=== PATIENT | male | born 1970 | race Two or more races ===

== ENCOUNTER 2020-08-08 09:56 | Emergency (ER) | payer OTHER, SELFPAY ==
--- NOTE | 2020-08-08 10:56 | XR_ITS ---
EXAMINATION: XR CHEST CLINICAL INFORMATION: Cough. COMPARISON: None TECHNIQUE: Frontal view of the chest was obtained. FINDINGS: No significant abnormality is noted involving the heart, lungs, mediastinum, bony thorax or soft tissues. XR/XR chest 1V IMPRESSION: Unremarkable chest examination.
[2020-08-08 11:11] VITALS: BP 159/107; PULSE 94; RESP 17; TEMP 37.3; O2SAT 99; BMI 26.6
--- NOTE | 2020-08-08 11:21 | ED.GENADULT ---
HPI - General Adult General Chief complaint: General Medical Stated complaint: covid symptoms Time Seen by Provider: 08/08/20 10:56 Source: patient Mode of arrival: ambulatory Limitations: language barrier History of Present Illness HPI narrative: 49 y/o male presenting with a few days of flu-like symptoms including subjective fevers, headaches, slight dizziness and diffuse body aches. He also admits to mild nausea but he has been able to eat and drink normally. He denies abdominal pain, shortness of breath, chest pain. He has a slight dry cough but it is not bothersome. He has been taking Tylenol with no improvment. MD complaint: flu-like symptoms Onset (ago): day(s) (2) Location: head and back Radiation: non-radiation Severity: moderate Quality: aching Pain Consistency: intermittent Relieving factors: none Exacerbating factors: movement Associated symptoms: cough, fever/chills, headaches and malaise Treatments prior to arrival: none Related Data Allergies Allergy/AdvReac Type Severity Reaction Status Date / Time No Known Allergies Allergy Verified 08/08/20 11:13 [No Known Allergies*] Review of Systems Review of Systems: Constitutional: + Fever, + Chills ENT/Mouth: + sore throat (mild), No Rhinorrhea, No Swallowing Difficulty Eyes: No Eye Pain, No Swelling, No Redness Cardiovascular: No Chest Pain, No SOB, No Orthopnea, No Edema Respiratory: + Cough, No Sputum, No Wheezing, No dyspnea Gastrointestinal: + Nausea, No Vomiting, No Diarrhea, No abdominal Pain Genitourinary: No Dysuria, No Urinary Frequency, No Hematuria Musculoskeletal: No joint pain, + Myalgias Skin: No Skin Lesions, No rash Neuro: No Weakness, No Numbness, + Dizziness, + Headache Psych: No Anxiety/Panic, No Depression Heme/Lymph: No Bruising, No Lymphadenopathy PMFSH Past Medical History Attestation statement: The following information was validated with the patient. Medical History High cholesterol Social History Social History Advance Directives: No Advance Directives Information Provided: No Physical Exam Vital Signs: Vital Signs: Last Vital Signs Temp 99.1 F 08/08/20 11:11 Pulse 94 08/08/20 11:11 Resp 17 08/08/20 11:11 BP 159/107 H 08/08/20 11:11 Pulse Ox 99 08/08/20 11:11 Body Mass Index 26.6 Appearance: Alert. Oriented X3. No acute distress. Non-toxic appearing ENT: Pharynx normal. Neck: Normal inspection. Neck supple. CVS: Normal heart rate and rhythm. Pulses normal. Respiratory: No respiratory distress. Breath sounds normal. Abdomen: Soft and nontender. +BS x4 Skin: Skin warm and dry. Normal skin color. Normal skin turgor. No rashes. Extremities: No lower extremity edema. Neuro: Oriented X 3. No motor deficit. No sensory deficit. Course Course Course Narrative: 49 y/o male with history of HLD presenting with flu-like symptoms, concerning for COVID-19. VSS on arrival and lungs are clear. no respiratory distress. CXR is normal. Found to be COVID-19 positive. He was counseled on his diagnosis, management and warning signs/symptoms that should get emergent medical evaluation. Stable for discharge. Medical Decision Making Lab Data Labs: Lab Results 08/08/20 Range/Units 11:10 Coronavirus (PCR) POSITIVE A (Negative) Influenza Type A (PCR) NEGATIVE (Negative) Influenza Type B (PCR) NEGATIVE (Negative) RSV RNA Qual (PCR) NEGATIVE (Negative) Critical Care Time Critical Care Time Critical Care Time: No Discharge Plan Discharge Clinical Impression: COVID-19 Patient Disposition: Home, Self-Care Instructions: COVID-19 (Coronavirus Disease 2019) (ED) Additional Instructions: You were found to be COVID positive today. Your blood pressure was elevated, you should follow up with your doctor. Your oxygen levels were normal and your chest x-ray was normal. No indication for admission to the hospital at this time. Recommend taking over the counter cold/flu medications as needed for your symptoms. Take tylenol and/or motrin as needed for fever and headache. Rest and stay hydrated. Drink plenty of water. Do not go out in public for 2 weeks. If you develop difficultly breathing, shortness of breath, chest pain or any other concerning symptom come back to the ER for further evaluation. Print Language: Swedish
[2020-08-08 12:05] LABS: Influenza A PCR NEGATIVE (Negative); Influenza B PCR NEGATIVE (Negative); Resp Syncy Virus RNA Qual PCR NEGATIVE (Negative)
[2020-08-08 12:18] LABS: SARS COV2 PCR INHOUSE POSITIVE (Negative)
== END 2020-08-08 12:45 | disposition home or self-care (01) ==
PROVIDERS: Physician Assistant; Emergency Provider Emergency Medicine
DX: U07.1 COVID-19 (principal); R50.9 Fever, unspecified; R51.9 Headache, unspecified; R42 Dizziness and giddiness
CPT/HCPCS: 0241U; 71045; 99283

== ENCOUNTER 2024-07-01 12:08 | Outpatient (REF) | payer OTHER, SELFPAY ==
[2024-07-01 16:09] LABS: Appearance Urine Clear; Color Urine Yellow; Glucose Urine UA Negative (Negative); Leukocyte Esterase Urine Negative (Negative); Nitrite Urine Negative (Negative); Specific Gravity - Urine 1.015 (1.005-1.025); Urine Blood Negative (Negative); Urine Ketones Negative (Negative); Urine Protein Negative (Neg-Trace)
[2024-07-01 16:22] LABS: MANUAL DIFF FLAG NO
[2024-07-01 16:35] LABS: Basophils Percent Auto 0.4 % (0-2); Eosinophils Absolute Auto 0.2 X10*3/uL (0.0-0.4); Eosinophils Percent Auto 3.2 % (0-4); Hematocrit 44.8 % (42.0-52.0); Imm Gran Abs Auto 0.01 X10*3/uL (0.00-0.03); Imm Gran Pct Auto 0.2 % (0.0-0.4); Lymphocytes Absolute Auto 1.2 X10*3/uL (1.2-4.9); Lymphocytes Percent Auto 25.6 % (20-40); Mean Corpuscular HGB Conc 33.5 g/dl (31.0-36.0); Mean Corpuscular Hemoglobin 32.1 pg (27.0-33.0); Mean Corpuscular Volume 95.9 fL (80.0-98.0); Mean Platelet Volume 10.3 fL (9.4-12.4); Monocytes Absolute Auto 0.4 X10*3/uL (0.1-1.2); Monocytes Percent Auto 9.1 % (2-11); Neutrophils Absolute Auto 2.9 x10*3/uL (2.0-8.3); Neutrophils Percent Auto 61.5 % (45-73); Platelet Count 235 X10*3/uL (160-400); Red Blood Count 4.67 X10*6/uL (4.60-5.80); Red Cell Distribution Width 13.3 % (11.0-16.0); White Blood Count 4.7 X10*3/uL (4.8-10.8)
[2024-07-01 17:02] LABS: Alanine Aminotransferase 44 U/L (0-40); Albumin Level 4.7 g/dL (3.5-5.0); Alkaline Phosphatase 86 U/L (39-117); Anion Gap 13 (12-20); Aspartate Amino Transferase 47 U/L (5-37); Bilirubin Total 0.5 mg/dL (0.0-1.0); Blood Urea Nitrogen 10 mg/dL (9-16); Carbon Dioxide 26 mmol/L (22-29); Chloride 100 mmol/L (96-108); Cholesterol 310 mg/dL (<200); Estimated Glomerular Filt Rate > 60; Glucose Fasting 101 mg/dL (60-99); HDL Cholesterol 53 mg/dL (>40); LDL Cholesterol Calculated 226 mg/dL (<100); Potassium 3.8 mmol/L (3.3-5.1); Sodium 135 mmol/L (135-145); Total Protein 8.2 g/dL (6.5-8.0); Triglycerides 156 mg/dL (<150)
[2024-07-01 17:05] LABS: Prostate Specific Antigen Scr 0.34 ng/mL (<0.05-4.0)
[2024-07-01 17:07] LABS: TSH reflex Free T4 1.65 uIU/mL (0.32-4.0)
== END 2024-07-01 12:09 | disposition home or self-care (01) ==
LOC: HO.HMGCX 12:08
PROVIDERS: Visit Provider Nurse Practitioner Family
DX: I21.9 Acute myocardial infarction, unspecified (principal); R07.9 Chest pain, unspecified; M54.50 Low back pain, unspecified; F41.9 Anxiety disorder, unspecified
CPT/HCPCS: 36415; 72100; 80053; 80061; 81003; 84153; 84443; 85025; 96127; 99202

== ENCOUNTER 2024-07-01 12:08 | Outpatient (AMB) | payer OTHER, SELFPAY ==
[2024-07-01 12:21] VITALS: BP 150/102; PULSE 93; O2SAT 100; BMI 28.6
--- NOTE | 2024-07-01 12:21 | A.OFFPC_ITS ---
Vital Signs 07/01/24 12:21 07/01/24 13:31 Height 5 ft 6 in Weight 177 lb 8 oz BMI 28.6 BP 150/102 H 130/90 H Blood Pressure Location Rt brachial Rt brachial Position Sitting Sitting Pulse 93 Pulse Source Pulse Oximeter Pulse Oximetry (%) 100 Oxygen Delivery Method Room Air Intake Visit Reasons: Est care Heart conditions Allergies No Known Allergies [No Known Allergies*] Allergy (Verified 07/01/24 12:54) Medication List - Last Reconciled 07/01/24 by CHIQUITA Kebede aspirin (Adult Aspirin Regimen) 81 mg PO DAILY carvedilol 6.25 mg PO BID Tobacco use date assessed: 07/01/24 Dental Screening Dental Screen Date: 07/01/24 Did you have a dental visit in the last 12 months?: No Did you have a dental problem in the last 6 months where you did not have access to dental care?: No Was dental information given to patient?: Patient declined HPI Est care Heart conditions HPI Details History of Present Illness The patient is a 53-year-old male presenting (with his nephew for t ranslation)with angina pectoris associated with exertion. The patient experienced a myocardial infarction approximately 10 years ago and has a known history of high anxiety and hypertension. The patient reports that episodes of chest pain have occurred once a week over the past few weeks, typically during physical activity. The pain resolves upon rest, and there is no radiation to the arm. 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 The patient is currently on coreg 6.25 mg twice a day and aspirin 81 mg daily for management. The patient also has a history of herniated disc in the lower back identified on x-rays, presenting with severe pain without radiculopathy or bowel and bladder dysfunction. Social History Review of Systems - Cardiovascular: Reports exertional aleksandar st pain resolving at rest. Denies current chest pain at the time of examination. - Musculoskeletal: Denies radiculopathy, numbness, or tingling in the legs. - Neurological: Denies loss of bowel or bladder control. -psych denies any si or hi Physical Exam -A+O - Cardiovascular- s1 s2, no edema -GI diastasis rectus noted and small umb ilical hernia, soft abd - Musculoskeletal- Negative straight leg raises, positive patellar reflexes. - Respiratory- Lungs clear to auscultati on bilaterally. -appears very anxious Results EKG without anything acute (high anxiety) Plan Patient was informed and verbally consented to the use of an ambient scribe for clinic note documentation during this visit. Discussion Notes Patient Instructions - Continue current medications and start amlodipine (HTN) and Buspirone (anxiety) as prescribed. - Attend cardiology follow-up and echoca rdiogram + stress test as scheduled. - Monitor and immediately report any wor sening or persistent chest pain ( ER). - Refrain from activities that exacerbat e back pain. - Return for follow-up appointment and f urther evaluation based on additional diagnostic testing outcomes. [facility] Medical History (Updated 07/01/24 @ 14:01 [facility] High cholesterol Surgical History (Updated 07/01/24 @ 12:30 by Tawny Mensah CMA) H/O hernia repair H/O cardiac catheterization Family History (Updated 07/01/24 @ 12:31 by Tawny Mensah CMA) Sister Ovarian cancer Brother Throat cancer Social History (Updated 07/01/24 @ 12:29 by Tawny Mensah CMA) Household Members Other:: nephew Housing: Apartment Alcohol intake: current Alcohol intake frequency: a few times a month Patient Tobacco Use Status: Never used Tobacco e-Cigarette/Vaping Use: Never Used service: No Cognitive needs: No Hearing needs: No Vision needs: Yes Questionnaire PHQ-9 Over the last 2 weeks, how often have you been bothered by any of the following problems? 1. Little interest or pleasure in doing things: several days 2. Feeling down, depressed, or hopeless: not at all 3. Trouble falling or staying asleep, or sleeping too much: more than half the days 4. Feeling tired or having little energy: more than half the days 5. Poor appetite or overeating: not at all 6. Feeling bad about yourself - or that you are a failure or have let yourself or your family down: several days 7. Trouble concentrating on things, such as reading the newspaper or watching television: not at all 8. Moving or speaking so slowly that other people could have noticed. Or the opposite - being so fidgety or restless that you have been moving around a lot more than usual: several days 9. Thoughts that you would be better off or of hurting yourself in some way: not at all Total score: 7 Depression Screening Interpretation: Negative Depression Screening Done: Yes 87926 - PHQ-9 Billing: Yes Source: Developed by Drs. Jeremy Qureshi, Sun Wyman, Gus Mitchell and colleagues, with an educational mark from [employer]. Thrive Questionnaire Date Thrive assessed: 06/30/24 I am a: Patient What is your living situation today?: I choose not to answer this question Within the past 12 months, did the food you bought not last and you didn't have the money to get more?: Never true Within the past 12 months, did you worry whether your food would run out before you got money to buy more?: Never true Do you have trouble paying for medicines?: No Do you have trouble getting transportation to medical appointments?: No Do you have trouble paying your heating and electricity bill?: No Do you have trouble taking care of your child, family member or friend?: No Do you have trouble with day-to-day activities such as bathing, preparing meals, shopping, managing finances, etc.?: No Are you currently unemployed and looking for a job?: No Are you interested in more education?: I choose not to answer this question Please select the resources that you would like help with: None Currently or been in a relationship where the following occur: No concerns reported THRIVE Score: 0 AUDIT C Alcohol Use Questionnaire (AUDIT-C) 1. How often do you have a drink containing alcohol?: 2-4 times a month 2. How many drinks containing alcohol do you have on a typical day when you are drinking?: 3 or 4 3. How often do you have six or more drinks on one occasion?: Less than monthly Total Score: 4 ZANE-7 AMB Questionnaire ZANE-7 Date ZANE - 7 assessed: 07/01/24 Feeling nervous, anxious, or on edge: 1 = Several days Not being able to stop or control worryin = Not at all Worrying too much about different things: 0 = Not at all Trouble relaxin = Not at all Being so restless that it is hard to sit still: 0 = Not at all Becoming easily annoyed or irritable: 0 = Not at all Feeling afraid as if something awful might happen: 0 = Not at all Total ZANE-7 score (0-4 normal; 5-9 mild; 10-14 moderate; 15-21 severe): 1 Source: Developed by Drs. Jeremy Qureshi, Sun Wyman, Gus Mitchell and colleagues, with an educational mark from [employer]. ZANE-7 Assessment Billing ZANE-7 Assessment Tool: ZANE-7 Assessment 30184 Physical exam (Primary Care) Vital Signs: Last Vital Signs Pulse 93 07/01/24 12:21 BP 130/90 H 07/01/24 13:31 Pulse Ox 100 07/01/24 12:21 Oxygen Delivery Method Room Air 07/01/24 12:21 BMI result Body Mass Index 28.6 Tobacco/Smoking Status: Tobacco use Status Tobacco use date assessed 07/01/24 07/01/24 12:32 Patient Tobacco Use Status Never used Tobacco 07/01/24 12:32 e-Cigarette/Vaping Use Never Used 07/01/24 12:32 PHQ-9: PHQ-9 Score PHQ-9: Total score 7 07/01/24 13:31 Depression Screening Interpretation: Negative Thrive Assessment: Date of Thrive Assessment Date Thrive assessed 06/30/24 07/01/24 12:32 Currently or been in a relationship where the following occur: No concerns reported Coding Level of Care Code New Pt Level 3 (70301) Diagnoses Myocardial infarct I21.9 Screening for prostate cancer Z12.5 Chest pain R07.9 Lower back pain M54.50 Anxiety F41.9 Additional Codes ZANE-7 Assessment Billing - ZANE-7 Assessment Tool: ZANE-7 Assessment 19781 ([id number]) PHQ-9 - 56186 - PHQ-9 Billing: Yes ([id number]) Assessment & Plan Assessment & Plan (1) Myocardial infarct: Comment: HX of approx 10 years ago Code(s): I21.9 - Acute myocardial infarction, unspecified Category: Medical (2) Screening for prostate cancer: Code(s): Z12.5 - Encounter for screening for malignant neoplasm of prostate Category: Medical (3) Chest pain: Code(s): R07.9 - Chest pain, unspecified Category: Medical (4) Chest pain: Code(s): R07.9 - Chest pain, unspecified Category: Medical (5) Lower back pain: Code(s): M54.50 - Low back pain, unspecified Category: Medical (6) Anxiety: Code(s): F41.9 - Anxiety disorder, unspecified Category: Medical Plan . Orders: Orders Complete Blood Count Auto Diff Today I21.9 - Acute myocardial infarction, unspecified UA CC w/rflx Micro + Cult Today I21.9 - Acute myocardial infarction, unspecified Prostate Specific Antigen Scr Today Z12.5 - Encounter for screening for malig nant neoplasm of prostate AMB EKG-In Office Today I21.9 - Acute myocardial infarction, unspecified, R07.9 - Chest pain, unspecified CA echo transthoracic complete Today I21.9 - Acute myocardial infarction, unspecified, R07.9 - Chest pain, unspecified NM cardiolite stress test Today I21.9 - Acute myocardial infarction, unspecified, R07.9 - Chest pain, unspecified Comprehensive [place]. Panel Fast Today I21.9 - Acute myocardial infarction, unspecified TSH reflex Free T4 Today I21.9 - Acute myocardial infarction, unspecified Lipid Panel Today I21.9 - Acute myocardial infarction, unspecified XR lumbar spine 2-3V Today M54.50 - Low back pain, unspecified CA stress test Today I21.9 - Acute myocardial infarction, unspecified, R07.9 - Chest pain, unspecified Referrals Cardiology Referral I21.9 - Acute myocardial infarction, unspecified, R07.9 - Chest pain, unspecified Medications: New buspirone 5 mg PO BID 30 days 60 tabs 3RF amlodipine 2.5 mg PO DAILY 30 days 30 tabs 3RF
[2024-07-01 13:31] VITALS: BP 130/90
== END 2024-07-01 13:34 | disposition home or self-care (01) ==
PROVIDERS: Visit Provider Nurse Practitioner Family
DX: I21.9 Acute myocardial infarction, unspecified (principal); Z12.5 Encounter for screening for malignant neoplasm of prostate; R07.9 Chest pain, unspecified; M54.50 Low back pain, unspecified; F41.9 Anxiety disorder, unspecified

== ENCOUNTER 2024-07-10 09:41 | Outpatient (REF) | payer OTHER, SELFPAY ==
--- NOTE | ~2024-07-10 | US_ITS ---
EXAMINATION: US ABDOMEN COMPLETE CLINICAL INFORMATION: Abnormal levels of other serum enzymes. COMPARISON: None available. TECHNIQUE: Real-time imaging of the abdominal viscera. Technically difficult study secondary to bowel gas. FINDINGS: PANCREAS: The visualized portion of the pancreas head and body are normal, portion of the pancreatic body and tail, not visualized are obscured by bowel gas. ABDOMINAL AORTA: Not fully visualized obscured by bowel gas. INFERIOR VENA CAVA: Visualized portions are normal. LIVER: Heterogeneous liver texture combined with nodular surface raising suspicion for liver parenchymal disease liver cirrhosis. No ultrasound evidence of focal liver lesion. No intra or extrahepatic biliary dilatation. GALLBLADDER: The gallbladder is physiologically distended without evidence of stones, sludge, polyps, wall thickening or pericholecystic fluid. COMMON BILE DUCT: Normal in caliber measuring 0.5 cm in diameter. RIGHT KIDNEY: No hydronephrosis. No renal calculi or focal parenchymal lesions. The kidney measures 10.7 cm in maximum dimension. LEFT KIDNEY: No hydronephrosis. No renal calculi or focal parenchymal lesions. The kidney measures 10.3 cm in maximum dimension. Echogenic foci middle Pole possibly a tiny nonobstructing stones. SPLEEN: The spleen measures 7.6 cm in maximum dimension. FREE FLUID: None. US/US abdomen complete IMPRESSION: 1. Heterogeneous liver texture with nodular surface raising suspicion for liver parenchymal disease liver cirrhosis. 2. Echogenic foci in the left kidney could be a tiny nonobstructing stones. No hydronephrosis. 3. No ultrasound evidence of focal liver lesion. Electronically signed by: Deo Ellis MD 07/27/2024 01:04 PM ALEX
== END 2024-07-10 09:42 | disposition home or self-care (01) ==
LOC: HO.US 09:41
PROVIDERS: PCP Nurse Practitioner Family; Visit Provider Nurse Practitioner Family
DX: R74.8 Abnormal levels of other serum enzymes (principal)
CPT/HCPCS: 76700

== ENCOUNTER → 2024-07-17 12:35 | Outpatient (REF) | payer OTHER, SELFPAY ==
--- NOTE | 2024-07-17 12:48 | CA_ITS ---
Transthoracic Echocardiogram Patient (Last, First, Middle): Mansoor Terrell, Gender: Male Date of : 1970 Age: 53 Procedure Date: 07/17/2024 Procedure Type: Transthoracic Echocardiogram Location: OP Height: 165.1 cm Weight: 78.93 kg BSA: 1.86 m2 Heart Rate: 74 bpm BP: 132 / 88 mmHg Amphibious Operations Officer: SB Referring MD: Rod Parker [facility] Cost And Risk Analysis Manager: Nolan Martin MD Symptoms: R07.9 - Chest pain, unspecified Study Quality: Adequate w contrast ECG Rhythm: Sinus with PVC Conclusions: - 1. Mildly reduced LV ejection fraction 45-50% with regional wall motion abnormality in LAD territory 2. Normal cardiac valvular Doppler 3. No gross pericardial effusion Findings Procedure Information Contrast agent, definity, is being given per protocol without apparent complications. Left Ventricle Normal left ventricular cavity size. There is normal left ventricular wall thickness. The left ventricular systolic function is mildly decreased. The visually estimated ejection fraction is between 45-50%. Spectral Doppler is indicative of an impaired relaxation filling pattern. E/E prime ratio is between 8 and 15 consistent with indeterminate filling pressures. Wall Motion Rest Echo Findings The apical inferior, basal inferoseptal, and mid anteroseptal segments are hypokinetic. The apex, apical anterior, and apical septum segments are akinetic. All other scored wall segments showed normal motion. Right Ventricle Normal right ventricular cavity size and systolic function. Atria Both atria are normal in size. There is no evidence of interatrial shunt. Aortic Valve Normal aortic valve structure and function. There is no aortic valve stenosis. There is no aortic valve regurgitation. Mitral Valve Normal mitral valve structure and function. There is trace mitral valve regurgitation. There is no mitral valve stenosis. Pulmonic Valve The pulmonic valve was not well visualized. Tricuspid Valve Likely normal tricuspid valve structure and function. Tricuspid regurgitation envelope is inadequate for calculation of right ventricular systolic pressure. Normal right atrial pressure. Great Vessels All visible segments of the aorta are normal in size. The pulmonary artery was not well visualized. There is no dilatation of the ascending aorta measuring 3.30 cm. Venous The inferior vena cava is normal in size and collapses greater than 50% with inspiration. Pericardium/Pleural There is no evidence of pericardial effusion. Prior Study Comparison No prior study available for comparison. Measurements 2D Linear Measurements IVSd: 1.00 0.6-0.9/0.6-1.0 cm LVIDd: 5.06 3.9-5.3/4.2-5.9 cm LVIDd Index: 2.72 2.4-3.2/2.2-3.1 cm/m2 LVIDs: 3.55 2.0-3.6 cm LVPWd: 0.87 0.7-1.1 cm LA Diam: 4.30 2.7-3.8/3.0-4.0 cm LAIDs Index: 2.31 1.5-2.3 cm/m2 LV Mass: 211.09 67-162/88-224 g LV Mass Index: 113.49 43-95/49-115 g/m2 LVOT Diam: 2.00 3.0+(-)1.3 cm 2D Systolic Function EF 4C: 43.40 >55% EF 2C: 49.50 >55% EF BiP: 46.00 >55% Mitral Valve MV Pk E: 0.51 MV PK A: 0.72 MV Decel Time: 190.00 E/A: 0.70 E'Lateral: 3.37 E'Medial: 5.55 E/E' Med: 9.30 E/E' Lat: 15.30 PHT: 56.00 MVA PHT: 3.93 Decel Edmunds: 2.71 Aortic Valve AoV Pk Erickson: 1.14 AoV Pk Grad: 5.00 JOSELUIS: 2.39 LVOT LVOT Pk Erickson: 0.87 LVOT Mn Erickson: 0.68 LVOT VTI: 0.17 LVOT Pk Grad: 3.00 LVOT Mn Grad: 2.00 LVOT Diam: 2.00 LVOT Area: 3.14 Diastolic Function MV Pk E: 0.51 MV Pk A: 0.72 E/A: 0.70 E'Medial: 5.55 E/E' Med: 9.30 E' Laterial: 3.37 E/E' Lat: 15.30 Right Ventricle TAPSE (mm): 20.00 TVS' Erickson: 11.80 Tricuspid Valve RA Press: 3.00 Great Vessels Aorta Sinus of Valsalva: 3.40 2.0-3.5 cm Ao Asc: 3.30 2.1-3.4 cm Pulmonary Valve PV Pk Erickson: 1.05 Peak PV Grad: 4.00 Updated in Other Vendor System with Status of Final Nolan Martin MD electronically signed on 07/18/2024 3:55:58 PM with status of Final
== END ==
LOC: HO.CARD 12:35
PROVIDERS: PCP Nurse Practitioner Family; Visit Provider Nurse Practitioner Family
DX: R07.9 Chest pain, unspecified (principal); I21.9 Acute myocardial infarction, unspecified
CPT/HCPCS: 93306; Q9957

== ENCOUNTER → 2024-07-17 12:48 | Outpatient (BNV) | payer OTHER, SELFPAY | PROVIDERS: PCP Nurse Practitioner Family; Visit Provider Internal Medicine Cardiovascular Disease | DX: R07.9 Chest pain, unspecified (principal) | CPT/HCPCS: 93306 ==

== ENCOUNTER 2024-09-04 11:36 | Outpatient (AMB) | payer OTHER, SELFPAY ==
[2024-09-04 12:19] VITALS: BP 128/84; PULSE 90; BMI 28.5
--- NOTE | 2024-09-04 12:19 | A.OFFVIS_ITS ---
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 He used to live with the [place] but has moved here few years back. It seems that he underwent cardiac catheterization while [facility] for a heart attack around 11 years ago. The actual details are not very clear. He has undergone recent echocardiogram that suggestive of and LAD territory infarction. EKGs also suggesting the same. Patient has not had any cardiology follow-up for many years. He does not have any clear-cut anginal-type symptoms and in fact denies any chest pains. However, he states he gets short of breath with activity. He is also describing some episodes of heart fluttering at different times. He has been referred for further evaluation. He denies any history of smoking or alcohol or drugs. Denies any history of diabetes. He denies any history of hypertension, but it seems his blood pressure has been high at times and PCP note mentions use of carvedilol/amlodipine-but patient not taking these meds at this time. [facility] Medical History (Updated 09/04/24 @ 12:43 by Andrew Iqbal MD) Myocardial infarction involving left anterior descending (LAD) coronary artery Atherosclerotic cardiovascular disease High cholesterol Surgical History H/O hernia repair H/O cardiac catheterization Family History (Updated 09/04/24 @ 12:34 by Andrew Iqbal MD) Sister Ovarian cancer Brother Throat cancer Father Stroke Social History Household Members Other:: nephew Housing: Apartment Alcohol intake: current Alcohol intake frequency: a few times a month Patient Tobacco Use Status: Never used Tobacco e-Cigarette/Vaping Use: Never Used service: No Cognitive needs: No Hearing needs: No Vision needs: Yes Review of Systems Const Denies chills, Denies fatigue, Denies fever(s), Denies weight gain and Denies weight loss ENT Denies dizziness Card Denies chest pain, Reports leg edema, Denies lightheadedness, Denies palpitations, Reports dyspnea on exertion, Denies orthopnea and Denies other Resp Denies cough and Reports dyspnea on exertion GI Denies hematochezia and Denies change in stool character Musc Denies abnormal gait, Denies muscle weakness, Denies numbness, Denies radiating pain into limb and Denies tingling Neuro Denies abnormal gait, Denies dizziness, Denies numbness and Denies tingling Endo Denies fatigue and Denies palpitations Physical Exam Vital Signs: Last Vital Signs Pulse 90 09/04/24 12:19 BP 128/84 09/04/24 12:19 BMI result Body Mass Index 28.5 Const General: comfortable and no acute distress Orientation/consciousness: patient oriented x3 HEENT Other: Unremarkable Head: Yes normal to inspection Neck Neck: Yes normal visual inspection Chest Chest palpation & inspection: normal inspection of the chest Resp Auscultation: clear to auscultation bilaterally Cardio Palpation: normal PMI Heart sounds: S1 normal heart sound present, S2 normal heart sound present, no gallops, no murmurs and no rubs GI Palpation (GI): Soft to palpation Back/Spine/Pelvis Other: unremarkable Skin General skin exam: no rashes or lesions noted Neuro General: patient oriented x3 Extrem General: Yes normal to inspection Psych Mental Status: mental status grossly normal Assessment & Plan Assessment & Plan (1) Atherosclerotic cardiovascular disease: Code(s): I25.10 - Atherosclerotic heart disease of [place] coronary artery without angina pectoris Category: Medical (2) Myocardial infarction involving left anterior descending (LAD) coronary a rtery: Code(s): I21.02 - ST elevation (STEMI) myocardial infarction involving left anterior descending coronary artery Category: Medical (3) Dyslipidemia: Code(s): E78.5 - Hyperlipidemia, unspecified Category: Medical Plan Recent EKG shows sinus rhythm at 72/Min; old anterolateral infarction. In the recent echocardiogram, LVEF is 45-50%. Wall motion abnormality in the LAD territory. [place], apical anterior/apical septal areas are akinetic. No significant valve findings. Overall, suspect prior LAD territory infarction that might have happened around 11 years ago as per description. Currently having some shortness of breath and palpitations but no clear-cut angina. It seems that he already has stress perfusion imaging study arranged through his PCP which is coming up soon. He can complete that. After that, we will decide if he requires a diagnostic catheterization. With regard to palpitations, obtain Holter. Possible PACs versus PVCs. Less likely other arrhythmias. With regard to medications, continue aspirin and statins. I am not clear how compliant he is as it only LDL level we have his very high at 226 mg/dL. Per PCP note, he has been on Coreg but not taking it anymore. Can await nuclear stress as above and then reintroduce as necessary. Per family, he apparently does not like taking many medications. There is also mention of amlodipine but he does not take that either. Blood pressure seems reasonable today. We will follow up after the testing. In the interim, at least continue aspirin/statins. We will need to follow-up lipids in due course. Discussed with family who came for appointment. Discussed using guideman. (available old cardiology records are in [place]) Orders: Orders ECG 3 day holter monitor Today R00.2 - Palpitations Coding Level of Care Code New Pt Level 4 (54031) Diagnoses Atherosclerotic cardiovascular disease I25.10 Myocardial infarction involving left anterior descending (LAD) coronary artery I21.02 Dyslipidemia E78.5
== END 2024-09-04 12:42 | disposition home or self-care (01) ==
PROVIDERS: PCP Nurse Practitioner Family; Visit Provider Internal Medicine
DX: I25.10 Atherosclerotic heart disease of native coronary artery without angina pectoris (principal); I21.02 ST elevation (STEMI) myocardial infarction involving left anterior descending coronary artery; E78.5 Hyperlipidemia, unspecified
CPT/HCPCS: 99204

== ENCOUNTER → 2024-09-04 11:36 | Outpatient (BNVA) | payer OTHER, SELFPAY | PROVIDERS: PCP Nurse Practitioner Family; Visit Provider Internal Medicine | DX: I25.10 Atherosclerotic heart disease of native coronary artery without angina pectoris (principal); I21.02 ST elevation (STEMI) myocardial infarction involving left anterior descending coronary artery; E78.5 Hyperlipidemia, unspecified; R00.2 Palpitations | CPT/HCPCS: 99202 ==

== ENCOUNTER → 2024-09-23 10:56 | Outpatient (REF) | payer OTHER, SELFPAY | LOC: HO.CARD 10:56 | PROVIDERS: PCP Nurse Practitioner Family; Visit Provider Internal Medicine | DX: R00.2 Palpitations (principal) | CPT/HCPCS: 93242 ==

== ENCOUNTER → 2024-09-23 11:10 | Outpatient (BNV) | payer OTHER, SELFPAY | PROVIDERS: PCP Nurse Practitioner Family; Visit Provider Internal Medicine Cardiovascular Disease | DX: R00.2 Palpitations (principal) | CPT/HCPCS: 93244 ==

== ENCOUNTER 2024-09-23 13:58 | Outpatient (AMB) | payer OTHER, SELFPAY ==
[2024-09-23 14:01] VITALS: BP 138/86; PULSE 87; TEMP 36.7; O2SAT 97; BMI 28.6
--- NOTE | 2024-09-23 14:01 | A.OFFPC_ITS ---
Vital Signs 09/23/24 14:01 Height 5 ft 6 in Weight 177 lb BMI 28.6 BP 138/86 Blood Pressure Location Rt brachial Position Sitting Pulse 87 Pulse Source Pulse Oximeter Temp 98.0 F Temp Source Oral Pulse Oximetry (%) 97 Intake Visit Reasons: 3 month follow up Allergies No Known Allergies [No Known Allergies*] Allergy (Verified 09/23/24 14:02) Medication List - Last Reconciled 09/23/24 by ORTEGA Kebede- aspirin (Adult Aspirin Regimen) 81 mg PO DAILY atorvastatin 40 mg PO BEDTIME buspirone 5 mg PO BID 30 days polyethylene glycol 3350 (Miralax) 17 grams PO DAILY Tobacco use date assessed: 09/23/24 Dental Screening Dental Screen Date: 09/23/24 Did you have a dental visit in the last 12 months?: Yes Did you have a dental problem in the last 6 months where you did not have access to dental care?: No Was dental information given to patient?: Patient has dentist HPI 3 month follow up HPI Details Chief Complaint Blood in the stool with each bowel movement for the last 3 weeks. History of Present Illness The patient is a 53-year-old male presenting with blood in his stool. He reports experiencing hematochezia with almost every bowel movement, but not every occurrence, over the past 3 weeks. He denies any pain associated with defecation but describes constipation. There is no report of associated external hemorr hoids or fissures, although there is noted stenosis of the anus. A prior abdominal ultrasound showed abnormal findings concerning possible cirrhosis, and a full workup including assessing the hematochezia is planned. For cardiac concerns, the patient, who has a significant cardiac history, is currently wearing a Holter monitor, which is essential for tracking any episodes of discomfort or arrhythmia. A stress test is planned for the end of the month. No prior specific treatments or interventions for the bleeding were mentioned. Additionally, the patient reports experiencing small, red, papular lesions on his scalp, which are scattered and singular. Social History - He is accompanied by a relative for tr anslation assistance. Health Maintenance - Discussion around dietary improvements to manage constipation and cholesterol levels. Review of Systems - Gastrointestinal: Reports blood with b owel movements, constipation. - Dermatological: Reports itchy, red pap ular lesions on the scalp. -denies any CP, fevers, chills, N/V Physical Exam General: Cooperative, healthy appearing, comfortable, no acute distress and well developed Orientation: Patient oriented x3 Head: Normal to inspection Ears: Hearing grossly normal bilaterally Nose: Normal external nose present Face and sinus: Normal facial exam Eyes: Appearance normal, both eyes and all related structures Neck: Normal visual inspection and Yes full ROM Respiratory: Normal respiratory effort and able to speak in complete sentences. Clear to auscultation bilaterally Cardiovascular: Regular rate and rhythm. Normal S1 and S2 GI: Normal to inspection. Soft to palpation and nontender. Rectal exam showed no signs of any external hemorrhoids or fissures, anus was slightly stenotic, no lesions palpated, no masses palpated, umbilical hernia appreciated Skin: Small, papular lesions noted scattered singular throughout the scalp Neuro: Patient oriented x3 Extremities: Normal to inspection Results - Labs and diagnostics implied but not s pecified in detail. Plan - Emphasize the importance of noting any discomfort while wearing the Holter monitor to aid in cardiac assessment. - Begin treatment with MiraLAX to addres s constipation. - Consuming a healthier diet to improve cholesterol levels, already on statin, may increase in the future. - Follow-up with gastroenterology for fu rther evaluation concerning the he matochezia and possible cirrhosis. - Future colonoscopy is recommended. - Referral to dermatology for assessment of scalp lesions. Discussion Notes During our discussion, I explained the necessity of optimizing dietary habits to support bowel regularity and manage cholesterol. We emphasized that documenting discomfort episodes with the Holter monitor might aid in understanding his cardiac symptoms better. I advised him on using MiraLAX for his constipation. I made him aware of the need for further evaluation of his gastrointestinal symptoms and informed him of the potential for a colonoscopy. We also discussed the abnormal liver findings and scheduled follow-up with gastroenterology. To address the scalp lesions, I will make a dermatology referral. Patient Instructions - Use MiraLAX as directed to relieve con stipation. - Report any discomfort while wearing th e Holter monitor. - Maintain a healthy diet to support e [facility] and manage cholesterol. - Attend follow-up appointments with gas troenterology for further evaluation. - Seek consultation with dermatology for scalp lesions. [facility] Medical History Myocardial infarction involving left anterior descending (LAD) coronary artery Atherosclerotic cardiovascular disease High cholesterol Surgical History H/O hernia repair H/O cardiac catheterization Family History Sister Ovarian cancer Brother Throat cancer Father Stroke Social History Household Members Other:: nephew Housing: Apartment Alcohol intake: current Alcohol intake frequency: a few times a month Patient Tobacco Use Status: Never used Tobacco e-Cigarette/Vaping Use: Never Used service: No Cognitive needs: No Hearing needs: No Vision needs: Yes Questionnaire PHQ-9 Over the last 2 weeks, how often have you been bothered by any of the following problems? 1. Little interest or pleasure in doing things: not at all 2. Feeling down, depressed, or hopeless: not at all 3. Trouble falling or staying asleep, or sleeping too much: several days 4. Feeling tired or having little energy: several days 5. Poor appetite or overeating: several days 6. Feeling bad about yourself - or that you are a failure or have let yourself or your family down: not at all 7. Trouble concentrating on things, such as reading the newspaper or watching television: not at all 8. Moving or speaking so slowly that other people could have noticed. Or the opposite - being so fidgety or restless that you have been moving around a lot more than usual: not at all 9. Thoughts that you would be better off or of hurting yourself in some way: not at all Total score: 3 Depression Screening Interpretation: Negative Depression Screening Done: Yes 08926 - PHQ-9 Billing: Yes Source: Developed by Drs. Jeremy Qureshi, Sun Wyman, Gus Mitchell and colleagues, with an educational mark from [employer]. Thrive Questionnaire Date Thrive assessed: 09/23/24 I am a: Patient What is your living situation today?: I have a steady place to live Within the past 12 months, did the food you bought not last and you didn't have the money to get more?: Never true Within the past 12 months, did you worry whether your food would run out before you got money to buy more?: Never true Do you have trouble paying for medicines?: No Do you have trouble getting transportation to medical appointments?: No Do you have trouble paying your heating and electricity bill?: No Do you have trouble taking care of your child, family member or friend?: No Do you have trouble with day-to-day activities such as bathing, preparing meals, shopping, managing finances, etc.?: No Are you currently unemployed and looking for a job?: No Are you interested in more education?: I choose not to answer this question Please select the resources that you would like help with: None Currently or been in a relationship where the following occur: No concerns reported THRIVE Score: 0 AUDIT C Alcohol Use Questionnaire (AUDIT-C) 1. How often do you have a drink containing alcohol?: 2-3 times a week 2. How many drinks containing alcohol do you have on a typical day when you are drinking?: 1 or 2 3. How often do you have six or more drinks on one occasion?: Never Total Score: 3 Score Reviewed/Action Taken: Yes ZANE-7 AMB Questionnaire ZANE-7 Date ZANE - 7 assessed: 09/23/24 Feeling nervous, anxious, or on edge: 1 = Several days Not being able to stop or control worryin = Not at all Worrying too much about different things: 0 = Not at all Trouble relaxin = Not at all Being so restless that it is hard to sit still: 0 = Not at all Becoming easily annoyed or irritable: 0 = Not at all Feeling afraid as if something awful might happen: 0 = Not at all Total ZANE-7 score (0-4 normal; 5-9 mild; 10-14 moderate; 15-21 severe): 1 Source: Developed by Drs. Jeremy Qureshi, Sun Wyman, Gus Mitchell and colleagues, with an educational mark from [employer]. ZANE-7 Assessment Billing ZANE-7 Assessment Tool: ZAEN-7 Assessment 95263 Physical exam (Primary Care) Vital Signs: Last Vital Signs Temp 98.0 F 09/23/24 14:01 Pulse 87 09/23/24 14:01 BP 138/86 09/23/24 14:01 Pulse Ox 97 09/23/24 14:01 BMI result Body Mass Index 28.6 Tobacco/Smoking Status: Tobacco use Status Tobacco use date assessed 09/23/24 09/23/24 14:04 Patient Tobacco Use Status Never used Tobacco 09/23/24 14:04 e-Cigarette/Vaping Use Never Used 09/23/24 14:04 PHQ-9: PHQ-9 Score PHQ-9: Total score 3 09/23/24 14:04 Depression Screening Interpretation: Negative Thrive Assessment: Date of Thrive Assessment Date Thrive assessed 09/23/24 09/23/24 14:04 Currently or been in a relationship where the following occur: No concerns reported Coding Level of Care Code Est Pt Level 3 (84802) Diagnoses Scalp lesion L98.9 Blood in stool K92.1 Myocardial infarct I21.9 Dyslipidemia E78.5 Constipation K59.00 Additional Codes ZANE-7 Assessment Billing - ZANE-7 Assessment Tool: ZANE-7 Assessment 92712 ([id number]) PHQ-9 - 14442 - PHQ-9 Billing: Yes ([id number]) Assessment & Plan Assessment & Plan (1) Scalp lesion: Code(s): L98.9 - Disorder of the skin and subcutaneous tissue, unspecified Category: Medical (2) Blood in stool: Code(s): K92.1 - [place] Category: Medical (3) Myocardial infarct: Comment: HX of approx 10 years ago Code(s): I21.9 - Acute myocardial infarction, unspecified Category: Medical (4) Dyslipidemia: Code(s): E78.5 - Hyperlipidemia, unspecified Category: Medical (5) Constipation: Code(s): K59.00 - Constipation, unspecified Category: Medical Plan . Orders: Referrals Dermatology Referral L98.9 - Disorder of the skin and subcutaneous tissue, unspecified Medications: New polyethylene glycol 3350 (Miralax) 17 grams PO DAILY 238 grams 0RF
== END 2024-09-23 16:01 | disposition home or self-care (01) ==
PROVIDERS: Visit Provider Nurse Practitioner Family
DX: K92.1 Melena (principal); L98.9 Disorder of the skin and subcutaneous tissue, unspecified; I25.2 Old myocardial infarction; E78.5 Hyperlipidemia, unspecified; K59.00 Constipation, unspecified

== ENCOUNTER → 2024-10-03 09:59 | Outpatient (REF) | payer OTHER, SELFPAY ==
--- NOTE | 2024-10-03 10:03 | CA_ITS ---
Acquisition Time: 2024-10-03 10:09:43 Total Exercise Time: 00:08:30 Test Indications: Abnormal ECG CAD Medications: ASA ATORVASTATIN BUSPIRONE Protocol: ANDRE Max HR: 148 BPM 89% of Pred: 166 BPM Max BP: 180/100 mmHG Max Work Load: 10.1 METS Exercise stress test with exercise 8 min 30 sec of Andre protocol, achieving 88% MPHR, without anginal symptoms, with frequent unifocal PVCs throughout test however less in stage 3 of exercise, with hypertensive response to exercise, max BP 180/100, with Baseline EKG showing sagging ST depressions inferolateral leads, then in recovery there are noted ST depressions in those leads - equivocal for ischemia. Nuclear images pending. Test reviewed with Dr Churchill. Referred By: Rod Parker Electronically Signed By: PATTI ERIC
== END ==
LOC: HO.CARD 09:59
PROVIDERS: PCP Nurse Practitioner Family; Visit Provider Nurse Practitioner Family
DX: R07.9 Chest pain, unspecified (principal); I21.9 Acute myocardial infarction, unspecified
CPT/HCPCS: 78452; 93017; A9500; J0280; J2785

== ENCOUNTER → 2024-10-03 10:03 | Outpatient (BNV) | payer OTHER, SELFPAY | PROVIDERS: PCP Nurse Practitioner Family; Visit Provider Nurse Practitioner Family | DX: I21.9 Acute myocardial infarction, unspecified (principal) | CPT/HCPCS: 78452; 93016; 93018 ==

== ENCOUNTER 2024-10-29 09:00 | Outpatient (REF) | payer OTHER, SELFPAY ==
[2024-10-29 10:15] LABS: Alanine Aminotransferase 25 U/L (0-40); Albumin Level 4.6 g/dL (3.5-5.0); Alkaline Phosphatase 89 U/L (39-117); Anion Gap 10 (12-20); Aspartate Amino Transferase 30 U/L (5-37); Bilirubin Total 0.6 mg/dL (0.0-1.0); Blood Urea Nitrogen 12 mg/dL (9-16); Calcium 9.6 mg/dL (8.4-10.2); Carbon Dioxide 28 mmol/L (22-29); Chloride 105 mmol/L (96-108); Cholesterol 159 mg/dL (<200); Estimated Glomerular Filt Rate > 60; Glucose Fasting 84 mg/dL (60-99); HDL Cholesterol 47 mg/dL (>40); LDL Cholesterol Calculated 91 mg/dL (<100); Potassium 4.1 mmol/L (3.3-5.1); Sodium 139 mmol/L (135-145); Triglycerides 107 mg/dL (<150)
[2024-10-29 10:36] LABS: HBc Num1 6.24 S/CO (0.00-0.79); Hepatitis A Antibody IgM 0.24 Index (0-0.79); Hepatitis B Surface Antigen Negative (Negative); ~HepC Num1 0.25 S/CO (0.00-0.79); ~Hepatitis A Antibody IgM Nonreactive (Nonreactive); ~Hepatitis B Surface Antibody REACTIVE (Nonreactive); ~Hepatitis C Antibody Nonreactive (Nonreactive)
[2024-10-29 11:59] LABS: HBc Num2 6.04 S/CO; HBc Num3 6.62 S/CO; Hepatitis B Core Antibody Reactive (Nonreactive)
== END 2024-10-29 09:01 | disposition home or self-care (01) ==
LOC: HO.LAB 09:00
PROVIDERS: PCP Nurse Practitioner Family; Visit Provider Nurse Practitioner Family
DX: R74.8 Abnormal levels of other serum enzymes (principal); E78.5 Hyperlipidemia, unspecified
CPT/HCPCS: 36415; 80053; 80061; 86704; 86706; 86709; 86803; 87340

== ENCOUNTER 2024-10-31 14:44 | Outpatient (AMB) | payer OTHER, SELFPAY ==
[2024-10-31 14:50] VITALS: BP 157/96; PULSE 98; BMI 28.5
--- NOTE | 2024-10-31 14:50 | A.OFFVIS_ITS ---
Vital Signs 10/31/24 14:50 Height 5 ft 6 in Weight 176 lb 5.917 oz BMI 28.5 BP 157/96 H Blood Pressure Location Lt brachial Position Sitting Pulse 98 Intake Visit Reasons: Liver Disease, BRB per rectum w BM Intake Note: Mansoor presents in the office as a new patient for liver disease and BRB per rectum. CC: He states that he has been having bleeding for two months. He states he sometimes has constipation and he has acid pains in the abdomen. Food feels like it gets stuck in the abdomen. Bad Credit Collector Required: Yes Allergies No Known Allergies [No Known Allergies*] Allergy (Verified 10/31/24 14:51) HPI Comments Details: 53 y.o M with PMH of etOH use disorder, HTN, HLD, CAD s/p PCI in his 40s, who is here for following issues - Reports feeling of bloating and fullness x 2 months without N/V. No change in bowel habits. No unintentional weight loss. No new meds. Did travel to 2 months ago and that where the sx started. - With this he also started experiencing rectal bleeding after defecation. BM is brown, blood comes after and on wiping. Sometimes has pain on defecation. Last colo was in 2022 in [facility] - hemorrhoids +. No polyps as far pt is aware. Done at [facility]. These sx have resolved since. Currently no GI sx. - elevated LFTs noted 06/2024 which have since normalized. Drinks 8 oz of rum daily. Drinks more when he is traveling. Used to drink 16 oz but cut down due to abd discomfort above. Does not smoke. No IVDU. Mother had cirrhosis US 07/2024: LIVER: Heterogeneous liver texture combined with nodular surface raising suspicion for liver parenchymal disease liver cirrhosis. No ultrasound evidence of focal liver lesion. No intra or extrahepatic biliary dilatation. GALLBLADDER: The gallbladder is physiologically distended without evidence of stones, sludge, polyps, wall thickening or pericholecystic fluid. COMMON BILE DUCT: Normal in caliber measuring 0.5 cm in diameter. RIGHT KIDNEY: No hydronephrosis. No renal calculi or focal parenchymal lesions. The kidney measures 10.7 cm in maximum dimension. LEFT KIDNEY: No hydronephrosis. No renal calculi or focal parenchymal lesions. The kidney measures 10.3 cm in maximum dimension. Echogenic foci middle Pole possibly a tiny nonobstructing stones. SPLEEN: The spleen measures 7.6 cm in maximum dimension. [facility] Medical History Myocardial infarction involving left anterior descending (LAD) coronary artery Atherosclerotic cardiovascular disease High cholesterol Surgical History H/O hernia repair H/O cardiac catheterization Family History Sister Ovarian cancer Brother Throat cancer Father Stroke Social History Household Members Other:: nephew Housing: Apartment Alcohol intake: current Alcohol intake frequency: a few times a month Patient Tobacco Use Status: Never used Tobacco e-Cigarette/Vaping Use: Never Used service: No Cognitive needs: No Hearing needs: No Vision needs: Yes Review of Systems Const All systems reviewed & are unremarkable except as noted in HPI and below Physical Exam Vital Signs: Last Vital Signs Pulse 98 10/31/24 14:50 BP 157/96 H 10/31/24 14:50 BMI result Body Mass Index 28.5 No apparent distress Nonicteric Abdomen soft, nondistended Alert and oriented x3, normal gait Assessment & Plan Assessment & Plan (1) Cirrhosis of liver: Code(s): K74.60 - Unspecified cirrhosis of liver Category: Medical (2) Constipation: Code(s): K59.00 - Constipation, unspecified Category: Medical (3) Blood in stool: Code(s): K92.1 - [place] Category: Medical (4) Alcohol use disorder: Code(s): F10.90 - Alcohol use, unspecified, uncomplicated Category: Medical Plan 1. Rectal bleeding Resolved. Suspect likely hemorrhoidal bleeding while pt was straining and constipated. BMs regular since taking bowel regimen. Last colo 2022 was normal except hemorrhoids per his report. Will get records from [facility] to confirm and assimilate in his records at [facility]. 2. EtOH related liver disease Reviewed with the pt that liver appearance on ultrasoundlikely overstated in the setting of active etOH use. Strongly counseled on etOH abstinence and anticipate liver function to improve with at least 3-6 months of sobriety. He was also counseled on incorporating 150 mins per week of mod intensity exercise and controllign metabolic factors such as HLD to prevent progression if liver disease from non-etOH fatty liver. Plan: - Strict etOH abstinence - Recheck US and MELD labs in 6 months - Will also get work up for other chronic liver disease at that point Follow up 6 months Orders: Orders US abdomen comp w elastography 6 Months K74.60 - Unspecified cirrhosis of liver, R74.8 - Abnormal levels of other serum enzymes Phosphatidylethanol, Blood 6 Months K74.60 - Unspecified cirrhosis of liver Hemoglobin A1c 6 Months K74.60 - Unspecified cirrhosis of liver Immunoglobulin G 6 Months K74.60 - Unspecified cirrhosis of liver Immunoglobulin A 6 Months K74.60 - Unspecified cirrhosis of liver Alpha 1 Anti-trypsin 6 Months K74.60 - Unspecified cirrhosis of liver Alpha Fetoprotein 6 Months K74.60 - Unspecified cirrhosis of liver Liver Kidney Microsomal Ab 6 Months K74.60 - Unspecified cirrhosis of liver Smooth Muscle Antibody 6 Months K74.60 - Unspecified cirrhosis of liver Complete Blood Count no Diff 6 Months K74.60 - Unspecified cirrhosis of liver Comprehensive Met. Panel 6 Months K74.60 - Unspecified cirrhosis of liver Prothrombin Time INR 6 Months K74.60 - Unspecified cirrhosis of liver IRON PROFILE 6 Months K74.60 - Unspecified cirrhosis of liver Lipid Panel 6 Months K74.60 - Unspecified cirrhosis of liver HIV Ab/Ag 6 Months K74.60 - Unspecified cirrhosis of liver Transglutaminase IgA 6 Months K74.60 - Unspecified cirrhosis of liver MYRON Reflex Titer and Pattern 6 Months K74.60 - Unspecified cirrhosis of liver Ceruloplasmin 6 Months K74.60 - Unspecified cirrhosis of liver Ferritin 6 Months K74.60 - Unspecified cirrhosis of liver Mitochondrial Antibody 6 Months K74.60 - Unspecified cirrhosis of liver TSH reflex Free T4 6 Months K74.60 - Unspecified cirrhosis of liver Coding Level of Care Code New Pt Level 4 (42249) Complex EM visit Add On G2211 Diagnoses Cirrhosis of liver K74.60 Constipation K59.00 Blood in stool K92.1 Alcohol use disorder F10.90
== END 2024-10-31 15:26 | disposition home or self-care (01) ==
LOC: HO.HGI 14:45
PROVIDERS: PCP Nurse Practitioner Family; Visit Provider Internal Medicine
DX: K74.60 Unspecified cirrhosis of liver (principal); K59.00 Constipation, unspecified; K92.1 Melena; F10.90 Alcohol use, unspecified, uncomplicated
CPT/HCPCS: 99204; G2211

== ENCOUNTER → 2024-10-31 14:44 | Outpatient (BNVA) | payer OTHER, SELFPAY | PROVIDERS: PCP Nurse Practitioner Family; Visit Provider Internal Medicine | DX: K74.60 Unspecified cirrhosis of liver (principal); K59.00 Constipation, unspecified; K92.1 Melena; F10.90 Alcohol use, unspecified, uncomplicated | CPT/HCPCS: 99202 ==

== ENCOUNTER 2024-11-12 10:23 | Outpatient (AMB) | payer OTHER, SELFPAY ==
--- NOTE | 2024-11-12 10:29 | MHC.OFFVIS ---
Vital Signs 11/12/24 10:30 Height 5 ft 6 in Weight 176 lb 12.972 oz BMI 28.5 BP 124/76 Blood Pressure Location Lt brachial Position Sitting Pulse 84 Pulse Source Pulse Oximeter Intake Visit Reasons: F/U Holter Home Health Attendant Required: Yes Home Health Attendant Services: Home Health Attendant Present Home Health Attendant Name: Maryjane [id number] Accompanied by: Nephew or Niece Allergies No Known Allergies [No Known Allergies*] Allergy (Verified 10/31/24 14:51) Medication List - Last Reconciled 11/12/24 by Andrew Iqbal MD amlodipine 2.5 mg PO DAILY aspirin (Adult Aspirin Regimen) 81 mg PO DAILY atorvastatin 40 mg PO BEDTIME buspirone 5 mg PO BID 30 days polyethylene glycol 3350 (Miralax) 17 grams PO DAILY HPI Comments Details: Mansoor returns for follow-up. Recently seen in consultation regarding coronary disease. He used to live with the [facility] but has moved here few years back. It seems that he underwent cardiac catheterization while [facility] for a heart attack around 2012. The actual details are not very clear. He has undergone a recent echocardiogram that was suggestive of and LAD territory infarction. EKGs also suggesting the same. Patient has not had any cardiology follow-up for many years. He gets some nonspecific chest pains at nighttime. Some shortness of breath with activity. Heart fluttering at different times. No history of any smoking, alcohol, drug use or diabetes. Recent blood pressure was on the higher side. He was not taking meds in the past but currently seems to be taking a few. [facility] Medical History Myocardial infarction involving left anterior descending (LAD) coronary artery Atherosclerotic cardiovascular disease High cholesterol Surgical History H/O hernia repair H/O cardiac catheterization Family History Sister Ovarian cancer Brother Throat cancer Father Stroke Social History Household Members Other:: nephew Housing: Apartment Alcohol intake: current Alcohol intake frequency: a few times a month Patient Tobacco Use Status: Never used Tobacco e-Cigarette/Vaping Use: Never Used service: No Cognitive needs: No Hearing needs: No Vision needs: Yes Review of Systems Const Denies chills, Denies fatigue, Denies fever(s), Denies weight gain and Denies weight loss ENT Denies dizziness Card Denies chest pain, Denies leg edema, Denies lightheadedness, Denies palpitations, Reports dyspnea on exertion, Denies orthopnea and Denies other Resp Denies cough and Reports dyspnea on exertion GI Denies hematochezia and Denies change in stool character Musc Denies abnormal gait, Denies muscle weakness, Denies numbness, Denies radiating pain into limb and Denies tingling Neuro Denies abnormal gait, Denies dizziness, Denies numbness and Denies tingling Endo Denies fatigue and Denies palpitations Physical Exam Vital Signs: Last Vital Signs Pulse 84 11/12/24 10:30 BP 124/76 11/12/24 10:30 BMI result Body Mass Index 28.5 Const General: comfortable and no acute distress Orientation/consciousness: patient oriented x3 HEENT Other: Unremarkable Head: Yes normal to inspection Neck Neck: Yes normal visual inspection Chest Chest palpation & inspection: normal inspection of the chest Resp Auscultation: clear to auscultation bilaterally Cardio Palpation: normal PMI Heart sounds: S1 normal heart sound present, S2 normal heart sound present, no gallops, no murmurs and no rubs GI Palpation (GI): Soft to palpation Back/Spine/Pelvis Other: unremarkable Skin General skin exam: no rashes or lesions noted Neuro General: patient oriented x3 Extrem General: Yes normal to inspection Psych Mental Status: mental status grossly normal Assessment & Plan Assessment & Plan (1) Atherosclerotic cardiovascular disease: Code(s): I25.10 - Atherosclerotic heart disease of [place] coronary artery without angina pectoris Category: Medical (2) Myocardial infarction involving left anterior descending (LAD) coronary artery: Code(s): I21.02 - ST elevation (STEMI) myocardial infarction involving left anterior descending coronary artery Category: Medical (3) Dyslipidemia: Code(s): E78.5 - Hyperlipidemia, unspecified Category: Medical (4) PVC (premature ventricular contraction): Code(s): I49.3 - Ventricular premature depolarization Category: Medical Plan Cardiac studies reviewed. Recent EKG shows sinus rhythm at 72/Min; old anterolateral infarction. In the recent echocardiogram, LVEF is 45-50%. Wall motion abnormality in the LAD territory. [place], apical anterior/apical septal areas are akinetic. No significant valve findings. Myocardial perfusion imaging study shows mostly infarct or myocardium in the LAD territory/no clear reversible ischemia. Overall, prior LAD territory infarction. Unknown PCI status/coronary anatomy. Nonexertional chest pains, shortness of breath with exertion, palpitations are his symptoms. Recommend diagnostic catheterization for further evaluation. Discussed with patient with hash slinger and he is agreeable. Continue aspirin, statins. With regard to palpitations, shows PVCs on Holter. [place] is about 8%. Probably start beta-blockers. He was not taking any medications at all in the past and just started the current meds and hence can add beta-blockers postprocedure. Discussed with family who came for appointment. Discussed using hash slinger. Orders: Orders Basic Metabolic Panel Today I21.02 - ST elevation (STEMI) myocardial infarction involving left anterior descending coronary artery Cardiac Cath LT w PCI Today I21.02 - ST elevation (STEMI) myocardial infarction involving left anterior descending coronary artery, I25.10 - Atherosclerotic heart disease of [place] coronary artery without angina pectoris Complete Blood Count no Diff Today I21.02 - ST elevation (STEMI) myocardial infarction involving left anterior descending coronary artery Prothrombin Time INR Today I21.02 - ST elevation (STEMI) myocardial infarction involving left anterior descending coronary artery, I25.10 - Atherosclerotic heart disease of [place] coronary artery without angina pectoris Coding Level of Care Code Est Pt Level 5 (06594) Complex EM visit Add On G2211 Diagnoses Atherosclerotic cardiovascular disease I25.10 Myocardial infarction involving left anterior descending (LAD) coronary artery I21.02 Dyslipidemia E78.5 PVC (premature ventricular contraction) I49.3
[2024-11-12 10:30] VITALS: BP 124/76; PULSE 84; BMI 28.5
== END 2024-11-12 11:03 | disposition home or self-care (01) ==
LOC: HO.HCS 10:24
PROVIDERS: PCP Nurse Practitioner Family; Visit Provider Internal Medicine
DX: I25.10 Atherosclerotic heart disease of native coronary artery without angina pectoris (principal); I21.02 ST elevation (STEMI) myocardial infarction involving left anterior descending coronary artery; E78.5 Hyperlipidemia, unspecified; I49.3 Ventricular premature depolarization
CPT/HCPCS: 99215; G2211

== ENCOUNTER → 2024-11-12 10:23 | Outpatient (BNVA) | payer OTHER, SELFPAY | PROVIDERS: PCP Nurse Practitioner Family; Visit Provider Internal Medicine | DX: I25.10 Atherosclerotic heart disease of native coronary artery without angina pectoris (principal); I21.02 ST elevation (STEMI) myocardial infarction involving left anterior descending coronary artery; I49.3 Ventricular premature depolarization; E78.5 Hyperlipidemia, unspecified | CPT/HCPCS: 99212 ==

== ENCOUNTER 2024-11-14 11:26 | Outpatient (REF) | payer OTHER, SELFPAY ==
[2024-11-14 11:56] LABS: Hemoglobin 15.5 g/dl (14.0-18.0); Mean Corpuscular HGB Conc 32.3 g/dl (31.0-36.0); Mean Corpuscular Hemoglobin 30.6 pg (27.0-33.0); Mean Corpuscular Volume 94.9 fL (80.0-98.0); Mean Platelet Volume 10.6 fL (9.4-12.4); Platelet Count 238 X10*3/uL (160-400); Red Blood Count 5.06 X10*6/uL (4.60-5.80); Red Cell Distribution Width 13.2 % (11.0-16.0); White Blood Count 5.3 X10*3/uL (4.8-10.8)
[2024-11-14 12:03] LABS: INTERNATIONAL NORM RATIO 1.1 (0.9-1.1); Prothrombin Time 12.9 SEC (10.9-12.4)
[2024-11-14 12:26] LABS: Anion Gap 11 (12-20); Blood Urea Nitrogen 9 mg/dL (9-16); Calcium 9.8 mg/dL (8.4-10.2); Carbon Dioxide 30 mmol/L (22-29); Chloride 104 mmol/L (96-108); Estimated Glomerular Filt Rate > 60; Glucose Random 77 mg/dL (60-115); Potassium 4.2 mmol/L (3.3-5.1); Sodium 141 mmol/L (135-145)
== END 2024-11-14 11:27 | disposition home or self-care (01) ==
LOC: HO.LAB 11:26
PROVIDERS: PCP Nurse Practitioner Family; Visit Provider Internal Medicine
DX: I21.02 ST elevation (STEMI) myocardial infarction involving left anterior descending coronary artery (principal); I25.10 Atherosclerotic heart disease of native coronary artery without angina pectoris
CPT/HCPCS: 36415; 80048; 85027; 85610

== ENCOUNTER → 2024-12-16 23:59 | Outpatient (BNV) | payer OTHER, SELFPAY | PROVIDERS: PCP Nurse Practitioner Family; Visit Provider Internal Medicine Cardiovascular Disease | DX: I50.30 Unspecified diastolic (congestive) heart failure (principal); R93.1 Abnormal findings on diagnostic imaging of heart and coronary circulation | CPT/HCPCS: 93458; 99152 ==

== ENCOUNTER 2024-12-31 10:31 | Outpatient (AMB) | payer OTHER, SELFPAY ==
--- NOTE | 2024-12-31 10:37 | A.OFFPC_ITS ---
Vital Signs 12/31/24 10:46 Height 5 ft 6 in Weight 173 lb BMI 27.9 BP 130/78 Blood Pressure Location Rt brachial Position Sitting Respiration 18 Pulse 77 Pulse Source Pulse Oximeter Temp 98.6 F Temp Source Oral Pulse Oximetry (%) 98 Oxygen Delivery Method Room Air Intake Visit Reasons: 3m follow up Intake Note: Pt is here today for 3 months follow up visit. Camper Assembler Required: No Camper Assembler Name: patient declined Allergies No Known Allergies [No Known Allergies*] Allergy (Verified 12/31/24 10:47) Tobacco use date assessed: 12/31/24 Dental Screening Dental Screen Date: 09/23/24 HPI 3m follow up HPI Details Chief Complaint The patient presents for follow-up due to intermittent shortness of breath and chest discomfort. History of Present Illness The patient is a 54-year-old male presenting with a follow-up appointment to address cardiac concerns related to intermittent dyspnea and chest discomfort. He has a known history of coronary artery disease and is currently managed by a sulfur burner at [facility]. He is due for a cardiac catheterization soon, which will be conducted by a base-date sulfur burner. The patient's dyspnea occurs intermittently and is sometimes unrelated to exertion, though exertion tends to exacerbate his chest discomfort. There is an indication of anxiety contributing to these symptoms. During today's examination, mild dyspnea was observed, and an EKG is being conducted to assess his cardiac condition further. Family members have mentioned the possibility of valve replacement, pending further evaluation from the cardiac catheterization. Social History - Not discussed in the conversation. Health Maintenance - Not discussed in the conversation. Review of Systems - Cardiovascular: Reports intermittent d yspnea and chest discomfort, particularly on exertion. denies any fevers, chills, N/V reports anxiety without si or hi Physical Exam General: Cooperative, healthy appearing, comfortable, no acute distress and well developed Orientation: Patient oriented x3 Limitations: No limitations Head: Normal to inspection Ears: Hearing grossly normal bilaterally Nose: Normal external nose present Face and sinus: Normal facial exam Eyes: Appearance normal, both eyes and all related structures Neck: Normal visual inspection and Yes full ROM Respiratory: Normal respiratory effort and able to speak in complete sentences. Clear to auscultation bilaterally. Cardiovascular: Regular rate and rhythm. Normal S1 and S2. GI: Normal to inspection. Soft to palpation and nontender Skin: No rashes or lesions noted Neuro: Patient oriented x3 Extremities: Normal to inspection Results - Tests: Electrocardiogram (EKG) is curr ently being performed. old infarct with frequent PVCs noted. following up with [facility] cardio today, plan for cardiac cath Plan The patient's coronary artery disease is being managed with a statin and ASA. A cardiac catheterization is scheduled to further evaluate his coronary arteries and assess the potential need for valve replacement???. Anxiety is suspected to be influencing his symptoms, and ongoing monitoring of his mental health is recommended. Follow-up documentation from the cardiac catheterization will guide further treatment adjustments. Discussion Notes The upcoming cardiac catheterization was explained as a crucial step to assess the necessity of interventions, such as valve replacement. We reviewed the possibility of anxiety playing a role in his symptoms and the importance of monitoring this aspect alongside his cardiac care. The patient was informed that documentation from the catheterization will guide any further treatment decisions, an encouraged continuous monitoring by the cardiac team. Patient Instructions - Continue taking medications as prescri bed. - Follow up with the sulfur burner for th e scheduled cardiac catheterization. - Monitor for any increase in symptoms a nd seek care if symptoms worsen. - Report any new or worsening symptoms p romptly. -increasing buspirone from 5mg bid to 10 mg bid PFSH Medical History Myocardial infarction involving left anterior descending (LAD) coronary artery Atherosclerotic cardiovascular disease High cholesterol Surgical History H/O hernia repair H/O cardiac catheterization Family History Sister Ovarian cancer Brother Throat cancer Father Stroke Social History Household Members Other:: nephew Housing: Apartment Alcohol intake: current Alcohol intake frequency: a few times a month Patient Tobacco Use Status: Never used Tobacco e-Cigarette/Vaping Use: Never Used service: No Cognitive needs: No Hearing needs: No Vision needs: Yes Questionnaire Thrive Questionnaire Date Thrive assessed: 12/31/24 I am a: Patient What is your living situation today?: I have a steady place to live Within the past 12 months, did the food you bought not last and you didn't have the money to get more?: Never true Within the past 12 months, did you worry whether your food would run out before you got money to buy more?: Never true Do you have trouble paying for medicines?: No Do you have trouble getting transportation to medical appointments?: No Do you have trouble paying your heating and electricity bill?: No Do you have trouble taking care of your child, family member or friend?: No Do you have trouble with day-to-day activities such as bathing, preparing meals, shopping, managing finances, etc.?: No Are you currently unemployed and looking for a job?: No Are you interested in more education?: I choose not to answer this question Please select the resources that you would like help with: None Currently or been in a relationship where the following occur: No concerns reported THRIVE Score: 0 ZANE-7 AMB Questionnaire ZANE-7 Date ZANE - 7 assessed: 09/23/24 Source: Developed by Drs. Jeremy Qureshi, Sun Wyman, Gus Mitchell and colleagues, with an educational mark from [employer]. Physical exam (Primary Care) Vital Signs: Last Vital Signs Temp 98.6 F 12/31/24 10:46 Pulse 77 12/31/24 10:46 Resp 18 12/31/24 10:46 BP 130/78 12/31/24 10:46 Pulse Ox 98 12/31/24 10:46 Oxygen Delivery Method Room Air 12/31/24 10:46 BMI result Body Mass Index 27.9 Tobacco/Smoking Status: Tobacco use Status Tobacco use date assessed 12/31/24 12/31/24 10:50 Patient Tobacco Use Status Never used Tobacco 12/31/24 10:38 e-Cigarette/Vaping Use Never Used 12/31/24 10:38 Thrive Assessment: Date of Thrive Assessment Date Thrive assessed 12/31/24 12/31/24 10:52 Currently or been in a relationship where the following occur: No concerns reported Coding Level of Care Code Est Pt Level 4 (25167) Diagnoses Atherosclerotic cardiovascular disease I25.10 Myocardial infarct I21.9 PVC (premature ventricular contraction) I49.3 Anxiety F41.9 Dyslipidemia E78.5 Assessment & Plan Assessment & Plan (1) Atherosclerotic cardiovascular disease: Code(s): I25.10 - Atherosclerotic heart disease of [place] coronary artery without angina pectoris Category: Medical (2) Myocardial infarct: Comment: HX of approx 10 years ago Code(s): I21.9 - Acute myocardial infarction, unspecified Category: Medical (3) PVC (premature ventricular contraction): Code(s): I49.3 - Ventricular premature depolarization Category: Medical (4) Anxiety: Code(s): F41.9 - Anxiety disorder, unspecified Category: Medical (5) Dyslipidemia: Code(s): E78.5 - Hyperlipidemia, unspecified Category: Medical Plan . Orders: Orders Comprehensive [place]. Panel Fast Today E78.5 - Hyperlipidemia, unspecified, F41.9 - Anxiety disorder, unspecified, I21.9 - Acute myocardial infarction, unspecified, I25.10 - Atherosclerotic heart disease of [place] coronary artery without angina pectoris, I49.3 - Ventricular premature depolarization Complete Blood Count Auto Diff Today E78.5 - Hyperlipidemia, unspecified, F41.9 - Anxiety disorder, unspecified, I21.9 - Acute myocardial infarction, unspecified, I25.10 - Atherosclerotic heart disease of [place] coronary artery without angina pectoris, I49.3 - Ventricular premature depolarization TSH reflex Free T4 Today E78.5 - Hyperlipidemia, unspecified, F41.9 - Anxiety disorder, unspecified, I21.9 - Acute myocardial infarction, unspecified, I25.10 - Atherosclerotic heart disease of [place] coronary artery without angina pectoris, I49.3 - Ventricular premature depolarization UA CC w/rflx Micro + Cult Today E78.5 - Hyperlipidemia, unspecified, F41.9 - Anxiety disorder, unspecified, I21.9 - Acute myocardial infarction, unspecified, I25.10 - Atherosclerotic heart disease of [place] coronary artery without angina pectoris, I49.3 - Ventricular premature depolarization Lipid Panel Today E78.5 - Hyperlipidemia, unspecified, F41.9 - Anxiety disorder, unspecified, I21.9 - Acute myocardial infarction, unspecified, I25.10 - Atherosclerotic heart disease of [place] coronary artery without angina pectoris, I49.3 - Ventricular premature depolarization Medications: Changed From buspirone 5 mg PO BID 30 days 60 tabs 3RF To buspirone 10 mg PO BID 30 days 60 tabs 3RF
[2024-12-31 10:46] VITALS: BP 130/78; PULSE 77; RESP 18; TEMP 37; O2SAT 98; BMI 27.9
== END 2024-12-31 11:53 | disposition home or self-care (01) ==
LOC: HO.HMCC 10:32
PROVIDERS: PCP Nurse Practitioner Family; Visit Provider Nurse Practitioner Family
DX: I25.10 Atherosclerotic heart disease of native coronary artery without angina pectoris (principal); I25.2 Old myocardial infarction; I49.3 Ventricular premature depolarization; F41.9 Anxiety disorder, unspecified; E78.5 Hyperlipidemia, unspecified

== ENCOUNTER → 2024-12-31 10:31 | Outpatient (BNVA) | payer OTHER, SELFPAY | PROVIDERS: PCP Nurse Practitioner Family; Visit Provider Nurse Practitioner Family | DX: I25.10 Atherosclerotic heart disease of native coronary artery without angina pectoris (principal); I49.3 Ventricular premature depolarization; F41.9 Anxiety disorder, unspecified; E78.5 Hyperlipidemia, unspecified; I25.2 Old myocardial infarction | CPT/HCPCS: 99212 ==

== ENCOUNTER 2025-01-13 10:39 | Outpatient (REF) | payer OTHER, SELFPAY ==
[2025-01-13 14:08] LABS: Influenza A PCR NEGATIVE (Negative); Influenza B PCR NEGATIVE (Negative); Resp Syncy Virus RNA Qual PCR NEGATIVE (Negative); SARS COV2 PCR INHOUSE NEGATIVE (Negative)
== END 2025-01-13 10:40 | disposition home or self-care (01) ==
LOC: HO.LNP 10:39
PROVIDERS: PCP Nurse Practitioner Family; Visit Provider Physician Assistant Medical
DX: R09.89 Other specified symptoms and signs involving the circulatory and respiratory systems (principal); J06.9 Acute upper respiratory infection, unspecified
CPT/HCPCS: 0241U; 99212

== ENCOUNTER 2025-01-13 10:39 | Outpatient (AMB) | payer OTHER, SELFPAY ==
--- NOTE | 2025-01-13 10:45 | AM.OFFWIN_ITS ---
Intake Vital Signs 01/13/25 10:47 Weight 176 lb BP 110/72 Blood Pressure Location Lt brachial Position Sitting Pulse 103 H Pulse Source Pulse Oximeter Temp 98.2 F Temp Source Oral Pulse Oximetry (%) 98 Oxygen Delivery Method Room Air Intake Visit Reasons: EP Cough, diarrhea, fever Intake Note: Patient here for dry cough, diarrhea, fever that started last week. Patient Tobacco Use Status: Never used Tobacco Allergies No Known Allergies [No Known Allergies*] Allergy (Verified 01/13/25 10:48) Do you need a note to return to daycare/school/sports/work: No HPI HPI Comments History of Present Illness Details History of Present Illness - The patient is a 54-year-old [place] s peaking male presenting with his niece and mother helper for symptoms related to a respiratory infection and concern for upcoming surgery. - A dry cough began over a week ago and has now evolved into a productive cough with phlegm. - On the previous Sunday, the patient ex perienced intense diarrhea for an entire day. - Additional symptoms include mild sore throat due to coughing, fever, and shortness of breath. - The patient has been using natural rem edies such as lemon and onion and an OTC cough syrup for symptom relief. - There is no reported history of asthma or ear pain. - There is an upcoming open-heart surger y on the , which adds urgency to resolving the present symptoms. - He has no sick contacts or travel. - He denies fever, chills, CP, SOB, abd pain, n/v/d. Physical Exam General: Cooperative, healthy appearing, comfortable, no acute distress and well developed Head: Normal to inspection Ears: Hearing grossly normal bilaterally. TM's normal bilaterally. Nose: Normal external nose present Face and sinus: Normal facial exam. No sinus tenderness noted. Eyes: Appearance normal, both eyes and all related structures Neck: Normal visual inspection and Yes full ROM. No lymphadenopathy noted. Respiratory: Normal respiratory effort and able to speak in complete sentences. Clear to auscultation bilaterally Cardiovascular: Regular rate and rhythm. Normal S1 and S2 GI: Normal to inspection. Soft to palpation and nontender. No guarding noted. Skin: No rashes or lesions noted Patient was informed and verbally consented to the use of an ambient scribe for clinic note documentation during this visit. [facility], [facility] Medical History Myocardial infarction involving left anterior descending (LAD) coronary artery Atherosclerotic cardiovascular disease High cholesterol Surgical History H/O hernia repair H/O cardiac catheterization Family History Sister Ovarian cancer Brother Throat cancer Father Stroke Social History Household Members Other:: nephew Housing: Apartment Alcohol intake: current Alcohol intake frequency: a few times a month Patient Tobacco Use Status: Never used Tobacco e-Cigarette/Vaping Use: Never Used service: No Cognitive needs: No Hearing needs: No Vision needs: Yes Review of Systems Const All systems reviewed & are unremarkable except as noted in HPI and below Physical Exam Vital Signs: Last Vital Signs Temp 98.2 F 01/13/25 10:47 Pulse 103 H 01/13/25 10:47 BP 110/72 01/13/25 10:47 Pulse Ox 98 01/13/25 10:47 Oxygen Delivery Method Room Air 01/13/25 10:47 Assessment & Plan Assessment & Plan (1) URI with cough and congestion: Code(s): J06.9 - Acute upper respiratory infection, unspecified Plan Most likely URI vs bronchitis vs CAP, viral illness vs covid vs flu Plan - Antibiotics prescribed to treat the respiratory infection, especially considering the upcoming heart surgery. - Cough medicine provided to manage productive cough symptoms. - Inhaler prescribed to assist with shortness of breath. - COVID-19 and influenza testing ordered to rule out viral infections that may affect surgical readiness. - Recommended contact with the surgeon for potential impact on surgery date due to illness. - Follow-up with test results to ensure comprehensive management in preparation for the surgery. Orders: Orders SARS-CoV2/FLU/RSV Today R09.89 - Other specified symptoms and signs involving the circulatory and respiratory systems Medications: New azithromycin For 250 mg dose pack: take 500 mg today (day 1), then 250 mg for 4 days (days 2-5) PO 6 tabs 0RF benzonatate 100 mg PO bid-tid 7 days PRN 21 caps 0RF Cough albuterol sulfate 90 mcg/actuation 2 puffs inhalation Q6H 7 days 8.5 grams 0RF shortness of breath or wheezing or cough Coding Level of Care Code Est Pt Level 3 (35308) Diagnoses URI with cough and congestion J06.9
[2025-01-13 10:47] VITALS: BP 110/72; PULSE 103; TEMP 36.8; O2SAT 98
== END 2025-01-13 11:19 | disposition home or self-care (01) ==
PROVIDERS: PCP Nurse Practitioner Family; Visit Provider Physician Assistant Medical
DX: J06.9 Acute upper respiratory infection, unspecified (principal)

== ENCOUNTER 2025-01-29 12:54 | Outpatient (AMB) | payer OTHER, SELFPAY ==
--- NOTE | 2025-01-29 13:07 | MHC.OFFVIS ---
Vital Signs 01/29/25 13:08 Height 5 ft 6 in Weight 160 lb 14.999 oz BMI 26.0 BP 124/66 Blood Pressure Location Lt brachial Position Sitting Pulse 72 Pulse Source Monitor Intake Visit Reasons: follow up s/p Cath Lamina Searcher Required: Yes Lamina Searcher Name: MENDY [id number] Accompanied by: Nephew or Niece Allergies No Known Allergies (No Known Allergies*) Allergy (Verified 01/13/25 10:48) Medication List - Last Reconciled 01/29/25 by Andrew Iqbal MD albuterol sulfate 90 mcg/actuation 2 puffs inhalation Q6H 7 days amlodipine 2.5 mg PO DAILY aspirin (Adult Aspirin Regimen) 81 mg PO DAILY atorvastatin 40 mg PO BEDTIME buspirone 10 mg PO BID 30 days HPI Comments Details: Mansoor returns for follow-up. Recently seen in consultation regarding coronary disease. He used to live with the [facility] but has moved here few years back. It seems that he underwent cardiac catheterization while [facility] for a heart attack around 2012. The actual details are not very clear. During prior visits, he has described nonspecific chest pains at nighttime and some shortness of breath with activity as well as heart fluttering symptoms. He has had alcohol excess in the past but not recently. Also previous noncompliance but currently taking all his medications. He has undergone cardiac catheterization and awaiting bypass surgery. His surgery was supposed to be as today but apparently he was having hemorrhoidal bleed and because of that is surgery has been canceled. From the cardiac standpoint, he states he does feel like choking sometimes but otherwise fine. He denies any clear-cut exertional angina and symptoms are somewhat vague. [facility] Medical History Myocardial infarction involving left anterior descending (LAD) coronary artery Atherosclerotic cardiovascular disease High cholesterol Surgical History H/O hernia repair H/O cardiac catheterization Family History Sister Ovarian cancer Brother Throat cancer Father Stroke Social History Household Members Other:: nephew Housing: Apartment Alcohol intake: current Alcohol intake frequency: a few times a month Patient Tobacco Use Status: Never used Tobacco e-Cigarette/Vaping Use: Never Used service: No Cognitive needs: No Hearing needs: No Vision needs: Yes Review of Systems Const Denies weakness ENT Denies dizziness Card Denies chest pain, Denies chest pain with activity, Denies syncope, Denies rapid heart rate, Denies pedal edema, Denies edema, Denies leg edema, Denies lightheadedness, Denies palpitations, Reports dyspnea, Denies dyspnea on exertion and Denies orthopnea Resp Denies cough, Reports dyspnea and Denies dyspnea on exertion GI Denies hematochezia and Denies change in stool character Musc Denies abnormal gait, Denies muscle cramps, Denies muscle weakness, Denies numbness, Denies radiating pain into limb and Denies tingling Neuro Denies abnormal gait, Denies dizziness, Denies syncope, Denies numbness, Denies tingling and Denies weakness Endo Denies palpitations Physical Exam Vital Signs: Last Vital Signs Pulse 72 01/29/25 13:08 BP 124/66 01/29/25 13:08 BMI result Body Mass Index 26.0 Const General: comfortable and no acute distress Orientation/consciousness: patient oriented x3 HEENT Other: Unremarkable Head: Yes normal to inspection Neck Neck: Yes normal visual inspection Chest Chest palpation & inspection: normal inspection of the chest Resp Auscultation: clear to auscultation bilaterally Cardio Palpation: normal PMI Heart sounds: S1 normal heart sound present, S2 normal heart sound present, no gallops, no murmurs and no rubs GI Palpation (GI): Soft to palpation Back/Spine/Pelvis Other: unremarkable Skin General skin exam: no rashes or lesions noted Neuro General: patient oriented x3 Extrem General: Yes normal to inspection Psych Mental Status: mental status grossly normal Assessment & Plan Assessment & Plan (1) Atherosclerotic cardiovascular disease: Code(s): I25.10 - Atherosclerotic heart disease of tribe coronary artery without angina pectoris Category: Medical (2) Myocardial infarction involving left anterior descending (LAD) coronary artery: Code(s): I21.02 - ST elevation (STEMI) myocardial infarction involving left anterior descending coronary artery Category: Medical (3) Dyslipidemia: Code(s): E78.5 - Hyperlipidemia, unspecified Category: Medical (4) PVC (premature ventricular contraction): Code(s): I49.3 - Ventricular premature depolarization Category: Medical Plan Cardiac studies reviewed. Recent EKG shows sinus rhythm at 72/Min; old anterolateral infarction. In the recent echocardiogram, LVEF is 45-50%. Wall motion abnormality in the LAD territory. [place], apical anterior/apical septal areas are akinetic. No significant valve findings. Myocardial perfusion imaging study shows mostly infarct or myocardium in the LAD territory/no clear reversible ischemia. In the diagnostic catheterization, normal left main, proximal LAD stent is patent. Mid to distal LAD with severe stenosis. Severe circumflex disease involving mid circumflex/bifurcation with OM1, 2 and 3. Overall, significant coronary disease requiring bypass surgery. Apparently, it was supposed to be done yesterday but because of hemorrhoidal bleeding it was canceled. Reviewed this with him and he actually showed me a picture of the blood in the toilet. Message sent to Dr. Martel, his whiteprinting machine operator about this. We will need GI recommendation before proceeding with cardiac surgery. Otherwise, for medications, he can remain on aspirin and statins. He can start low-dose beta-blockers. Apparently, has taken Coreg in the past but not in the last few months. He is on a small dose of amlodipine for blood pressure. With regard to palpitations, PVCs on Holter with an 8% burden. Beta-blockers as above should help. Discussed with family who came for appointment. spanish interpreter was used. Contacted Dr. Waite as well as . Discussion Notes I discussed the rectal bleeding with the patient and its potential impact on the scheduled heart surgery. I contacted the cardiac surgeon as well as the whiteprinting machine operator regarding this. The patient was informed about the importance of continuing prescribed medications and starting a new medication, metoprolol. Patient was informed and verbally consented to the use of an ambient scribe for clinic note documentation during this visit. Medications: New metoprolol succinate ER (Toprol XL) 25 mg PO DAILY 90 tabs 3RF Patient Instructions: - Continue taking all prescribed medications daily. - Attend the gastroenterology appointment. - Follow up with the cardiac surgeon. - Report any increase in rectal bleeding or new cardiac symptoms immediately. Coding Level of Care Code Est Pt Level 4 (75067) Complex EM visit Add On G2211 Diagnoses Atherosclerotic cardiovascular disease I25.10 Myocardial infarction involving left anterior descending (LAD) coronary artery I21.02 Dyslipidemia E78.5 PVC (premature ventricular contraction) I49.3
[2025-01-29 13:08] VITALS: BP 124/66; PULSE 72; BMI 26.0
== END 2025-01-29 13:41 | disposition home or self-care (01) ==
LOC: HO.HCS 12:54
PROVIDERS: PCP Nurse Practitioner Family; Visit Provider Internal Medicine
DX: I25.10 Atherosclerotic heart disease of native coronary artery without angina pectoris (principal); I21.02 ST elevation (STEMI) myocardial infarction involving left anterior descending coronary artery; E78.5 Hyperlipidemia, unspecified; I49.3 Ventricular premature depolarization
CPT/HCPCS: 99214; G2211

== ENCOUNTER → 2025-01-29 12:54 | Outpatient (BNVA) | payer OTHER, SELFPAY | PROVIDERS: PCP Nurse Practitioner Family; Visit Provider Internal Medicine | DX: I25.10 Atherosclerotic heart disease of native coronary artery without angina pectoris (principal); E78.5 Hyperlipidemia, unspecified; I49.3 Ventricular premature depolarization | CPT/HCPCS: 99212 ==

== ENCOUNTER 2025-02-03 19:19 | Emergency (ER) | payer OTHER, SELFPAY ==
[2025-02-03 19:23] VITALS: BP 113/75; PULSE 87; RESP 20; TEMP 36.1; O2SAT 98; BMI 26.5
[2025-02-03 19:31] VITALS: BP 139/70; PULSE 76; RESP 25; O2SAT 96
--- NOTE | 2025-02-03 19:42 | ED.ALLEREA ---
HPI - Allergic Reaction General Chief complaint: Allergic Reaction Stated complaint: allergic reaction/little sob Time Seen by Provider: 02/03/25 19:29 Source: patient and family Mode of arrival: ambulatory Limitations: language barrier (Manager [facility] used) History of Present Illness ED Provider: Richard GO HPI narrative: The patient is a 54-year-old male presenting to the ED for evaluation of lip and face swelling after drinking a food/pineapple juice cocktail around 16:00 in an attempt to relieve constipation. The patient denies any known allergies, denies use of JAKI inhibitors. The patient reports he was drinking the juice drink for the 1st time, in an attempt to relieve constipation, patient reports a history of CAD with triple-vessel pathology for which he was scheduled to undergo open heart surgery on January 28 however the surgery was canceled due to the patient suffering from bleeding hemorrhoids. Upon arrival to the ED patient reports shortness of breath described as heaviness, but denies active chest pain. Related Data Previous Rx's ?Medication ?Instructions ?Recorded atorvastatin 40 mg tablet 40 mg PO BEDTIME #90 tabs 12/18/24 amlodipine 2.5 mg tablet 2.5 mg PO DAILY #90 tabs 12/20/24 aspirin 81 mg tablet,delayed 81 mg PO DAILY #90 tabs 12/20/24 release (Adult Aspirin Regimen) buspirone 10 mg tablet 10 mg PO BID 30 days #60 tabs 12/31/24 albuterol sulfate 90 mcg/actuation 2 puff inhalation Q6H shortness of 01/13/25 aerosol inhaler breath or wheezing or cough 7 days #8.5 grams metoprolol succinate 25 mg 25 mg PO DAILY #90 tabs 01/29/25 tablet,extended release 24 hr (Toprol XL) famotidine 20 mg tablet (Pepcid) 20 mg PO BID 5 days #10 tabs 02/03/25 prednisone 20 mg tablet 60 mg (3 x 20 mg) PO DAILY 5 days 02/03/25 #15 tabs Allergies Allergy/AdvReac Type Severity Reaction Status Date / Time No Known Allergies (No Known Allergy Verified 02/03/25 19:30 Allergies*) Review of Systems Review of Systems: Yes all other systems are reviewed and are negative PMFSH Past Medical History Medical History Myocardial infarction involving left anterior descending (LAD) coronary artery Atherosclerotic cardiovascular disease High cholesterol Surgical History (Reviewed 12/31/24 @ 11:26 by Rod Parker [facility]) H/O hernia repair H/O cardiac catheterization Family History Family History Sister Ovarian cancer Brother Throat cancer Father Stroke Social History Social History Household Members Other:: nephew Housing: Apartment Alcohol intake: current Alcohol intake frequency: a few times a month Patient Tobacco Use Status: Never used Tobacco e-Cigarette/Vaping Use: Never Used Advance Directives: No Advance Directives Information Provided: No Do you have a plan to hurt others: No Plan service: No Cognitive needs: No Hearing needs: No Vision needs: Yes Physical Exam ED Vital Signs: Vital Signs - 24 hr 02/03/25 19:23 02/03/25 19:31 02/03/25 22:48 Temperature 97.0 F 98.6 F Pulse Rate 87 76 79 Respiratory Rate 20 25 H 18 Blood Pressure 113/75 139/70 117/78 Pulse Oximetry 98 96 99 Oxygen Delivery Method Room Air Room Air Room Air BMI result Body Mass Index 26.5 CONSTITUTIONAL: The patient appears non-toxic, well nourished and in no acute distress. Vital signs as documented. HEAD: Atraumatic, normocephalic. EYES: EOMs grossly intact, pupils equal, conjunctiva clear, no exudate. ENT: Nares patent, no discharge. There is [id number] swelling noted of the upper and lower lips and eyelids without associated tongue or posterior pharyngeal swelling, posterior pharynx reveals a midline and nonedematous uvula, no tonsillar or peritonsillar swelling, no tonsillar exudate. Airway patent, no visible pooling secretions, no audible stridor, visible mucosa is pink and moist without noted lesions. NECK: Trachea is midline, no obvious masses or gross abnormalities. CHEST: Symmetric movement, normal appearance. LUNGS: LS present and CTAB, no w/r/r. Increased respiratory rate but otherwise non-labored work of breathing. CARDIAC: Regular Rhythm, S1/S2 appreciated, no murmurs, rubs or gallops. ABDOMEN: Abdomen soft and non-tender x4 quadrants, no palpable masses or organomegaly. : Deferred. EXTREMITIES: Normal tone, moves all extremities spontaneously without reported pain. No obvious acute injury or deformity noted. NEURO: Alert and oriented x3, CN II-XII appear grossly intact. Cerebellar Functioning grossly intact. No obvious sensory or motor deficits. Speech clear and appropriate. PSYCH: normal affect, appropriate eye contact, fluid speech, with appropriate response to questioning. No reported suicidality or homicidality. SKIN: Warm, dry, color appropriate, normal turgor. No rashes noted. Medications Administered Discontinued Medications Generic Name Dose Route Start Last Admin Trade Name Freq PRN Reason Stop Dose Admin Diphenhydramine HCl 50 mg 02/03/25 19:30 02/03/25 19:33 Diphenhydramine Hcl 50 Mg/Ml Vial IVPUSH 02/03/25 19:31 50 mg ONCE ONE Administration Famotidine 20 mg 02/03/25 19:30 02/03/25 19:33 Famotidine/Pf 20 Mg/2 Ml Vial IVPUSH 02/03/25 19:31 20 mg ONCE ONE Administration Methylprednisolone Sodium Succinate 125 mg 02/03/25 19:30 02/03/25 19:33 Methylprednisolone Sod Succ 125 Mg/2 Ml Vial IVPUSH 02/03/25 19:31 125 mg ONCE ONE Administration Medical Decision Making Medical Decision Making [facility] Narrative: 7:339 PM 02/03/2025 (Libertad GO): The patient is a 54-year-old male presenting to the ED for evaluation of lip and face swelling after drinking a food/pineapple juice cocktail around 16:00 in an attempt to relieve constipation. The patient denies any known allergies, denies use of JAKI inhibitors. The patient presented to the ED with obvious facial swelling and shortness of breath, received Solu-Medrol, Benadryl, and Pepcid immediately upon arrival. Upon further interview patient advised he also was given 2 tabs of an allergy medication at home by his daughter prior to coming to the ED, patient could not recall the name of the medication. The patient's daughter arrived and requested a picture of the medication from another family member at home, the medication was confirmed to be oral Benadryl. Of note the patient reports he was drinking the string for the 1st time, in an attempt to relieve constipation, patient reports a history of CAD with triple-vessel pathology for which he was scheduled to undergo open heart surgery on January 28 however the surgery was canceled due to the patient is suffering from bleeding hemorrhoids. Upon arrival to the ED patient reports shortness of breath described as heaviness, but denies active chest pain. 8:38 PM 02/03/2025 (Libertad GO): Patient reports his swelling and respirations are improving, however patient is now reporting chest pain without associated diaphoresis, nausea, or lightheadedness. Given the patient's cardiac history we will obtain EKG and troponins in addition to basic laboratory evaluation. 9:03 PM 02/03/2025 (Libertad GO): EKG performed at 20:50 hours shows sinus rhythm with a rate of 83 with a single PVC, QTC 415. T-wave inversion noted in lead I and aVL, no other evidence of acute ischemia however PVC limits interpretation of V1 through V3, we will obtain repeat EKG for reassessment. 11:19 PM 02/03/2025 (Libertad GO): The patient has been reassessed, swelling has fully resolved and patient reports resolution of his throat and respiratory symptoms. The patient's initial troponin was negative, at this time we will repeat troponin and if unremarkable patient will be discharged home with course of prednisone and Pepcid for his allergic reaction. Patient has been advised he will need follow up with his PCP and courier driver regarding his ongoing cardiac pathology. 11:55 PM 02/03/2025 (Libertad GO): The patient's repeat troponin is negative/unchanged. Patient continues to feel well with no recurrence of allergic reaction symptoms. The patient will be discharged with Pepcid and prednisone. Differential Diagnosis Allergic reaction, ACS, angioedema, Admission/Observation Consideration of admission/observation: Escalation of care including admission/observation considered Lab Data MDM Lab Attestation statement: I reviewed the patient's lab results. 02/03/25 21:06 02/03/25 21:06 Labs: Lab Results 02/03/25 02/03/25 Range/Units 21:06 23:20 WBC 11.1 H (4.8-10.8) X10*3/uL RBC 5.64 (4.60-5.80) X10*6/uL Hgb 16.7 (14.0-18.0) g/dl Hct 50.5 (42.0-52.0) % MCV 89.5 (80.0-98.0) fL MCH 29.6 (27.0-33.0) pg MCHC 33.1 (31.0-36.0) g/dl RDW 13.3 (11.0-16.0) % Plt Count 248 (160-400) X10*3/uL MPV 10.0 (9.4-12.4) fL Immature Gran % (Auto) 0.4 (0.0-0.4) % Neut % (Auto) 87.9 H (45-73) % Lymph % (Auto) 8.3 L (20-40) % Stokes % (Auto) 3.0 (2-11) % Eos % (Auto) 0.2 (0-4) % Baso % (Auto) 0.2 (0-2) % Lymph # (Auto) 0.9 L (1.2-4.9) X10*3/uL Stokes # (Auto) 0.3 (0.1-1.2) X10*3/uL Eos # (Auto) 0.0 (0.0-0.4) X10*3/uL Baso # (Auto) 0.0 (0.0-0.2) X10*3/uL Abs Immat Gran (auto) 0.04 H (0.00-0.03) X10*3/uL Absolute Neuts (auto) 9.7 H (2.0-8.3) x10*3/uL Absolute Nucleated RBC 0.000 (0.0-0.012) X10*3/uL Nucleated RBC % (auto) 0.0 (0.0-0.2) /100WBC Sodium 140 (135-145) mmol/L Potassium 4.3 (3.3-5.1) mmol/L Chloride 105 (96-108) mmol/L Carbon Dioxide 29 (22-29) mmol/L Anion Gap 10 L (12-20) BUN 13 (9-16) mg/dL Creatinine 1.06 (0.5-1.4) mg/dL Estim Creat Clear Calc 71.0 Estimated GFR > 60 Random Glucose 101 (60-115) mg/dL Calcium 9.8 (8.4-10.2) mg/dL Total Bilirubin 0.3 (0.0-1.0) mg/dL AST 25 (5-37) U/L ALT 22 (0-40) U/L Alkaline Phosphatase 84 (39-117) U/L Troponin I High Sens 12.7 12.9 (<3.5-35.0) ng/L Total Protein 7.5 (6.5-8.0) g/dL Albumin 4.6 (3.5-5.0) g/dL Independent Interpretation I performed an independent interpretation of an: EKG Interpretation: Repeat EKG at 21:49 hours shows sinus rhythm with a rate of 81, T-wave inversion again noted in lead I and aVL, no associated reciprocal changes, no PVC noted, no other ectopy. QTC 408, compared to previous at 20:50 hours PVCs have resolved, no other acute morphology changes. Discharge Plan Discharge Clinical Impression: Allergic reaction Patient Disposition: Home, Self-Care Instructions: General Allergic Reaction (ED) Additional Instructions: Thank you for choosing [facility]'s Emergency Department for your care today. Your symptoms today were consistent with an allergic reaction. Thankfully your symptoms improved following administration of steroids, Pepcid, and Benadryl. Due to your chest discomfort during your allergic reaction we also checked your EKG and cardiac enzymes which showed no evidence of damage to your heart. Seeing as your symptoms have improved and your workup is reassuring there is currently no indication for admission to the hospital or continued ED observation, and it is safe to discharge you home. Please take prednisone and Pepcid as prescribed for the next 5 days until finished. Please stay well hydrated and get plenty of rest. Please follow up with your courier driver for your ongoing cardiac disease management. Please also follow-up with your primary care physician for re-evaluation, additional management of your symptoms, and continued preventative care. If you do not have a primary care physician, please call the [facility] at [phone] to establish a new primary care physician. While waiting to establish your new primary care physician, you can call our Walk-in [facility] at [phone] for non-emergency needs. Please return to the emergency department if you develop a severe or sudden change in your symptoms, a fever over 100.4 that does not improve with Tylenol or Ibuprofen, recurrent vomiting, or any other new or worsening symptoms or concerns. Prescriptions: New prednisone 20 mg tablet 60 mg PO DAILY 5 Days Qty: 15 0RF famotidine [Pepcid] 20 mg tablet 20 mg PO BID 5 Days Qty: 10 0RF No Action atorvastatin 40 mg tablet 40 mg PO BEDTIME Qty: 90 0RF amlodipine 2.5 mg tablet 2.5 mg PO DAILY Qty: 90 2RF aspirin [Adult Aspirin Regimen] 81 mg tablet,delayed release (DR/EC) 81 mg PO DAILY Qty: 90 2RF metoprolol succinate [Toprol XL] 25 mg tablet extended release 24 hr 25 mg PO DAILY Qty: 90 3RF buspirone 10 mg tablet 10 mg PO BID 30 Days Qty: 60 3RF albuterol sulfate 90 mcg/actuation HFA aerosol inhaler 2 puff inhalation Q6H 7 Days Qty: 8.5 0RF Referrals: Rod Parker, INSULATOR TECHNICIAN-BC [Primary Care Provider, Internal Medicine] Clinical Impression: Allergic reaction Print Language: Thai
--- NOTE | 2025-02-03 20:44 | ECG_ITS ---
Test Reason : CHEST PAIN Blood Pressure : */* mmHG Vent. Rate : 83 BPM Atrial Rate : 83 BPM P-R Int : 140 ms QRS Dur : 94 ms QT Int : 354 ms P-R-T Axes : 61 120 75 degrees QTcB Int : 415 ms Sinus rhythm with occasional Premature ventricular complexes Anterolateral infarct , age undetermined Abnormal ECG No previous ECGs available Referred By: Richard Ch Electronically Signed By: TORSTEN BYRNE MD
--- NOTE | 2025-02-03 21:01 | ECG_ITS ---
Test Reason : REPEAT Blood Pressure : */* mmHG Vent. Rate : 81 BPM Atrial Rate : 81 BPM P-R Int : 140 ms QRS Dur : 96 ms QT Int : 352 ms P-R-T Axes : 64 119 82 degrees QTcB Int : 408 ms Normal sinus rhythm Anterolateral infarct (cited on or before 03-Feb-2025) Abnormal ECG When compared with ECG of 03-Feb-2025 20:50, Premature ventricular complexes are no longer Present Referred By: Richard Ch Electronically Signed By: TORSTEN BYRNE MD
[2025-02-03 21:13] LABS: Hematocrit 50.5 % (42.0-52.0); Hemoglobin 16.7 g/dl (14.0-18.0); Imm Gran Abs Auto 0.04 X10*3/uL (0.00-0.03); Imm Gran Pct Auto 0.4 % (0.0-0.4); Lymphocytes Absolute Auto 0.9 X10*3/uL (1.2-4.9); MANUAL DIFF FLAG NO; Mean Corpuscular HGB Conc 33.1 g/dl (31.0-36.0); Mean Corpuscular Hemoglobin 29.6 pg (27.0-33.0); Mean Corpuscular Volume 89.5 fL (80.0-98.0); NRBC Abs Auto 0.000 X10*3/uL (0.0-0.012); NRBC Pct Auto 0.0 /100WBC (0.0-0.2); Platelet Count 248 X10*3/uL (160-400); Red Blood Count 5.64 X10*6/uL (4.60-5.80); White Blood Count 11.1 X10*3/uL (4.8-10.8)
[2025-02-03 21:29] LABS: Alanine Aminotransferase 22 U/L (0-40); Albumin Level 4.6 g/dL (3.5-5.0); Alkaline Phosphatase 84 U/L (39-117); Anion Gap 10 (12-20); Aspartate Amino Transferase 25 U/L (5-37); Blood Urea Nitrogen 13 mg/dL (9-16); Calcium 9.8 mg/dL (8.4-10.2); Carbon Dioxide 29 mmol/L (22-29); Chloride 105 mmol/L (96-108); Creatinine Clr Calc Pharmacy 71.0; Estimated Glomerular Filt Rate > 60; Potassium 4.3 mmol/L (3.3-5.1); Sodium 140 mmol/L (135-145); Total Protein 7.5 g/dL (6.5-8.0)
[2025-02-03 21:37] LABS: Troponin-I High Sensitivity 12.7 ng/L (<3.5-35.0)
[2025-02-03 22:48] VITALS: BP 117/78; PULSE 79; RESP 18; TEMP 37; O2SAT 99
[2025-02-03 23:49] LABS: Troponin-I High Sensitivity 12.9 ng/L (<3.5-35.0)
[2025-02-04 00:08] VITALS: BP 123/84; PULSE 76; RESP 12; TEMP 37; O2SAT 96
== END 2025-02-04 00:21 | disposition home or self-care (01) ==
PROVIDERS: Physician Assistant; Emergency Provider Emergency Medicine; PCP Nurse Practitioner Family
DX: R06.02 Shortness of breath (principal); T78.1XXA Other adverse food reactions, not elsewhere classified, initial encounter; R07.89 Other chest pain; I25.10 Atherosclerotic heart disease of native coronary artery without angina pectoris; Z79.899 Other long term (current) drug therapy; X58.XXXA Exposure to other specified factors, initial encounter
CPT/HCPCS: 36415; 80053; 84484; 85025; 93005; 96374; 96375; 99284; J1200; J1308; J2919

== ENCOUNTER → 2025-02-03 20:44 | Outpatient (BNV) | payer OTHER, SELFPAY | PROVIDERS: Emergency Provider Emergency Medicine; PCP Nurse Practitioner Family; Visit Provider Internal Medicine Cardiovascular Disease | DX: I49.3 Ventricular premature depolarization (principal); I25.2 Old myocardial infarction | CPT/HCPCS: 93010 ==

== ENCOUNTER 2025-02-05 12:51 | Outpatient (AMB) | payer OTHER, SELFPAY ==
--- NOTE | 2025-02-05 12:55 | MHC.OFFVIS ---
Vital Signs 02/05/25 12:59 Height 5 ft 6 in Weight 164 lb BMI 26.5 BP 129/80 Blood Pressure Location Lt brachial Position Sitting Pulse 91 Intake Visit Reasons: Rectal Bleeding ,Pt to bring last [place] report Intake Note: Mansoor presents in the office for rectal bleeding. CC: He brought the pathology from his last colonoscopy - states that he is having acid reflux, he had a cold and an allergy 2 days ago and he states it effected his speech, breathing and chest pains. It has gotten a little better but he is still feeling the symptoms. He states that it was a smoothie and he was given the smoothie to help with his hemorrhoids issues. He states that he only has bleeding when he has issues with constipation and having to strain to much to pass a BM. Doctor Of Chiropractic Required: Yes Doctor Of Chiropractic Name: [id number] Partha Allergies pineapple Allergy (Mild, Verified 02/05/25 13:03) Unknown tree and shrub pollen Allergy (Mild, Verified 02/05/25 13:03) Unknown HPI Comments Details: 53 y.o M with PMH of etOH use disorder, HTN, HLD, CAD s/p PCI in his 40s, who is here for following issues - Reports feeling of bloating and fullness x 2 months without N/V. No change in bowel habits. No unintentional weight loss. No new meds. Did travel to 2 months ago and that where the sx started. - With this he also started experiencing rectal bleeding after defecation. BM is brown, blood comes after and on wiping. Sometimes has pain on defecation. Last colo was in 2022 in [facility] - hemorrhoids +. No polyps as far pt is aware. Done at [facility]. These sx have resolved since. Currently no GI sx. - elevated LFTs noted 06/2024 which have since normalized. Drinks 8 oz of rum daily. Drinks more when he is traveling. Used to drink 16 oz but cut down due to abd discomfort above. Does not smoke. No IVDU. Mother had cirrhosis US 07/2024: LIVER: Heterogeneous liver texture combined with nodular surface raising suspicion for liver parenchymal disease liver cirrhosis. No ultrasound evidence of focal liver lesion. No intra or extrahepatic biliary dilatation. GALLBLADDER: The gallbladder is physiologically distended without evidence of stones, sludge, polyps, wall thickening or pericholecystic fluid. COMMON BILE DUCT: Normal in caliber measuring 0.5 cm in diameter. RIGHT KIDNEY: No hydronephrosis. No renal calculi or focal parenchymal lesions. The kidney measures 10.7 cm in maximum dimension. LEFT KIDNEY: No hydronephrosis. No renal calculi or focal parenchymal lesions. The kidney measures 10.3 cm in maximum dimension. Echogenic foci middle Pole possibly a tiny nonobstructing stones. SPLEEN: The spleen measures 7.6 cm in maximum dimension. 02/05/25: Seen with diplomatic interpreter/translator. Here for follow up on behest of his wheel adjuster and cardiac surgeon for rectal bleeding. Pt reports as long as has a regular BM for which he doesnt have to strain, does not see blood. However, when hes constipated and/or strains notes blood on wiping. Also with abd cramping. Has changed his diet and now takes miralax daily to have a soft BM so not seeing blood anymore. Path report from [facility] reviewed with the help of diplomatic interpreter/translator - consistent with chronic proctitis. Full procedure note is not available. This was Sep 2021. Pt does not recall if needed steroids after. Reports colonoscopy was done for blood in stool at that time as well. [facility] Medical History (Updated 02/05/25 @ 15:05 by Tahmina Ramos MD) Myocardial infarction involving left anterior descending (LAD) coronary artery Atherosclerotic cardiovascular disease High cholesterol Surgical History (Updated 02/05/25 @ 13:03 by SYL Cartagena) Hx of colonoscopy H/O hernia repair H/O cardiac catheterization Family History Sister Ovarian cancer Brother Throat cancer Father Stroke Social History Household Members Other:: nephew Housing: Apartment Alcohol intake: current Alcohol intake frequency: a few times a month Patient Tobacco Use Status: Never used Tobacco e-Cigarette/Vaping Use: Never Used service: No Cognitive needs: No Hearing needs: No Vision needs: Yes Review of Systems Const All systems reviewed & are unremarkable except as noted in HPI and below Physical Exam Vital Signs: BMI result Body Mass Index 26.5 No apparent distress Nonicteric Abdomen soft, nondistended Alert and oriented x3, normal gait Assessment & Plan Assessment & Plan (1) Blood in stool: Code(s): K92.1 - Melena Category: Medical (2) Proctitis: Code(s): K62.89 - Other specified diseases of anus and rectum Category: Medical Plan Reviewed with the patient that based on his symptoms, bleeding was likely secondary to hemorrhoids given the context of constipation and straining. However, since the previous pathology from colonoscopy done in 2021 reports chronic proctitis, will recommend revisualization and biopsies to guide appropriate management. Reviewed in detail that given his underlying multivessel disease, full colonoscopy may be high-risk, but will review with his wheel adjuster. Depending on discussion with the wheel adjuster, schedule him for colonoscopy versus flexible sigmoidoscopy. PEG prep reviewed in anticipation. He is aware he will get a phone call re final procedure type and date of the procedure. Medications: New polyethylene glycol 3350 (Miralax) 238 grams PO ONCE 238 grams 0RF polyethylene glycol 3350 (Miralax) mix in 64 oz gatorade 238 grams PO ONCE 238 grams 0RF polyethylene glycol 3350 (Miralax) 17 grams PO DAILY PRN 238 grams 0RF constipation 90 days Coding Level of Care Code Est Pt Level 4 (29352) Diagnoses Blood in stool K92.1 Proctitis K62.89
[2025-02-05 12:59] VITALS: BP 129/80; PULSE 91; BMI 26.5
== END 2025-02-05 14:13 | disposition home or self-care (01) ==
LOC: HO.HGI 12:52
PROVIDERS: PCP Nurse Practitioner Family; Visit Provider Internal Medicine
DX: K92.1 Melena (principal); K62.89 Other specified diseases of anus and rectum
CPT/HCPCS: 99214

== ENCOUNTER → 2025-02-05 12:51 | Outpatient (BNVA) | payer OTHER, SELFPAY | PROVIDERS: PCP Nurse Practitioner Family; Visit Provider Internal Medicine | DX: K92.1 Melena (principal); K62.89 Other specified diseases of anus and rectum | CPT/HCPCS: 99212 ==

== ENCOUNTER 2025-02-09 15:41 | Outpatient (REF) | payer OTHER, SELFPAY ==
--- NOTE | ~2025-02-09 | XR_ITS ---
EXAMINATION: XR CHEST CLINICAL INFORMATION: R05.9 - Cough, unspecified COMPARISON: 08/08/2020. TECHNIQUE: 2 views of the chest were obtained. FINDINGS: The cardiac, hilar, and mediastinal contours are normal. Left coronary stent noted. The lungs are clear bilaterally. There is no pneumothorax or pleural effusion. There is no focal osseous or soft tissue abnormality. XR/XR chest 2V IMPRESSION: No active pulmonary disease. Electronically signed by: Richard Dasilva MD 02/10/2025 08:20 AM EDT
== END 2025-02-09 15:42 | disposition home or self-care (01) ==
LOC: HO.HMGCX 15:41
PROVIDERS: PCP Nurse Practitioner Family; Visit Provider Physician Assistant Medical
DX: Z13.9 Encounter for screening, unspecified (principal); J06.9 Acute upper respiratory infection, unspecified; R06.02 Shortness of breath; R07.89 Other chest pain; R05.9 Cough, unspecified
CPT/HCPCS: 71046; 87880; 99212

== ENCOUNTER 2025-02-09 15:41 | Outpatient (AMB) | payer OTHER, SELFPAY ==
[2025-02-09 15:45] VITALS: BP 106/70; PULSE 83; TEMP 36.9; O2SAT 95; BMI 26.5
--- NOTE | 2025-02-09 15:45 | AM.OFFWIN_ITS ---
Intake Vital Signs 02/09/25 15:45 Height 5 ft 6 in Weight 164 lb BMI 26.5 BP 106/70 Blood Pressure Location Rt brachial Position Sitting Pulse 83 Pulse Source Pulse Oximeter Temp 98.5 F Pulse Oximetry (%) 95 Oxygen Delivery Method Room Air Intake Visit Reasons: PE Cough, chest congestion Intake Note: presents with productive cough with dark phlegm, chest congestion, sore throat with pain swallowing for 1 week Patient Tobacco Use Status: Never used Tobacco Allergies pineapple Allergy (Severe, Verified 02/09/25 15:54) anyphylaxis tree and shrub pollen Allergy (Mild, Verified 02/09/25 15:54) Unknown Do you need a note to return to daycare/school/sports/work: No HPI HPI Comments History of Present Illness Details History - The patient is a 54-year-old male pres enting with persistent cough and shortness of breath. - He was seen here on 01/13 with the same symptoms. - He was tested for covid/RSV/flu and it was negative. - He was given a z-patrick and tessalon nick es and he did have some relief of symptoms. - Symptoms returned following an allergi c reaction. - The allergic reaction occurred on February 03 after consuming pineapple and natural medicine, leading to difficulty breathing and a visit to the emergency room. - The patient was treated with Solu-Medr ol, Benadryl, and Pepcid in the emergency room, where he had an EKG. - Despite treatment, the patient continu es to experience a persistent cough, shortness of breath, and chest congestion. - The patient reports feeling suffocated and experiencing chest pressure, with no relief from prednisone. - There is no fever reported. - He denies abd pain, n/v/d. - Reports that the tessalon perles did h elp his symptoms and is requesting more. Physical Exam General: Cooperative, healthy appearing, comfortable and no acute distress Orientation/consciousness: Patient oriented x3 Head: Normal to inspection Ears: Hearing grossly normal bilaterally, external ears normal and TM's normal bilaterally Nose: Normal external nose present, normal nares present, and no nasal discharge present. Face and sinus: Sinuses nontender to palpation. Mouth: Normal oral and palatal mucosa present and moist mucous membranes noted. Throat: Tonsils normal. Uvula is midline. Posterior oropharynx with erythema and no exudates. Eyes: Appearance normal, both eyes and all related structures Neck: Normal visual inspection, full ROM. No lymphadenopathy noted. Respiratory: Clear to auscultation bilaterally. Normal respiratory effort, able to speak in complete sentences. No respiratory distress, not tachypneic, no tripod positioning and no use of accessory muscles. Patient reports persistent cough and congestion. Shortness of breath noted. Cardiovascular: Regular rate and rhythm. Normal S1 and S2 Skin: No rashes or lesions noted. Patient reports itchy hands. Patient was informed and verbally consented to the use of an ambient scribe for clinic note documentation during this visit [facility]LY [facility] Medical History (Updated 02/05/25 @ 15:05 by Tahmina Ramos MD) Myocardial infarction involving left anterior descending (LAD) coronary artery Atherosclerotic cardiovascular disease High cholesterol Surgical History (Updated 02/05/25 @ 13:03 by SYL Cartagena) Hx of colonoscopy H/O hernia repair H/O cardiac catheterization Family History Sister Ovarian cancer Brother Throat cancer Father Stroke Social History Household Members Other:: nephew Housing: Apartment Alcohol intake: current Alcohol intake frequency: a few times a month Patient Tobacco Use Status: Never used Tobacco e-Cigarette/Vaping Use: Never Used service: No Cognitive needs: No Hearing needs: No Vision needs: Yes Review of Systems Const All systems reviewed & are unremarkable except as noted in HPI and below Physical Exam Vital Signs: Last Vital Signs Temp 98.5 F 02/09/25 15:45 Pulse 83 02/09/25 15:45 BP 106/70 02/09/25 15:45 Pulse Ox 95 02/09/25 15:45 Oxygen Delivery Method Room Air 02/09/25 15:45 BMI result Body Mass Index 26.5 Results AMB Rapid Strep AMB Rapid Strep Negative Last Edit by Letty Mcfarland MA on 02/09/25 16:07 Assessment & Plan Assessment & Plan (1) URI with cough and congestion: Code(s): J06.9 - Acute upper respiratory infection, unspecified Plan Most likely URI vs bronchitis vs GERD vs CHF vs CAP vs allergies Plan - A chest x-ray will be performed to further evaluate the patient's respiratory symptoms. - The patient will be prescribed an inhaler, cough medicine, and prednisone to manage symptoms. - Follow-up will be conducted based on the chest x-ray results. - VSS, pt well appearing - can add a resp panel to r/o viruses - tylenol as needed - follow up with PCP Orders: Orders XR chest 2V Today R05.9 - Cough, unspecified AMB Rapid Strep Screen Today Z13.9 - Encounter for screening, unspecified Medications: New benzonatate 100 mg PO bid-tid PRN 30 caps 0RF Cough 10 days albuterol sulfate 90 mcg/actuation 2 puffs inhalation Q6H PRN 8.5 grams 0RF shortness of breath or wheezing or cough 7 days prednisone 50 mg PO QAM 5 tabs 0RF 5 days Coding Level of Care Code Est Pt Level 4 (53661) Diagnoses URI with cough and congestion J06.9
== END 2025-02-09 16:19 | disposition home or self-care (01) ==
PROVIDERS: PCP Nurse Practitioner Family; Visit Provider Physician Assistant Medical
DX: Z13.9 Encounter for screening, unspecified (principal); J06.9 Acute upper respiratory infection, unspecified

== ENCOUNTER → 2025-02-09 16:18 | Outpatient (BNV) | payer OTHER, SELFPAY | PROVIDERS: PCP Nurse Practitioner Family; Visit Provider Radiology Diagnostic Radiology | DX: R05.9 Cough, unspecified (principal) | CPT/HCPCS: 71046 ==

== ENCOUNTER 2025-03-19 07:55 | Outpatient (REF) | payer OTHER, SELFPAY ==
--- NOTE | ~2025-03-19 | XR_ITS ---
EXAMINATION: XR LUMBOSACRAL SPINE CLINICAL INFORMATION: M54.50 - Low back pain, unspecified COMPARISON: July 01, 2024. TECHNIQUE: AP, oblique and lateral views FINDINGS: No acute cortical disruption or gross malalignment. No lytic or blastic lesions. Small marginal osteophyte formation at multiple levels of the axial skeleton. Vascular calcifications, aorta. XR/XR lumbar spine 4V min IMPRESSION: Mild multilevel thoracolumbar spondylosis without acute fracture or listhesis. Atherosclerosis disease, aorta. Electronically signed by: Ko Morin MD 03/19/2025 09:25 AM EDT
[2025-03-19 10:03] LABS: MANUAL DIFF FLAG NO
[2025-03-19 10:09] LABS: Hematocrit 39.7 % (42.0-52.0); Hemoglobin 12.7 g/dl (14.0-18.0); Imm Gran Abs Auto 0.02 X10*3/uL (0.00-0.03); Imm Gran Pct Auto 0.4 % (0.0-0.4); Lymphocytes Absolute Auto 1.3 X10*3/uL (1.2-4.9); Mean Corpuscular HGB Conc 32.0 g/dl (31.0-36.0); Mean Corpuscular Hemoglobin 29.4 pg (27.0-33.0); Mean Corpuscular Volume 91.9 fL (80.0-98.0); NRBC Abs Auto 0.000 X10*3/uL (0.0-0.012); NRBC Pct Auto 0.0 /100WBC (0.0-0.2); Platelet Count 515 X10*3/uL (160-400); Red Blood Count 4.32 X10*6/uL (4.60-5.80); White Blood Count 5.6 X10*3/uL (4.8-10.8)
== END 2025-03-19 07:56 | disposition home or self-care (01) ==
LOC: HO.HMGCX 07:55
PROVIDERS: PCP Nurse Practitioner Family; Visit Provider Physician Assistant
DX: Z09 Encounter for follow-up examination after completed treatment for conditions other than malignant neoplasm (principal); M54.50 Low back pain, unspecified; K92.1 Melena
CPT/HCPCS: 36415; 72110; 85025; 99212

== ENCOUNTER 2025-03-19 07:55 | Outpatient (AMB) | payer OTHER, SELFPAY ==
--- NOTE | 2025-03-19 08:06 | A.OFFPC_ITS ---
Vital Signs 03/19/25 08:07 Height 5 ft 6 in Weight 159 lb BMI 25.7 BP 108/72 Blood Pressure Location Lt brachial Position Sitting Pulse 62 Pulse Source Pulse Oximeter Temp 98.5 F Temp Source Oral Pulse Oximetry (%) 97 Oxygen Delivery Method Room Air Intake Visit Reasons: Hospital discharge Intake Note: pt is here for d/c from [facility] Lifts And Cranes Inspector Required: Yes Lifts And Cranes Inspector Language: Ukrainian Allergies pineapple Allergy (Severe, Verified 03/19/25 08:10) anyphylaxis tree and shrub pollen Allergy (Mild, Verified 03/19/25 08:10) Unknown Tobacco use date assessed: 12/31/24 Dental Screening Dental Screen Date: 09/23/24 HPI HPI Comments History of Present Illness Details 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 According to the records provided by [facility], the patient has not had any follow-up in the since his [place]. and over the past 4-5 months he had been experiencing shortness of breaths with exertion and at rest and some vague chest discomfort, his echo revealed an LV function about 45-50% with an akinetic apex. Myocardial perfusion scan demonstrated likely infarct in the apex of the LV. Cardiac catheterization demonstrated multiple lesions in the LAD and complex bifurcation lesions in the circumflex system. He was evaluated on 03/02/[address] Waite. On March 02, Dr. Waite performed a CABG x3, MAGANA to LAD, saphenous vein graft to OM 1 and saphenous vein graft to OM 3. His postop course was routine and 6 days later he was discharged home on March 08, 2025 with visiting nurse services from [facility]. Discharge follow up appointments was with Dr. Waite for 1 week, Dr. Iqbal for 2-5 weeks, his PCP for 2-5 weeks and the cardiac rehab center which an appointment was made for him on April 07 at 10:30. He was seen by Dr. Ortiz at [facility] cardiac surgery on March 16 where his major complaints were some rectal bleeding with blood noted on the toilet paper and uszanna blood in the toilet as well as some upper and lower back pain and mild sternal discomfort. He was advised to follow up with his PCP for a referral to a colorectal surgeon for further management of his hemorrhoids. He is also told to avoid heavy lifting. Today, he was here with his 2 daughters. He denies chest pain, shortness of breath, shortness of breath with exertion or fevers. He tells me he was having some rectal bleeding but hasn't had any bleeding for the last 2 days. He has a hx of hemorrhoids and saw blood in the toilet. He has never seen a colorectal surgeon about it. His H&H was normal upon discharge, hasn't had them checked since then. He tells me he has had some back pain since discharge, mostly in the thoracic region and lumbar region. He has a hx of a herniated disk, they are unsure further details. He is taking tylenol and a muscle relaxer. Back pain is worse in midback area when sitting and low back area when laying down. In 06/29, he had lumbar XR which showed: XR/XR lumbar spine 2-3V IMPRESSION: Minimal multilevel degenerative disc disease He was told to go to physical therapy but his daughter state they never heard from anyone regarding physical therapy appointments. [facility] Medical History (Updated 03/19/25 @ 09:01 by Silvina Rm PA-C) Myocardial infarction involving left anterior descending (LAD) coronary artery Atherosclerotic cardiovascular disease High cholesterol Surgical History (Updated 03/19/25 @ 08:33 by Silvina Rm PA-C) S/P CABG x 3 Hx of colonoscopy H/O hernia repair H/O cardiac catheterization Family History Sister Ovarian cancer Brother Throat cancer Father Stroke Social History Household Members Other:: nephew Housing: Apartment Alcohol intake: current Alcohol intake frequency: a few times a month Patient Tobacco Use Status: Never used Tobacco e-Cigarette/Vaping Use: Never Used service: No Cognitive needs: No Hearing needs: No Vision needs: Yes Questionnaire Thrive Questionnaire Date Thrive assessed: 09/16/24 I am a: Patient What is your living situation today?: I have a steady place to live Within the past 12 months, did the food you bought not last and you didn't have the money to get more?: Never true Within the past 12 months, did you worry whether your food would run out before you got money to buy more?: Never true Do you have trouble paying for medicines?: No Do you have trouble getting transportation to medical appointments?: No Do you have trouble paying your heating and electricity bill?: No Do you have trouble taking care of your child, family member or friend?: No Do you have trouble with day-to-day activities such as bathing, preparing meals, shopping, managing finances, etc.?: No Are you currently unemployed and looking for a job?: No Are you interested in more education?: I choose not to answer this question Please select the resources that you would like help with: None Currently or been in a relationship where the following occur: No concerns reported THRIVE Score: 0 ZANE-7 AMB Questionnaire ZANE-7 Date ZANE - 7 assessed: 09/23/24 Source: Developed by Drs. Jeremy Qureshi, Sun Wyman, Gus Mitchell and colleagues, with an educational mark from [employer]. Review of Systems Const All systems reviewed & are unremarkable except as noted in HPI and below Physical exam (Primary Care) Vital Signs: Last Vital Signs Temp 98.5 F 03/19/25 08:07 Pulse 62 03/19/25 08:07 BP 108/72 03/19/25 08:07 Pulse Ox 97 03/19/25 08:07 Oxygen Delivery Method Room Air 03/19/25 08:07 BMI result Body Mass Index 25.7 Tobacco/Smoking Status: Tobacco use Status Tobacco use date assessed 12/31/24 03/19/25 08:09 Patient Tobacco Use Status Never used Tobacco 03/19/25 08:09 e-Cigarette/Vaping Use Never Used 03/19/25 08:09 Thrive Assessment: Date of Thrive Assessment Date Thrive assessed 09/16/24 03/19/25 08:09 Currently or been in a relationship where the following occur: No concerns reported Const General: cooperative, healthy appearing, comfortable, no acute distress and well developed Orientation/consciousness: patient oriented x3 Limitations: no limitations HENMT Head: Yes normal to inspection Ears: hearing grossly normal bilaterally General nose exam: Normal external nose present Face and sinus: Yes normal facial exam Eyes General: appearance normal, both eyes and all related structures Neck Neck: Yes normal visual inspection and Yes full ROM Resp Effort & Inspection: normal respiratory effort and able to speak in complete sentences Auscultation: clear to auscultation bilaterally Cardio Rate: regular rate Rhythm: regular rhythm Heart sounds: normal S1 and S2 GI Inspection: Yes normal to inspection Back/Spine/Pelvis Cervical Spine: normal cervical lordosis, cervical ROM normal, No pain with cervical ROM and No Cervical spine tenderness Thoracic/Lumbar Spine: thoracic and lumbar spine normal to inspection, paraspinal muscle tenderness bilaterally in the mid thoracic and in the lower thoracic, No thoracic spinal tenderness and lumbar spinal tenderness at L3 and at L4 Skin Other: vertical surgical scar is healing well, no warmth, no discharge, some scab on the inferior portion. 2 small horizontal surgical scars on the abdomen which are also healing well, no warmth, no discharge, scabs in place. superior portion of the vertical surgical scar on RLE has a small amount of purulence, no warmth or erythema and the remainder of the wound has a scab in place. Neuro General: patient oriented x3 Extrem General: Yes normal to inspection Coding Level of Care Code Est Pt Level 5 (67126) Diagnoses Hospital discharge follow-up Z09 Acute midline low back pain without sciatica M54.50 Chronicity: acute Back pain laterality: midline Sciatica presence: without sciatica Blood in stool K92.1 Assessment & Plan Assessment & Plan (1) Hospital discharge follow-up: Code(s): Z09 - Encounter for follow-up examination after completed treatment for conditions other than malignant neoplasm Category: Medical Plan: Wounds from his surgery appear to be healing well however the one on his right leg had some purulent discharge which we cleaned up, advised to keep it clean and dry, washing it with soap and water and follow up with his cardiac surgeon if the purulence increases, if it becomes painful, red or if he develops a fever. The remainder of his wounds on his chest and abdomen appear to be healing well. Advised follow-up with Dr. Iqbal as scheduled and continue to follow with Cardiac surgery as scheduled. He also is aware he has an appointment on April 07 to start cardiac rehab at [facility]. (2) Lower back pain: Code(s): M54.50 - Low back pain, unspecified Category: Medical Qualifiers: Chronicity: acute Back pain laterality: midline Sciatica presence: without sciatica Qualified Code(s): M54.50 - Low back pain, unspecified Plan: On exam, patient has point tenderness on the lumbar spine, we will repeat the lumbar x-ray today. Advised that if it is similar to the last one that he should get clearance from his cardiac surgeon and then schedule physical therapy, a PT referral was sent in August by his PCP. I did send naproxen to his pharmacy and told him to use it sparingly and then sent naproxen gel to his pharmacy as well as some more muscle relaxers. Advised he can use ice or heat as well. (3) Blood in stool: Code(s): K92.1 - Melena Category: Medical Plan: H&H was normal upon discharge but as he has been bleeding, we will repeat the CBC to be thorough. Advised that he should follow up with Dr. Ramos regarding his flex sig and once he gets clearance from his cardiac surgeon, he should pursue this with Dr. Ramos. Reviewed his upcoming appointment with her on May 06. Orders: Orders XR lumbar spine 4V min Today M54.50 - Low back pain, unspecified Complete Blood Count Auto Diff Today K92.1 - Melena Medications: New cyclobenzaprine 5 mg PO Q8H PRN 20 tabs 0RF Muscle Spasm diclofenac sodium 3% 1 appl topical BID 100 grams 0RF naproxen 500 mg PO Q12H PRN 20 tabs 0RF pain
[2025-03-19 08:07] VITALS: BP 108/72; PULSE 62; TEMP 36.9; O2SAT 97; BMI 25.7
== END 2025-03-19 10:26 | disposition home or self-care (01) ==
LOC: HO.HMCC 07:56
PROVIDERS: PCP Nurse Practitioner Family; Visit Provider Physician Assistant
DX: M54.50 Low back pain, unspecified (principal); Z09 Encounter for follow-up examination after completed treatment for conditions other than malignant neoplasm; K92.1 Melena

== ENCOUNTER → 2025-03-19 09:06 | Outpatient (BNV) | payer OTHER, SELFPAY | PROVIDERS: PCP Nurse Practitioner Family; Visit Provider Radiology Diagnostic Radiology | DX: M47.815 Spondylosis without myelopathy or radiculopathy, thoracolumbar region (principal) | CPT/HCPCS: 72110 ==

== ENCOUNTER 2025-04-08 09:55 | Outpatient (AMB) | payer OTHER, SELFPAY ==
--- NOTE | 2025-04-08 10:40 | MHC.OFFVIS ---
Vital Signs 04/08/25 10:41 Height 5 ft 6 in Weight 156 lb 8.451 oz BMI 25.3 BP 110/60 Blood Pressure Location Lt brachial Position Sitting Pulse 78 Pulse Source Pulse Oximeter Intake Visit Reasons: 2m follow up Senior Mechanical Designer Required: Yes Senior Mechanical Designer Name: MENDY [id number] Allergies pineapple Allergy (Severe, Verified 03/19/25 08:10) anyphylaxis tree and shrub pollen Allergy (Mild, Verified 03/19/25 08:10) Unknown Medication List - Last Reconciled 04/08/25 by Andrew Iqbal MD albuterol sulfate 90 mcg/actuation 2 puffs inhalation Q6H PRN 7 days aspirin 81 mg PO DAILY atorvastatin 40 mg PO BEDTIME cyclobenzaprine 5 mg PO Q8H PRN diclofenac sodium 3% 1 appl topical BID metoprolol tartrate 25 mg PO BID naproxen 500 mg PO Q12H PRN polyethylene glycol 3350 (Miralax) 17 grams PO DAILY PRN 90 days HPI Comments Details: Mansoor returns for follow-up. To recall, he was initially seen in consultation regarding coronary disease. He used to live with the [place] but has moved here few years back. It seems that he underwent cardiac catheterization while in [facility] for a heart attack around 2012. The actual details are not very clear. During prior visits, he has described nonspecific chest pains at nighttime and some shortness of breath with activity as well as heart fluttering symptoms. He has had alcohol excess in the past but not recently. Also previous noncompliance but currently taking all his medications. Underwent cardiac catheterization followed but coronary artery bypass surgery. He is recovering well. No new concerns. Currently, denies any new cardiac symptoms. He was also having some hemorrhoidal bleed but that is seems to be okay per patient. ON LICENSE OF [facility] Medical History (Updated 03/19/25 @ 09:01 by Silvina Rm PA-C) Myocardial infarction involving left anterior descending (LAD) coronary artery Atherosclerotic cardiovascular disease High cholesterol Surgical History (Updated 03/19/25 @ 08:33 by Silvina Rm PA-C) S/P CABG x 3 Hx of colonoscopy H/O hernia repair H/O cardiac catheterization Family History Sister Ovarian cancer Brother Throat cancer Father Stroke Social History Household Members Other:: nephew Housing: Apartment Alcohol intake: current Alcohol intake frequency: a few times a month Patient Tobacco Use Status: Never used Tobacco e-Cigarette/Vaping Use: Never Used service: No Cognitive needs: No Hearing needs: No Vision needs: Yes Review of Systems Const Denies weakness ENT Denies dizziness Card Denies chest pain, Denies chest pain with activity, Denies syncope, Denies rapid heart rate, Denies pedal edema, Denies edema, Denies leg edema, Denies lightheadedness, Denies palpitations, Denies dyspnea, Denies dyspnea on exertion and Denies orthopnea Resp Denies cough, Denies dyspnea and Denies dyspnea on exertion GI Denies hematochezia and Denies change in stool character Musc Denies abnormal gait, Denies muscle cramps, Denies muscle weakness, Denies numbness, Denies radiating pain into limb and Denies tingling Neuro Denies abnormal gait, Denies dizziness, Denies syncope, Denies numbness, Denies tingling and Denies weakness Endo Denies palpitations Physical Exam Vital Signs: Last Vital Signs Pulse 78 04/08/25 10:41 BP 110/60 04/08/25 10:41 BMI result Body Mass Index 25.3 Const General: comfortable and no acute distress Orientation/consciousness: patient oriented x3 HEENT Other: Unremarkable Head: Yes normal to inspection Neck Neck: Yes normal visual inspection Chest Chest palpation & inspection: normal inspection of the chest Resp Auscultation: clear to auscultation bilaterally Cardio Palpation: normal PMI Heart sounds: S1 normal heart sound present, S2 normal heart sound present, no gallops, no murmurs and no rubs GI Palpation (GI): Soft to palpation Back/Spine/Pelvis Other: unremarkable Skin General skin exam: no rashes or lesions noted Neuro General: patient oriented x3 Extrem General: Yes normal to inspection Psych Mental Status: mental status grossly normal Assessment & Plan Assessment & Plan (1) Atherosclerotic cardiovascular disease: Code(s): I25.10 - Atherosclerotic heart disease of [place] coronary artery without angina pectoris Category: Medical (2) Myocardial infarction involving left anterior descending (LAD) coronary artery: Code(s): I21.02 - ST elevation (STEMI) myocardial infarction involving left anterior descending coronary artery Category: Medical (3) Dyslipidemia: Code(s): E78.5 - Hyperlipidemia, unspecified Category: Medical (4) PVC (premature ventricular contraction): Code(s): I49.3 - Ventricular premature depolarization Category: Medical (5) S/P CABG x 3: Code(s): Z95.1 - Presence of aortocoronary bypass graft Category: Surgical Plan Cardiac studies reviewed. In the recent echocardiogram, LVEF is 45-50%. Wall motion abnormality in the LAD territory. [place], apical anterior/apical septal areas are akinetic. No significant valve findings. Myocardial perfusion imaging study shows mostly infarct or myocardium in the LAD territory/no clear reversible ischemia. In the diagnostic catheterization, normal left main, proximal LAD stent is patent. Mid to distal LAD with severe stenosis. Severe circumflex disease involving mid circumflex/bifurcation with OM1, 2 and 3. He is status post coronary artery bypass surgery x3 on recovering well. Continue long-term aspirin. He is also on beta-blockers and statins and that can be continued. In 2023 LDL was 226. In October of 2024, 91. We will follow up in due course with more labs. He has had PVCs on Holter with an 8% burden. May improve post surgery. He is on beta-blockers. Otherwise, start cardiac rehabilitation. He would like to switch that from [facility] to [place]. With regard to any GI workup, as his bleeding itself is stable may wait for about 6 months before scheduling. Discussed with daughter who came for appointment. Orders: Orders Cardiac Rehab Today Z95.1 - Presence of aortocoronary bypass graft Coding Level of Care Code Est Pt Level 4 (83332) Complex EM visit Add On G2211 Diagnoses Atherosclerotic cardiovascular disease I25.10 Myocardial infarction involving left anterior descending (LAD) coronary artery I21.02 Dyslipidemia E78.5 PVC (premature ventricular contraction) I49.3 S/P CABG x 3 Z95.1
[2025-04-08 10:41] VITALS: BP 110/60; PULSE 78; BMI 25.3
== END 2025-04-08 10:51 | disposition home or self-care (01) ==
LOC: HO.HCS 09:56
PROVIDERS: PCP Nurse Practitioner Family; Visit Provider Internal Medicine
DX: I25.10 Atherosclerotic heart disease of native coronary artery without angina pectoris (principal); I21.02 ST elevation (STEMI) myocardial infarction involving left anterior descending coronary artery; E78.5 Hyperlipidemia, unspecified; I49.3 Ventricular premature depolarization; Z95.1 Presence of aortocoronary bypass graft
CPT/HCPCS: 99214

== ENCOUNTER → 2025-04-08 09:55 | Outpatient (BNVA) | payer OTHER, SELFPAY | PROVIDERS: PCP Nurse Practitioner Family; Visit Provider Internal Medicine | DX: I25.10 Atherosclerotic heart disease of native coronary artery without angina pectoris (principal); I21.02 ST elevation (STEMI) myocardial infarction involving left anterior descending coronary artery; E78.5 Hyperlipidemia, unspecified; I49.3 Ventricular premature depolarization; Z95.1 Presence of aortocoronary bypass graft | CPT/HCPCS: 99212 ==

== ENCOUNTER 2025-04-28 10:01 | Outpatient (AMB) | payer OTHER, SELFPAY ==
[2025-04-28 10:11] VITALS: BP 106/74; PULSE 75; TEMP 36.8; O2SAT 96
--- NOTE | 2025-04-28 10:11 | MHC.OFFWIV ---
Intake Vital Signs 04/28/25 10:11 Height 5 ft 6 in BP 106/74 Blood Pressure Location Lt brachial Position Sitting Pulse 75 Pulse Source Pulse Oximeter Temp 98.2 F Temp Source Oral Pulse Oximetry (%) 96 Oxygen Delivery Method Room Air Intake Visit Reasons: EP-rt ankle pain & swollen Intake Note: pt presents with right ankle pain and swelling Patient Tobacco Use Status: Never used Tobacco Allergies pineapple Allergy (Severe, Verified 04/28/25 10:14) anyphylaxis tree and shrub pollen Allergy (Mild, Verified 04/28/25 10:14) Unknown Do you need a note to return to daycare/school/sports/work: Yes HPI HPI Comments History of Present Illness Details History of Present Illness - The patient is a 54-year-old Georgian speaking male 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 - The swelling began after cardiology therapy following open-heart surgery, with symptoms exacerbated by treadmill use and exercise bike. - The patient reports significant pain, particularly during movement, which interferes with sleep and therapy. - No prior imaging of the ankle was conducted post-surgery. - He has pain when he is weight bearing. - He has been having back pain but the pain does not radiate to the buttock, leg or ankle. - He denies trauma, falls, numbness, tingling, redness, warmth, or calf tenderness. rash - The patient also reports a rash near the arterial site used during surgery, noticed approximately 15 days ago. - The rash is not itchy, and no new soaps or lotions have been used. - He has no new medications, clothes, foods, pets, travel - He denies joint pain, fever, or chills. Physical Exam General: Cooperative, healthy appearing, comfortable, no acute distress and well developed Orientation: Patient oriented x3 Limitations: No limitations Respiratory: Normal respiratory effort and able to speak in complete sentences. Clear to auscultation bilaterally Cardiovascular: Regular rate and rhythm. Normal S1 and S2 Skin: Erythematous raised blanchable non-tender, dry patch on the right inner thigh and right anterior shoulder. Neuro: Sensation intact Extremities: Swelling noted on the right lateral ankle. No deformity noted. No bruising noted. FROM of the right ankle. TTP of the right lateral malleolus. No TTP of the calcaneous, Achilles tendon, metatarsals on the right. Strength is 5/5 on the LE. Ambulates with steady gait. Patient was informed and verbally consented to the use of an ambient scribe for clinic note documentation during this visit. [facility] Medical History (Updated 03/19/25 @ 09:01 by Silvina Rm PA-C) Myocardial infarction involving left anterior descending (LAD) coronary artery Atherosclerotic cardiovascular disease High cholesterol Surgical History (Updated 03/19/25 @ 08:33 by Silvina Rm PA-C) S/P CABG x 3 Hx of colonoscopy H/O hernia repair H/O cardiac catheterization Family History Sister Ovarian cancer Brother Throat cancer Father Stroke Social History Household Members Other:: nephew Housing: Apartment Alcohol intake: current Alcohol intake frequency: a few times a month Patient Tobacco Use Status: Never used Tobacco e-Cigarette/Vaping Use: Never Used service: No Cognitive needs: No Hearing needs: No Vision needs: Yes Review of Systems Const All systems reviewed & are unremarkable except as noted in HPI and below Physical Exam Vital Signs: Last Vital Signs Temp 98.2 F 04/28/25 10:11 Pulse 75 04/28/25 10:11 BP 106/74 04/28/25 10:11 Pulse Ox 96 04/28/25 10:11 Oxygen Delivery Method Room Air 04/28/25 10:11 Results Reviewed Results Reviewed: Reviewed the xray in office today IMPRESSION: 1. Lateral soft tissue swelling. 2. No acute bony abnormalities. Assessment & Plan Assessment & Plan (1) Right ankle swelling: Code(s): M25.471 - Effusion, right ankle Plan: Most likely sprain vs strain vs arthritis, unlikely fracture plan - Plan to obtain an x-ray of the right ankle to assess for any underlying issues. - Provide an ankle brace to support the joint and alleviate symptoms. - rest, ice and elevation of the ankle - tylenol or motrin as needed for pain - elevate the leg - activities as tolerated (2) Rash: Code(s): R21 - Rash and other nonspecific skin eruption Plan: Most likely contact dermatitis vs allergic reaction plan - hydrocortisone cream to the area - benadryl as needed - follow up with PCP Orders: Orders XR ankle RT min 3V Today M25.471 - Effusion, right ankle Medications: New hydrocortisone 2.5% 1 appl topical BID PRN 30 grams 0RF Skin Irritation Coding Level of Care Code Est Pt Level 4 (58006) Diagnoses Right ankle swelling M25.471 Rash R21
== END 2025-04-28 11:26 | disposition home or self-care (01) ==
PROVIDERS: PCP Nurse Practitioner Family; Visit Provider Physician Assistant Medical
DX: M25.471 Effusion, right ankle (principal); R21 Rash and other nonspecific skin eruption

== ENCOUNTER 2025-04-28 10:01 | Outpatient (REF) | payer OTHER, SELFPAY ==
--- NOTE | ~2025-04-28 | XR_ITS ---
EXAMINATION: XR ANKLE, RIGHT CLINICAL INFORMATION: M25.471 - Effusion, right ankle COMPARISON: None available. TECHNIQUE: AP, lateral, and mortise views of the right ankle. FINDINGS: There is no fracture, dislocation, or suspicious bone lesion. There is normal alignment. Joint spaces are preserved. The mortise is intact. The talar dome is normal. Subtalar joints and calcaneus are intact. There is lateral soft tissue swelling. XR/XR ankle RT min 3V IMPRESSION: 1. Lateral soft tissue swelling. 2. No acute bony abnormalities. Electronically signed by: Richard Dasilva MD 04/28/2025 11:15 AM EDT
== END 2025-04-28 10:02 | disposition home or self-care (01) ==
LOC: HO.HMGCX 10:01
PROVIDERS: PCP Nurse Practitioner Family; Visit Provider Physician Assistant Medical
DX: M25.471 Effusion, right ankle (principal); R21 Rash and other nonspecific skin eruption
CPT/HCPCS: 73610; 99212

== ENCOUNTER → 2025-04-28 10:54 | Outpatient (BNV) | payer OTHER, SELFPAY | PROVIDERS: PCP Nurse Practitioner Family; Visit Provider Radiology Diagnostic Radiology | DX: M79.89 Other specified soft tissue disorders (principal) | CPT/HCPCS: 73610 ==

== ENCOUNTER 2025-05-06 08:02 | Outpatient (REF) | payer OTHER, SELFPAY ==
--- NOTE | ~2025-05-06 | US_ITS ---
EXAMINATION: US ABDOMEN COMPLETE WITH LIVER ELASTOGRAPHY HISTORY: R74.8 - Abnormal levels of other serum enzymes TECHNIQUE: Real-time grayscale ultrasound imaging of the abdomen was performed and images were reviewed. COMPARISON: Comparison is made with the prior examination dated 07/10/2024. FINDINGS: Liver: The right lobe of the liver measures 13.5 cm in size. The left lobe of the liver measures 10.6 cm in size. The liver demonstrates normal homogeneous echotexture. No focal mass or intrahepatic biliary ductal dilatation is identified. There is normal hepatopedal flow in the portal vein. Ultrasound elastography of the liver was performed with 10 separate measurements of the liver parenchyma with the patient in the supine position. Measurements were obtained approximately 2 cm below Júnior's capsule and perpendicular to the capsule. The median shear wave velocity is 1.44 m/s. The interquartile range/median (IQR/median) is 0.08. Gallbladder and biliary tree: The gallbladder is unremarkable, without evidence of calculi, wall thickening, or pericholecystic fluid. There is no sonographic Jarquin sign. The common bile duct is normal in caliber measuring 2 mm. Kidneys: The right kidney measures 10.4 cm in length. The left kidney measures 10.6 cm in length. The kidneys are unremarkable, without evidence of masses, hydronephrosis, or calculi. Pancreas: The pancreatic head, neck, and body are unremarkable. The pancreatic tail is obscured by bowel gas. Spleen: The spleen is normal in size and contour, measuring 8.4 cm in length. Abdominal aorta and inferior vena cava: The visualized portions of the abdominal aorta and inferior vena cava are normal in caliber. There is no free fluid in the abdomen. US/US abdomen comp w elastography IMPRESSION: Unremarkable abdominal ultrasound. The median shear wave velocity in the liver is 1.44 m/s, corresponding to a median liver stiffness of 6.26 kPa. The IQR/median value is 0.08. This is indicative of a quality data set. Findings are indicative of a low elastography value which rules out advanced chronic liver disease in asymptomatic patients. REFERENCE: Society of Radiologists in Ultrasound Liver Stiffness Thresholds (2020): LIVER STIFFNESS THRESHOLDS: *Shear wave velocity less than 1.3 m/s (Liver Stiffness equal or less than 5 kPa): High probability of being normal. *Shear wave velocity less than 1.7 m/s (Liver Stiffness less than 9 kPa): In the absence of other known clinical signs, rules out compensated advanced chronic liver disease. *Shear wave velocity between 1.7-2.1 m/s (Liver Stiffness 9-13 kPa): Suggestive of compensated advanced chronic liver disease but need further test for confirmation. *Shear wave velocity between 2.1-2.4 m/s (Liver Stiffness 13-17 kPa): Rules in compensated advanced chronic liver disease. *Shear wave velocity greater than 2.4 m/s (Liver Stiffness over 17 kPa): Suggestive of clinically significant portal hypertension. QUALITY OF DATA SET: *IQR/Median value equal or less than 0.15 implies a quality data set. *IQR/Median value over 0.15 implies a poor quality data set. SIGNIFICANT CHANGE FROM PRIOR EXAM: Significant change if liver stiffness measurement is 10% or greater from prior exam. OTHER CONSIDERATIONS: The stage of liver fibrosis may be overestimated in the setting of acute hepatitis, liver inflammation, elevated liver function tests, hepatic vascular congestion, obstructive cholestasis, non-fasting state, and infiltrative diseases such as amyloidosis and lymphoma. In some patients with NAFLD, the liver stiffness thresholds for compensated advanced chronic liver disease may be lower. In causes other than viral hepatitis and NAFLD, liver stiffness thresholds are not well established. Electronically signed by: Jeremy Anguiano MD 05/06/2025 09:16 AM EDT
== END 2025-05-06 08:03 | disposition home or self-care (01) ==
LOC: HO.US 08:02
PROVIDERS: PCP Nurse Practitioner Family; Visit Provider Internal Medicine
DX: R74.8 Abnormal levels of other serum enzymes (principal); K74.60 Unspecified cirrhosis of liver
CPT/HCPCS: 76700; 76981

== ENCOUNTER → 2025-05-06 08:04 | Outpatient (BNV) | payer OTHER, SELFPAY | PROVIDERS: PCP Nurse Practitioner Family; Visit Provider Radiology Diagnostic Radiology | DX: R74.8 Abnormal levels of other serum enzymes (principal) | CPT/HCPCS: 76700 ==

== ENCOUNTER 2025-05-11 08:37 | Outpatient (AMB) | payer OTHER, SELFPAY ==
[2025-05-11 08:45] VITALS: BP 110/60; PULSE 62; BMI 25.6
--- NOTE | 2025-05-11 08:45 | A.OFFVIS_ITS ---
Vital Signs 05/11/25 08:45 Height 5 ft 6 in Weight 158 lb 11.725 oz BMI 25.6 BP 110/60 Blood Pressure Location Lt brachial Position Sitting Pulse 62 Pulse Source Pulse Oximeter Intake Visit Reasons: leg swelling Width Stripper Required: Yes Width Stripper Name: MENDY [id number] Allergies pineapple Allergy (Severe, Verified 04/28/25 10:14) anyphylaxis tree and shrub pollen Allergy (Mild, Verified 04/28/25 10:14) Unknown Medication List - Last Reconciled 05/11/25 by Andrew Iqbal MD albuterol sulfate 90 mcg/actuation 2 puffs inhalation Q6H PRN 7 days aspirin 81 mg PO DAILY atorvastatin 40 mg PO BEDTIME buspirone 5 mg PO BID cyclobenzaprine 5 mg PO Q8H PRN diclofenac sodium 3% 1 appl topical BID hydrocortisone 2.5% 1 appl topical BID PRN metoprolol tartrate 25 mg PO BID polyethylene glycol 3350 (Miralax) 17 grams PO DAILY PRN 90 days HPI Comments Details: Mansoor returns for follow-up. To recall, he was initially seen in consultation regarding coronary disease. He used to live with the [place] but has moved here few years back. It seems that he underwent cardiac catheterization while in [facility] for a heart attack around 2012. The actual details are not very clear. During prior visits, he has described nonspecific chest pains at nighttime and some shortness of breath with activity as well as heart fluttering symptoms. He has had alcohol excess in the past but not recently. Also previous noncompliance but currently taking all his medications. Underwent cardiac catheterization followed but coronary artery bypass surgery. He is recovering well. He has been noticing some swelling in the right leg and ankle and that led to this current visit. Apart from this, he is not having any angina. Sometimes he feels as though he is taking a deep breath while he is resting, but not with activity. [facility] Medical History (Updated 03/19/25 @ 09:01 by Silvina Rm PA-C) Myocardial infarction involving left anterior descending (LAD) coronary artery Atherosclerotic cardiovascular disease High cholesterol Surgical History (Updated 03/19/25 @ 08:33 by Silvina Rm PA-C) S/P CABG x 3 Hx of colonoscopy H/O hernia repair H/O cardiac catheterization Family History Sister Ovarian cancer Brother Throat cancer Father Stroke Social History Household Members Other:: nephew Housing: Apartment Alcohol intake: current Alcohol intake frequency: a few times a month Patient Tobacco Use Status: Never used Tobacco e-Cigarette/Vaping Use: Never Used service: No Cognitive needs: No Hearing needs: No Vision needs: Yes Review of Systems Const Denies weakness ENT Denies dizziness Card Denies chest pain, Denies chest pain with activity, Denies syncope, Denies rapid heart rate, Denies pedal edema, Denies edema, Denies leg edema, Denies lightheadedness, Denies palpitations, Denies dyspnea, Denies dyspnea on exertion and Denies orthopnea Resp Denies cough, Denies dyspnea and Denies dyspnea on exertion GI Denies hematochezia and Denies change in stool character Musc Denies abnormal gait, Reports myalgias, Reports joint swelling, Denies muscle cramps, Denies muscle weakness, Denies numbness, Denies radiating pain into limb and Denies tingling Neuro Denies abnormal gait, Denies dizziness, Denies syncope, Denies numbness, Denies tingling and Denies weakness Endo Denies palpitations Physical Exam Vital Signs: Last Vital Signs Pulse 62 05/11/25 08:45 BP 110/60 05/11/25 08:45 BMI result Body Mass Index 25.6 Const General: comfortable and no acute distress Orientation/consciousness: patient oriented x3 HEENT Other: Unremarkable Head: Yes normal to inspection Neck Neck: Yes normal visual inspection Chest Chest palpation & inspection: normal inspection of the chest Resp Auscultation: clear to auscultation bilaterally Cardio Palpation: normal PMI Heart sounds: S1 normal heart sound present, S2 normal heart sound present, no gallops, no murmurs and no rubs GI Palpation (GI): Soft to palpation Back/Spine/Pelvis Other: unremarkable Skin General skin exam: no rashes or lesions noted Neuro General: patient oriented x3 Extrem Other: 1+ swelling R leg. General: Yes normal to inspection Psych Mental Status: mental status grossly normal Assessment & Plan Assessment & Plan (1) Atherosclerotic cardiovascular disease: Code(s): I25.10 - Atherosclerotic heart disease of [place] coronary artery without angina pectoris Category: Medical (2) Myocardial infarction involving left anterior descending (LAD) coronary artery: Code(s): I21.02 - ST elevation (STEMI) myocardial infarction involving left anterior descending coronary artery Category: Medical (3) Dyslipidemia: Code(s): E78.5 - Hyperlipidemia, unspecified Category: Medical (4) PVC (premature ventricular contraction): Code(s): I49.3 - Ventricular premature depolarization Category: Medical (5) S/P CABG x 3: Code(s): Z95.1 - Presence of aortocoronary bypass graft Category: Surgical Plan Cardiac studies reviewed. In the recent echocardiogram, LVEF is 45-50%. Wall motion abnormality in the LAD territory. [place], apical anterior/apical septal areas are akinetic. No significant valve findings. Myocardial perfusion imaging study shows mostly infarct or myocardium in the LAD territory/no clear reversible ischemia. In the diagnostic catheterization, normal left main, proximal LAD stent is patent. Mid to distal LAD with severe stenosis. Severe circumflex disease involving mid circumflex/bifurcation with OM1, 2 and 3. He is status post coronary artery bypass surgery x3. Continue long-term aspirin. He is also on beta-blockers and statins and that can be continued. In 2023 LDL was 226. In October of 2024, 91. Follow-up labs will the future. He has had PVCs on Holter with an 8% burden. May improve post surgery. He is on beta-blockers. With regard to the swelling in the right lower extremity, could be related to a vein graft but there is also a small lump palpable in the thigh area. We will just check a ultrasound to make sure there is no DVT. Follow up in a few weeks' time. 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 Discussion Notes I discussed with the patient the possibility of a blood clot causing the ankle swelling and the plan to perform an ultrasound to assess the situation. We also talked about the shortness of breath, noting that it does not occur during physical activity, which is a positive sign. The patient was advised to continue rehabilitation exercises and to monitor symptoms, with a follow-up planned in a month. Patient was informed and verbally consented to the use of an ambient scribe for clinic note documentation during this visit. Orders: Orders US venous duplex LE RT Today R60.9 - Edema, unspecified Patient Instructions: - Continue with rehabilitation exercises as advised. - Monitor for any changes in symptoms, especially shortness of breath. - Follow up in one month or sooner if symptoms worsen. Coding Level of Care Code Est Pt Level 4 (27526) Complex EM visit Add On G2211 Diagnoses Atherosclerotic cardiovascular disease I25.10 Myocardial infarction involving left anterior descending (LAD) coronary artery I21.02 Dyslipidemia E78.5 PVC (premature ventricular contraction) I49.3 S/P CABG x 3 Z95.1
== END 2025-05-11 09:16 | disposition home or self-care (01) ==
LOC: HO.HCS 08:38
PROVIDERS: PCP Nurse Practitioner Family; Visit Provider Internal Medicine
DX: I25.10 Atherosclerotic heart disease of native coronary artery without angina pectoris (principal); I21.02 ST elevation (STEMI) myocardial infarction involving left anterior descending coronary artery; E78.5 Hyperlipidemia, unspecified; I49.3 Ventricular premature depolarization; Z95.1 Presence of aortocoronary bypass graft
CPT/HCPCS: 99214

== ENCOUNTER 2025-05-11 12:22 | Outpatient (REF) | payer OTHER, SELFPAY ==
--- NOTE | ~2025-05-11 | US_ITS ---
EXAMINATION: US TRIPLEX LOWER EXTREMITY, RIGHT CLINICAL INFORMATION: Swelling/edema COMPARISON: None available. TECHNIQUE: Color-flow triplex imaging with spectral analysis and compression Doppler were performed on the right lower extremity. FINDINGS: Respiratory variation, normal compression and augmented flow are noted throughout the right lower extremity. The visualized common femoral vein, superficial femoral vein, profunda femoral vein, popliteal vein and midcalf peroneal and posterior tibial venous segments show no evidence of deep venous thrombosis. There is no Torres's cyst. There is a simple appearing fluid collection in the right medial thigh measuring 5.5 x 1.7 x 2.5 cm likely representing postoperative fluid collection post vein harvest for CABG. US/US venous duplex LE RT IMPRESSION: No evidence of deep venous thrombosis involving the right lower extremity. Fluid collection in the medial thigh measuring 5.5 x 1.7 x 2.5 cm likely representing a postoperative fluid collection. Electronically signed by: Oxana Denson MD 05/11/2025 01:17 PM EDT
== END 2025-05-11 12:23 | disposition home or self-care (01) ==
LOC: HO.US 12:22
PROVIDERS: PCP Nurse Practitioner Family; Visit Provider Internal Medicine
DX: I25.10 Atherosclerotic heart disease of native coronary artery without angina pectoris (principal); I21.02 ST elevation (STEMI) myocardial infarction involving left anterior descending coronary artery; E78.5 Hyperlipidemia, unspecified; I49.3 Ventricular premature depolarization; Z95.1 Presence of aortocoronary bypass graft; R60.9 Edema, unspecified; Z79.82 Long term (current) use of aspirin
CPT/HCPCS: 93971; 99212

== ENCOUNTER → 2025-05-11 12:26 | Outpatient (BNV) | payer OTHER, SELFPAY | PROVIDERS: PCP Nurse Practitioner Family; Visit Provider Radiology Diagnostic Radiology | DX: R60.0 Localized edema (principal) | CPT/HCPCS: 93971 ==

== ENCOUNTER 2025-05-13 12:10 | Outpatient (REF) | payer OTHER, SELFPAY ==
--- NOTE | ~2025-05-13 | XR_ITS ---
EXAMINATION: XR ANKLE, RIGHT CLINICAL INFORMATION: M25.571 - Pain in right ankle and joints of right foot COMPARISON: X-ray 04/28/2025 TECHNIQUE: AP, lateral, and mortise views of the right ankle. FINDINGS: No visible acute fracture or dislocation. No suspicious bony lesion. Ankle mortise is maintained. Talar dome is intact. No significant joint space narrowing. Subtalar articulation and calcaneus is intact. Lateral ankle soft tissue swelling is redemonstrated. Fifth metatarsal base is intact. XR/XR ankle RT 2V IMPRESSION: Lateral ankle soft tissue swelling. No radiographic evidence of acute fracture or malalignment. Follow-up imaging as clinically indicated. Electronically signed by: Gerber Underwood MD 05/13/2025 02:11 PM EDT
== END 2025-05-13 12:11 | disposition home or self-care (01) ==
LOC: HO.HMGCX 12:10
PROVIDERS: PCP Nurse Practitioner Family; Visit Provider Nurse Practitioner Family
DX: M25.571 Pain in right ankle and joints of right foot (principal); Z95.1 Presence of aortocoronary bypass graft
CPT/HCPCS: 73600; 99212

== ENCOUNTER 2025-05-13 12:10 | Outpatient (AMB) | payer OTHER, SELFPAY ==
--- NOTE | 2025-05-13 12:19 | A.OFFPC_ITS ---
Vital Signs 05/13/25 12:20 Height 5 ft 6 in Weight 161 lb BMI 26.0 BP 100/66 Blood Pressure Location Lt brachial Position Sitting Respiration 17 Pulse 63 Pulse Source Pulse Oximeter Temp 98.1 F Temp Source Oral Pulse Oximetry (%) 98 Oxygen Delivery Method Room Air Intake Visit Reasons: 4m follow up Intake Note: Pt is here today for 4 months follow up visit. Allergies pineapple Allergy (Severe, Verified 05/13/25 12:21) anyphylaxis tree and shrub pollen Allergy (Mild, Verified 05/13/25 12:21) Unknown Medication List - Last Reconciled 05/13/25 by Rod Parker, [facility]- albuterol sulfate 90 mcg/actuation 2 puffs inhalation Q6H PRN 7 days aspirin 81 mg PO DAILY atorvastatin 40 mg PO BEDTIME buspirone 5 mg PO BID cyclobenzaprine 5 mg PO Q8H PRN diclofenac sodium 3% 1 appl topical BID hydrocortisone 2.5% 1 appl topical BID PRN metoprolol tartrate 25 mg PO BID polyethylene glycol 3350 (Miralax) 17 grams PO DAILY PRN 90 days Tobacco use date assessed: 05/13/25 Dental Screening Dental Screen Date: 09/23/24 HPI 4m follow up HPI Details Chief Complaint The patient's chief complaint is right ankle pain with swelling. History of Present Illness The patient is a 54-year-old male presenting with follow-up for coronary artery bypass grafting and right ankle pain. 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 The patient reports right ankle pain, specifically at the lateral malleolus, which has been intermittent for the last two years. The pain is associated with swelling, and he experiences it mostly during walking. There is no exacerbation of pain with inversion or eversion of the foot. Social History - Exercise: The patient engages in a lot of walking. Health Maintenance Review of Systems - Cardiovascular: Denies chest pain, den ies dyspnea. - Musculoskeletal: Reports intermittent right ankle pain with swelling for the last 2 years. Physical Exam General: Cooperative, healthy appearing, comfortable, no acute distress and well developed Orientation: Patient oriented x3 Limitations: No limitations Head: Normal to inspection Ears: Hearing grossly normal bilaterally Nose: Normal external nose present Face and sinus: Normal facial exam Eyes: Appearance normal, both eyes and all related structures Neck: Normal visual inspection and Yes full ROM Respiratory: Normal respiratory effort and able to speak in complete sentences. Clear to auscultation bilaterally Cardiovascular: Regular rate and rhythm. Normal S1 and S2 GI: Normal to inspection. Soft to palpation and nontender Skin: No rashes or lesions noted Neuro: Patient oriented x3 Extremities: Swelling noted to the lateral right malleolus. Positive dorsalis pedis pulse. no pain with dorsiflexion and plantar flexion against resistance, inversion and eversion of right foot. Results Plan 1. Right Ankle Pain The patient is advised to consider physical therapy to address the right ankle pain and swelling. If there is no relief from physical therapy, an MRI may be considered in the future. Discussion Notes I discussed with the patient the importance of considering physical therapy for his right ankle pain and swelling. We also talked about the possibility of obtaining an MRI if physical therapy does not provide relief. Patient Instructions - Consider starting physical therapy for right ankle pain and swelling. - If no improvement with physical therap y, discuss the possibility of an MRI with your healthcare provider. [facility] Medical History Myocardial infarction involving left anterior descending (LAD) coronary artery Atherosclerotic cardiovascular disease High cholesterol Surgical History S/P CABG x 3 Hx of colonoscopy H/O hernia repair H/O cardiac catheterization Family History Sister Ovarian cancer Brother Throat cancer Father Stroke Social History Household Members Other:: nephew Housing: Apartment Alcohol intake: current Alcohol intake frequency: a few times a month Patient Tobacco Use Status: Never used Tobacco e-Cigarette/Vaping Use: Never Used service: No Cognitive needs: No Hearing needs: No Vision needs: Yes Questionnaire PHQ-9 Over the last 2 weeks, how often have you been bothered by any of the following problems? 1. Little interest or pleasure in doing things: not at all 2. Feeling down, depressed, or hopeless: not at all 3. Trouble falling or staying asleep, or sleeping too much: several days 4. Feeling tired or having little energy: several days 5. Poor appetite or overeating: several days 6. Feeling bad about yourself - or that you are a failure or have let yourself or your family down: not at all 7. Trouble concentrating on things, such as reading the newspaper or watching television: not at all 8. Moving or speaking so slowly that other people could have noticed. Or the opposite - being so fidgety or restless that you have been moving around a lot more than usual: not at all 9. Thoughts that you would be better off or of hurting yourself in some way: not at all Total score: 3 Depression Screening Interpretation: Negative Depression Screening Done: Yes Source: Developed by Drs. Jeremy Qureshi, Sun Wyman, Gus Mitchell and colleagues, with an educational mark from [employer]. Thrive Questionnaire Date Thrive assessed: 09/16/24 I am a: Patient What is your living situation today?: I have a steady place to live Within the past 12 months, did the food you bought not last and you didn't have the money to get more?: Never true Within the past 12 months, did you worry whether your food would run out before you got money to buy more?: Never true Do you have trouble paying for medicines?: No Do you have trouble getting transportation to medical appointments?: No Do you have trouble paying your heating and electricity bill?: No Do you have trouble taking care of your child, family member or friend?: No Do you have trouble with day-to-day activities such as bathing, preparing meals, shopping, managing finances, etc.?: No Are you currently unemployed and looking for a job?: No Are you interested in more education?: I choose not to answer this question Please select the resources that you would like help with: None Currently or been in a relationship where the following occur: No concerns reported THRIVE Score: 0 ZANE-7 AMB Questionnaire ZANE-7 Date ZANE - 7 assessed: 09/23/24 Feeling nervous, anxious, or on edge: 0 = Not at all Not being able to stop or control worryin = Not at all Worrying too much about different things: 0 = Not at all Trouble relaxin = Not at all Being so restless that it is hard to sit still: 0 = Not at all Becoming easily annoyed or irritable: 0 = Not at all Feeling afraid as if something awful might happen: 0 = Not at all Total ZANE-7 score (0-4 normal; 5-9 mild; 10-14 moderate; 15-21 severe): 0 Source: Developed by Drs. Jeremy Qureshi, Sun Wyman, Gus Mitchell and colleagues, with an educational mark from [employer]. Physical exam (Primary Care) Vital Signs: Last Vital Signs Temp 98.1 F 05/13/25 12:20 Pulse 63 05/13/25 12:20 Resp 17 05/13/25 12:20 BP 100/66 05/13/25 12:20 Pulse Ox 98 05/13/25 12:20 Oxygen Delivery Method Room Air 05/13/25 12:20 BMI result Body Mass Index 26.0 Tobacco/Smoking Status: Tobacco use Status Tobacco use date assessed 05/13/25 05/13/25 12:24 Patient Tobacco Use Status Never used Tobacco 05/13/25 12:19 e-Cigarette/Vaping Use Never Used 05/13/25 12:19 PHQ-9: PHQ-9 Score PHQ-9: Total score 3 05/13/25 12:24 Depression Screening Interpretation: Negative Thrive Assessment: Date of Thrive Assessment Date Thrive assessed 09/16/24 05/13/25 12:19 Currently or been in a relationship where the following occur: No concerns reported Coding Level of Care Code Est Pt Level 3 (92501) Diagnoses S/P CABG x 3 Z95.1 Right ankle pain M25.571 Screening PSA (prostate specific antigen) Z12.5 Assessment & Plan Assessment & Plan (1) S/P CABG x 3: Code(s): Z95.1 - Presence of aortocoronary bypass graft Category: Surgical (2) Right ankle pain: Code(s): M25.571 - Pain in right ankle and joints of right foot Category: Medical (3) Screening PSA (prostate specific antigen): Code(s): Z12.5 - Encounter for screening for malignant neoplasm of prostate Category: Medical Plan . Orders: Orders TSH reflex Free T4 Today Z95.1 - Presence of aortocoronary bypass graft UA CC w/rflx Micro + Cult Today Z95.1 - Presence of aortocoronary bypass graft Lipid Panel Today Z95.1 - Presence of aortocoronary bypass graft Complete Blood Count Auto Diff Today Z95.1 - Presence of aortocoronary bypass graft Comprehensive [place]. Panel Fast Today Z95.1 - Presence of aortocoronary bypass graft XR ankle RT 2V Today M25.571 - Pain in right ankle and joints of right foot Prostate Specific Antigen Scr Today Z12.5 - Encounter for screening for malignant neoplasm of prostate Medications: New meloxicam 7.5 mg PO DAILY PRN 30 tabs 0RF pain 30 days
[2025-05-13 12:20] VITALS: BP 100/66; PULSE 63; RESP 17; TEMP 36.7; O2SAT 98; BMI 26.0
== END 2025-05-13 14:23 | disposition home or self-care (01) ==
LOC: HO.HMCC 12:11
PROVIDERS: PCP Nurse Practitioner Family; Visit Provider Nurse Practitioner Family
DX: Z95.1 Presence of aortocoronary bypass graft (principal); M25.571 Pain in right ankle and joints of right foot; Z12.5 Encounter for screening for malignant neoplasm of prostate

== ENCOUNTER → 2025-05-13 14:00 | Outpatient (BNV) | payer OTHER, SELFPAY | PROVIDERS: PCP Nurse Practitioner Family; Visit Provider Radiology Diagnostic Ultrasound | DX: M25.571 Pain in right ankle and joints of right foot (principal); R22.41 Localized swelling, mass and lump, right lower limb | CPT/HCPCS: 73600 ==

== ENCOUNTER 2025-05-14 09:36 | Outpatient (REF) | payer OTHER, SELFPAY ==
[2025-05-14 10:16] LABS: MANUAL DIFF FLAG NO
[2025-05-14 10:45] LABS: Hematocrit 45.7 % (42.0-52.0); Hemoglobin 14.9 g/dl (14.0-18.0); Imm Gran Abs Auto 0.01 X10*3/uL (0.00-0.03); Imm Gran Pct Auto 0.2 % (0.0-0.4); Lymphocytes Absolute Auto 1.4 X10*3/uL (1.2-4.9); Mean Corpuscular HGB Conc 32.6 g/dl (31.0-36.0); Mean Corpuscular Hemoglobin 29.2 pg (27.0-33.0); Mean Corpuscular Volume 89.6 fL (80.0-98.0); NRBC Abs Auto 0.000 X10*3/uL (0.0-0.012); NRBC Pct Auto 0.0 /100WBC (0.0-0.2); Platelet Count 303 X10*3/uL (160-400); Red Blood Count 5.10 X10*6/uL (4.60-5.80); White Blood Count 5.7 X10*3/uL (4.8-10.8)
[2025-05-14 10:53] LABS: Hemoglobin A1C 145.1243 umol/L
[2025-05-14 10:54] LABS: INTERNATIONAL NORM RATIO 1.1 (0.9-1.1); Prothrombin Time 12.7 SEC (10.9-12.4)
[2025-05-14 11:28] LABS: Alanine Aminotransferase 23 U/L (0-40); Albumin Level 4.7 g/dL (3.5-5.0); Alkaline Phosphatase 147 U/L (39-117); Anion Gap 9 (12-20); Aspartate Amino Transferase 26 U/L (5-37); Blood Urea Nitrogen 13 mg/dL (9-16); Calcium 10.1 mg/dL (8.4-10.2); Carbon Dioxide 31 mmol/L (22-29); Chloride 105 mmol/L (96-108); Cholesterol 150 mg/dL (<200); Estimated Glomerular Filt Rate > 60; HDL Cholesterol 30 mg/dL (>40); Iron 88 mcg/dL (45-160); Percent Iron Saturation 26 % (15-50); Potassium 4.4 mmol/L (3.3-5.1); Sodium 141 mmol/L (135-145); Total Iron Binding Capacity 342 mcg/dL (228-428); Total Protein 8.1 g/dL (6.5-8.0); Triglycerides 86 mg/dL (<150); Unsaturated Iron Binding 254 ug/dL
[2025-05-14 11:32] LABS: HIV Num 1 0.06 S/CO (0.00-0.99)
[2025-05-14 11:36] LABS: Ferritin 27 ng/mL (20-250)
[2025-05-14 12:12] LABS: Appearance Urine Clear; Glucose Urine UA Negative (Negative); PH 6.5 (5.0-9.0); Specific Gravity - Urine 1.020 (1.005-1.025); UMIC TRIGGER UACC YES
[2025-05-15 10:58] LABS: Immunoglobulin A 500 mg/dL (47-310); Immunoglobulin G 1305 mg/dL (600-1640)
[2025-05-19 22:59] LABS: Liver Kidney Microsomal Ab <=20.0 U (<=20.0)
[2025-05-20 08:29] LABS: Phosphatidylethanol 16:0-18:1 NEGATIVE; Phosphatidylethanol 16:0-18:2 NEGATIVE
[2025-05-27 14:09] LABS: Anti Nuclear Antibody Pattern Nuclear, Speckled; Anti Nuclear Antibody Screen POSITIVE (NEGATIVE); Anti Nuclear Antibody Titer 1:80 titer
== END 2025-05-14 09:37 | disposition home or self-care (01) ==
LOC: HO.LAB 09:36
PROVIDERS: Absent Provider Nurse Practitioner Family; PCP Nurse Practitioner Family; Visit Provider Internal Medicine
DX: Z11.4 Encounter for screening for human immunodeficiency virus [HIV] (principal); Z01.84 Encounter for antibody response examination; Z12.5 Encounter for screening for malignant neoplasm of prostate; I49.3 Ventricular premature depolarization; I21.9 Acute myocardial infarction, unspecified; I25.10 Atherosclerotic heart disease of native coronary artery without angina pectoris; K74.60 Unspecified cirrhosis of liver; E78.5 Hyperlipidemia, unspecified; F41.9 Anxiety disorder, unspecified; Z95.1 Presence of aortocoronary bypass graft
CPT/HCPCS: 36415; 80053; 80061; 80321; 81001; 81003; 82103; 82105; 82390; 82728; 82784; 83036; 83540; 84153; 84443; 85025; 85610; 86015; 86038; 86039; 86364; 86376; 86381; 87389

== ENCOUNTER 2025-06-01 11:04 | Outpatient (AMB) | payer OTHER, SELFPAY ==
[2025-06-01 11:49] VITALS: BMI 26.0
--- NOTE | 2025-06-01 11:49 | MHC.OFFVIS ---
Vital Signs 06/01/25 11:49 Height 5 ft 6 in Weight 161 lb BMI 26.0 Intake Visit Reasons: Pain in right ankle and joints of right foot Intake Note: Mansoor is a 54 year year old male who presents today as a new patient for an evaluation of his right ankle pain. Pt reports the pain has been going on for about 1 year and he was prescribed pain and Anti inflamatory medication by his PCP and found no relief for his symptoms. He experiences pain and swelling with no injuries occuring. Allergies pineapple Allergy (Severe, Verified 06/01/25 11:54) anyphylaxis tree and shrub pollen Allergy (Mild, Verified 06/01/25 11:54) Unknown HPI HPI Pain in right ankle and joints of right foot: Details: 54-year-old male with past medical history of CABG February 2025 who presents with chronic right ankle pain. He states he has been having worsening ankle pain after starting cardiac rehab and walking. He has swelling to his ankle that is worse at the end the day and after activity. He has not tried any treatment so far. Patient denies any history and symptoms of claudication. Denies cramping to his legs. [facility] Medical History Myocardial infarction involving left anterior descending (LAD) coronary artery Atherosclerotic cardiovascular disease High cholesterol Surgical History S/P CABG x 3 Hx of colonoscopy H/O hernia repair H/O cardiac catheterization Family History Sister Ovarian cancer Brother Throat cancer Father Stroke Social History Household Members Other:: nephew Housing: Apartment Alcohol intake: current Alcohol intake frequency: a few times a month Patient Tobacco Use Status: Never used Tobacco e-Cigarette/Vaping Use: Never Used service: No Cognitive needs: No Hearing needs: No Vision needs: Yes Review of Systems Const All systems reviewed & are unremarkable except as noted in HPI and below Physical Exam Vital Signs: BMI result Body Mass Index 26.0 Extrem Other: *Bilateral Lower Extremity Focused Exam Vascular: DP/PT 2/4, CFT less than 3 seconds all digits, temperature gradient warm to cool, moderate edema to the retromalleolar region of the fibula right ankle Derm: No clinical signs of infection. Neuro: Protective sensation grossly intact to bilateral lower extremities. MSK: Moderate tenderness on palpation of the peroneal tendons inferior to the lateral malleolus and on active eversion. Eversion strength 5/5. Results Reviewed Results Reviewed: Podiatry X-ray Read: 05/13/2025 X-ray right ankle 3 views (AP, Mortise, Lateral) reviewed which shows no fractures, dislocations, osteochondral defects, or gross abnormalities. Anatomic alignment of the tibiotalar joint. Bone density is within normal limits. No evidence of swelling, foreign body, or calcifications. I personally reviewed the imaging and my findings are listed above. Assessment & Plan Assessment & Plan (1) Peroneal tendonitis of right lower extremity: Code(s): M76.71 - Peroneal tendinitis, right leg Category: Medical Plan: Discussed the etiology of his right ankle pain. Spleen that he has a higher incidence of peroneal tendinitis due to his rigid high arch cavus deformity. Reviewed right ankle x-rays with the patient and family member. Referred MRI right ankle to rule out tendon tear. Rx Medrol Dosepak Dispensed lace-up ankle brace. Instructed to perform range of motion and stretching exercises. Follow up in 1 month. (2) Cavus deformity of both feet: Code(s): Q66.71 - Congenital pes cavus, right foot; Q66.72 - Congenital pes cavus, left foot Category: Medical Plan: Educated the patient on his foot type. Explained that his high arch foot type (Cavus feet) can lead to altered weight distribution, resulting in increased pressure on the heel and forefoot. Patients may experience symptoms such as pain, callus formation, tendinitis, instability, lateral ankle sprains, and, in some cases, development of digital deformities (e.g., claw toes or hammertoes). Discussed the importance of shoe type with heel and forefoot padding and support. Explained that he will likely need custom orthotics in the near future however we will treat the tendinitis symptoms first. Orders: Orders PT Evaluation and Treatment Today M76.71 - Peroneal tendinitis, right leg MR ankle RT wo con Today M76.71 - Peroneal tendinitis, right leg Medications: New methylprednisolone (Medrol (Lonnie)) Take 6 tablets on day 1, 5 tablets on day 2, 4 tablets on day 3, 3 tablets on day 4, 2 tablets on day 5, and 1 tablet on day 6. 4 mg PO PER PKG DIR 21 ea 0RF Peroneal tendonitis M76.71 - Peroneal tendinitis, right leg Coding Level of Care Code New Pt Level 4 (10016) Diagnoses Peroneal tendonitis of right lower extremity M76.71 Cavus deformity of both feet Q66.71; Q66.72 Time Spent (min) 35
== END 2025-06-01 11:07 | disposition home or self-care (01) ==
LOC: HO.HPODS 11:04
PROVIDERS: PCP Nurse Practitioner Family; Visit Provider Student in an Organized Health Care Education/Training Program
DX: M76.71 Peroneal tendinitis, right leg (principal); Q66.71 Congenital pes cavus, right foot; Q66.72 Congenital pes cavus, left foot
CPT/HCPCS: 99204

== ENCOUNTER → 2025-06-01 11:04 | Outpatient (BNVA) | payer OTHER, SELFPAY | PROVIDERS: PCP Nurse Practitioner Family; Visit Provider Student in an Organized Health Care Education/Training Program | DX: M76.71 Peroneal tendinitis, right leg (principal); Q66.71 Congenital pes cavus, right foot; Q66.72 Congenital pes cavus, left foot | CPT/HCPCS: 99202 ==

== ENCOUNTER 2025-06-11 11:53 | Outpatient (AMB) | payer OTHER, SELFPAY ==
--- NOTE | 2025-06-11 12:30 | A.OFFVIS_ITS ---
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 Name: [email or web address] Accompanied by: Self / Same As Patient Allergies pineapple Allergy (Severe, Verified 06/01/25 11:54) anyphylaxis tree and shrub pollen Allergy (Mild, Verified 06/01/25 11:54) Unknown Medication List - Last Reconciled 06/11/25 by Andrew Iqbal MD albuterol sulfate 90 mcg/actuation 2 puffs inhalation Q6H PRN 7 days aspirin 81 mg PO DAILY atorvastatin 40 mg PO BEDTIME buspirone 5 mg PO BID cyclobenzaprine 5 mg PO Q8H PRN diclofenac sodium 3% 1 appl topical BID ezetimibe (Zetia) 10 mg PO DAILY hydrocortisone 2.5% 1 appl topical BID PRN meloxicam 7.5 mg PO DAILY PRN 30 days methylprednisolone (Medrol (Lonnie)) 4 mg PO PER PKG DIR metoprolol tartrate 25 mg PO BID polyethylene glycol 3350 (Miralax) 17 grams PO DAILY PRN 90 days HPI Comments Details: Mansoor returns for follow-up. To recall, he was initially seen in consultation regarding coronary disease. He used to live in the [facility], but has moved here few years back. It seems that he underwent cardiac catheterization while in [facility] for a heart attack around 2012. The actual details are not very clear. During prior visits, he has described nonspecific chest pains at nighttime and some shortness of breath with activity as well as heart fluttering symptoms. He has had alcohol excess in the past but not recently. Also previous noncompliance but currently taking all his medications. Underwent cardiac catheterization followed followed by coronary artery bypass surgery. He is recovering well. Overall, he states he is doing good. No new concerns. [facility] Medical History Myocardial infarction involving left anterior descending (LAD) coronary artery Atherosclerotic cardiovascular disease High cholesterol Surgical History S/P CABG x 3 Hx of colonoscopy H/O hernia repair H/O cardiac catheterization Family History Sister Ovarian cancer Brother Throat cancer Father Stroke Social History Household Members Other:: nephew Housing: Apartment Alcohol intake: current Alcohol intake frequency: a few times a month Patient Tobacco Use Status: Never used Tobacco e-Cigarette/Vaping Use: Never Used service: No Cognitive needs: No Hearing needs: No Vision needs: Yes Review of Systems Const Denies chills, Denies fatigue, Denies fever(s), Denies frequent falls, Denies weakness, Denies weight gain and Denies weight loss ENT Denies dizziness Card Denies chest pain, Denies leg edema, Denies lightheadedness, Denies palpitations, Denies dyspnea and Denies dyspnea on exertion Resp Denies cough, Denies dyspnea and Denies dyspnea on exertion GI Denies hematochezia Musc Denies abnormal gait, Denies muscle weakness, Denies numbness, Denies radiating pain into limb and Denies tingling Neuro Denies abnormal gait, Denies dizziness, Denies frequent falls, Denies numbness, Denies tingling and Denies weakness Endo Denies fatigue and Denies palpitations Physical Exam Vital Signs: Last Vital Signs Pulse 66 06/11/25 12:32 BP 100/80 06/11/25 12:32 BMI result Body Mass Index 26.5 Const General: comfortable and no acute distress Orientation/consciousness: patient oriented x3 HEENT Other: Unremarkable Head: Yes normal to inspection Neck Neck: Yes normal visual inspection Chest Chest palpation & inspection: normal inspection of the chest Resp Auscultation: clear to auscultation bilaterally Cardio Palpation: normal PMI Heart sounds: S1 normal heart sound present, S2 normal heart sound present, no gallops, no murmurs and no rubs GI Palpation (GI): Soft to palpation Back/Spine/Pelvis Other: unremarkable Skin General skin exam: no rashes or lesions noted Neuro General: patient oriented x3 Extrem General: Yes normal to inspection Psych Mental Status: mental status grossly normal Assessment & Plan Assessment & Plan (1) Atherosclerotic cardiovascular disease: Code(s): I25.10 - Atherosclerotic heart disease of [place] coronary artery without angina pectoris Category: Medical (2) Myocardial infarction involving left anterior descending (LAD) coronary artery: Code(s): I21.02 - ST elevation (STEMI) myocardial infarction involving left anterior descending coronary artery Category: Medical (3) Ischemic cardiomyopathy: Code(s): I25.5 - Ischemic cardiomyopathy Category: Medical (4) S/P CABG x 3: Code(s): Z95.1 - Presence of aortocoronary bypass graft Category: Surgical (5) Dyslipidemia: Code(s): E78.5 - Hyperlipidemia, unspecified Category: Medical (6) PVC (premature ventricular contraction): Code(s): I49.3 - Ventricular premature depolarization Category: Medical Plan Cardiac studies reviewed. In the recent echocardiogram, LVEF is 45-50%. Wall motion abnormality in the LAD territory. [place], apical anterior/apical septal areas are akinetic. No significant valve findings. Myocardial perfusion imaging study shows mostly infarct or myocardium in the LAD territory/no clear reversible ischemia. In the diagnostic catheterization, normal left main, proximal LAD stent is patent. Mid to distal LAD with severe stenosis. Severe circumflex disease involving mid circumflex/bifurcation with OM1, 2 and 3. He is status post coronary artery bypass surgery x3. Continue long-term aspirin. He is also on beta-blockers and statins and that can be continued. In 2023 LDL was 226. Recent LDL levels are 91 and 103 mg/dL. Still higher than ideal but much better than before. Add Zetia. He has had PVCs on Holter with an 8% burden. May improve post surgery. He is on beta-blockers. With regard to the swelling in the right lower extremity, ultrasound showed a fluid collection. Discussed that with Dr. Waite at the time of reporting and recommended conservative care only. We will plan on six-month follow-up with an echocardiogram. Orders: Orders CA echo transthoracic complete 6 Months I25.5 - Ischemic cardiomyopathy Medications: New ezetimibe (Zetia) 10 mg PO DAILY 90 tabs 1RF Coding Level of Care Code Est Pt Level 4 (35322) Complex EM visit Add On G2211 Diagnoses Atherosclerotic cardiovascular disease I25.10 Myocardial infarction involving left anterior descending (LAD) coronary artery I21.02 Ischemic cardiomyopathy I25.5 S/P CABG x 3 Z95.1 Dyslipidemia E78.5 PVC (premature ventricular contraction) I49.3
[2025-06-11 12:32] VITALS: BP 100/80; PULSE 66; BMI 26.5
== END 2025-06-11 12:45 | disposition home or self-care (01) ==
LOC: HO.HCS 11:53
PROVIDERS: PCP Nurse Practitioner Family; Visit Provider Internal Medicine
DX: I25.10 Atherosclerotic heart disease of native coronary artery without angina pectoris (principal); I21.02 ST elevation (STEMI) myocardial infarction involving left anterior descending coronary artery; I25.5 Ischemic cardiomyopathy; Z95.1 Presence of aortocoronary bypass graft; E78.5 Hyperlipidemia, unspecified; I49.3 Ventricular premature depolarization
CPT/HCPCS: 99214

== ENCOUNTER → 2025-06-11 11:53 | Outpatient (BNVA) | payer OTHER, SELFPAY | PROVIDERS: PCP Nurse Practitioner Family; Visit Provider Internal Medicine | DX: I25.10 Atherosclerotic heart disease of native coronary artery without angina pectoris (principal); I21.02 ST elevation (STEMI) myocardial infarction involving left anterior descending coronary artery; I25.5 Ischemic cardiomyopathy; Z95.1 Presence of aortocoronary bypass graft; E78.5 Hyperlipidemia, unspecified; I49.3 Ventricular premature depolarization | CPT/HCPCS: 99212 ==

== ENCOUNTER 2025-06-15 12:06 | Outpatient (AMB) | payer OTHER, SELFPAY ==
--- NOTE | 2025-06-15 12:16 | MHC.OFFVIS ---
Vital Signs 06/15/25 12:18 Height 5 ft 6 in Weight 160 lb 14.999 oz BMI 26.0 BP 117/78 Blood Pressure Location Lt brachial Position Sitting Pulse 72 Intake Visit Reasons: f/u U/S Intake Note: Mansoor presents in the office as a follow up for his ultrasound. CC: Hemooroids - acid reflux and states that he is taking the miralax to help with constipation. Vice President Industrial Relations Required: Yes Allergies pineapple Allergy (Severe, Verified 06/15/25 12:20) anyphylaxis tree and shrub pollen Allergy (Mild, Verified 06/15/25 12:20) Unknown HPI Comments Details: 53 y.o M with PMH of etOH use disorder, HTN, HLD, CAD s/p PCI in his 40s, who is here for following issues - Reports feeling of bloating and fullness x 2 months without N/V. No change in bowel habits. No unintentional weight loss. No new meds. Did travel to 2 months ago and that where the sx started. - With this he also started experiencing rectal bleeding after defecation. BM is brown, blood comes after and on wiping. Sometimes has pain on defecation. Last colo was in 2022 in [facility] - hemorrhoids +. No polyps as far pt is aware. Done at [facility]. These sx have resolved since. Currently no GI sx. - elevated LFTs noted 06/2024 which have since normalized. Drinks 8 oz of rum daily. Drinks more when he is traveling. Used to drink 16 oz but cut down due to abd discomfort above. Does not smoke. No IVDU. Mother had cirrhosis US 07/2024: LIVER: Heterogeneous liver texture combined with nodular surface raising suspicion for liver parenchymal disease liver cirrhosis. No ultrasound evidence of focal liver lesion. No intra or extrahepatic biliary dilatation. GALLBLADDER: The gallbladder is physiologically distended without evidence of stones, sludge, polyps, wall thickening or pericholecystic fluid. COMMON BILE DUCT: Normal in caliber measuring 0.5 cm in diameter. RIGHT KIDNEY: No hydronephrosis. No renal calculi or focal parenchymal lesions. The kidney measures 10.7 cm in maximum dimension. LEFT KIDNEY: No hydronephrosis. No renal calculi or focal parenchymal lesions. The kidney measures 10.3 cm in maximum dimension. Echogenic foci middle Pole possibly a tiny nonobstructing stones. SPLEEN: The spleen measures 7.6 cm in maximum dimension. 02/05/25: Seen with lumber inspector. Here for follow up on behest of his phys therapist and cardiac surgeon for rectal bleeding. Pt reports as long as has a regular BM for which he doesnt have to strain, does not see blood. However, when hes constipated and/or strains notes blood on wiping. Also with abd cramping. Has changed his diet and now takes miralax daily to have a soft BM so not seeing blood anymore. Path report from [facility] reviewed with the help of lumber inspector - consistent with chronic proctitis. Full procedure note is not available. This was Sep 2021. Pt does not recall if needed steroids after. Reports colonoscopy was done for blood in stool at that time as well. 06/15/25: Here for follow up. Accompanied by his partner. lumber inspector present. Had x3V CABG (Dr Rosas) at the end of February. Cont to report intermittent rectal bleeding. Reports palpable hemorrhoids. Otherwise no abd pain, n,V,d. Pt also with elevated ALP - isolated. Prev normal. Reports hx of heavy drinking but sober since surgery. PFSH Medical History Myocardial infarction involving left anterior descending (LAD) coronary artery Atherosclerotic cardiovascular disease High cholesterol Surgical History S/P CABG x 3 Hx of colonoscopy H/O hernia repair H/O cardiac catheterization Family History Sister Ovarian cancer Brother Throat cancer Father Stroke Social History Household Members Other:: nephew Housing: Apartment Alcohol intake: current Alcohol intake frequency: a few times a month Patient Tobacco Use Status: Never used Tobacco e-Cigarette/Vaping Use: Never Used service: No Cognitive needs: No Hearing needs: No Vision needs: Yes Review of Systems Const All systems reviewed & are unremarkable except as noted in HPI and below Physical Exam Exam Exam: No apparent distress Nonicteric Abdomen soft, nondistended Alert and oriented x3, normal gait Vital Signs: Last Vital Signs Pulse 72 06/15/25 12:18 BP 117/78 06/15/25 12:18 BMI result Body Mass Index 26.0 Assessment & Plan Assessment & Plan (1) Blood in stool: Code(s): K92.1 - Melena Category: Medical (2) S/P CABG x 3: Code(s): Z95.1 - Presence of aortocoronary bypass graft Category: Surgical (3) Elevated liver enzymes: Code(s): R74.8 - Abnormal levels of other serum enzymes Category: Medical Plan 1. Rectal bleeding Likely 2/2 hemorrhoids but needs a diagnostic colo. Can set this up Aug/Sep i.e 6 months from CABG. Pt aware will need cardiology clearance PEG prep Rxed and instructions reviewed. Handout provided as well. 2. Elevated ALP Reviewed with the pt this was a one time lab value. Recommend repeat LFTs as fasting as meals may affect ALP too. If cont to be elevated may need further testing to r/o AIH, PBC, PSC etc. Follow up after colo Orders: Orders Liver Panel Today R74.8 - Abnormal levels of other serum enzymes Referrals GI Procedure Notification K92.1 - Melena Medications: New hydrocortisone 1% 1 appl MN DAILY 28.4 grams 0RF peg 3350-electrolytes 236-22.74-6.74 -5.86 gram (Golytely) as per split prep instructions, until fecal effluent is clear 240 mL PO Q10M 4,000 mL 0RF colonoscopy Coding Level of Care Code Est Pt Level 4 (86807) Diagnoses Blood in stool K92.1 S/P CABG x 3 Z95.1 Elevated liver enzymes R74.8
[2025-06-15 12:18] VITALS: BP 117/78; PULSE 72; BMI 26.0
== END 2025-06-15 13:17 | disposition home or self-care (01) ==
LOC: HO.HGI 12:07
PROVIDERS: PCP Nurse Practitioner Family; Visit Provider Internal Medicine
DX: K92.1 Melena (principal); Z95.1 Presence of aortocoronary bypass graft; R74.8 Abnormal levels of other serum enzymes
CPT/HCPCS: 99214

== ENCOUNTER → 2025-06-15 12:06 | Outpatient (BNVA) | payer OTHER, SELFPAY | PROVIDERS: PCP Nurse Practitioner Family; Visit Provider Internal Medicine | DX: Z71.2 Person consulting for explanation of examination or test findings (principal); K92.1 Melena; R74.8 Abnormal levels of other serum enzymes; Z95.1 Presence of aortocoronary bypass graft | CPT/HCPCS: 99212 ==

== ENCOUNTER 2025-06-16 09:56 | Outpatient (REF) | payer OTHER, SELFPAY ==
[2025-06-16 10:52] LABS: Hematocrit 50.5 % (42.0-52.0); Hemoglobin 15.7 g/dl (14.0-18.0); Mean Corpuscular HGB Conc 31.1 g/dl (31.0-36.0); Mean Corpuscular Hemoglobin 28.5 pg (27.0-33.0); Mean Corpuscular Volume 91.7 fL (80.0-98.0); NRBC Abs Auto 0.000 X10*3/uL (0.0-0.012); NRBC Pct Auto 0.0 /100WBC (0.0-0.2); Platelet Count 325 X10*3/uL (160-400); Red Blood Count 5.51 X10*6/uL (4.60-5.80); White Blood Count 7.3 X10*3/uL (4.8-10.8)
[2025-06-16 11:31] LABS: Alanine Aminotransferase 34 U/L (0-40); Albumin Level 4.8 g/dL (3.5-5.0); Alkaline Phosphatase 122 U/L (39-117); Aspartate Amino Transferase 27 U/L (5-37); Cholesterol 135 mg/dL (<200); HDL Cholesterol 41 mg/dL (>40); Total Protein 8.1 g/dL (6.5-8.0); Triglycerides 76 mg/dL (<150)
== END 2025-06-16 09:57 | disposition home or self-care (01) ==
LOC: HO.LAB 09:56
PROVIDERS: PCP Nurse Practitioner Family; Visit Provider Internal Medicine
DX: R74.8 Abnormal levels of other serum enzymes (principal); K74.60 Unspecified cirrhosis of liver
CPT/HCPCS: 36415; 80061; 80076; 84443; 85027

== ENCOUNTER 2025-07-08 10:44 | Outpatient (AMB) | payer OTHER, SELFPAY ==
--- NOTE | 2025-07-08 10:47 | A.OFFVIS_ITS ---
Intake Visit Reasons: fu pain in rt/ankle joints of rt foot Intake Note: Mansoor is a 54 year year old male who presents today for a follow up for his right ankle pain. Patient reports he is still having pain. He states that he used his brace but it didn't relieve his pain. Accounts Payable Assistant Services: Accounts Payable Assistant Present (Dino ([id number])) Allergies pineapple Allergy (Severe, Verified 07/08/25 10:52) anyphylaxis tree and shrub pollen Allergy (Mild, Verified 07/08/25 10:52) Unknown HPI HPI fu pain in rt/ankle joints of rt foot: Details: 54-year-old male with past medical history of CABG February 2025 who returns for chronic right ankle pain. He states he took the medrol dose pack prescribed last visit incorrectly, however he still found relief with the medication and only notices swelling and pain returned after he stopped taking the medication. He is still going to cardiac rehab 3 times a week, using a stationary bike and a treadmill. He does not overall less pain and swelling to the ankle. History: Patient states he has been having worsening ankle pain which started after cardiac rehab and walking. He has swelling to his ankle that is worse at the end the day and after activity. He has not tried any treatment so far. Patient denies any history and symptoms of claudication. Denies cramping to his legs. [facility] Medical History Myocardial infarction involving left anterior descending (LAD) coronary artery Atherosclerotic cardiovascular disease High cholesterol Surgical History S/P CABG x 3 Hx of colonoscopy H/O hernia repair H/O cardiac catheterization Family History Sister Ovarian cancer Brother Throat cancer Father Stroke Social History Household Members Other:: nephew Housing: Apartment Alcohol intake: current Alcohol intake frequency: a few times a month Patient Tobacco Use Status: Never used Tobacco e-Cigarette/Vaping Use: Never Used service: No Cognitive needs: No Hearing needs: No Vision needs: Yes Office Procedures AMB Flexor Tendon/Plantar POD Tendon Injection Details of AMB Procedure: Procedure: Steroid injection Location: right ankle retromalleolar groove/ peroneal tendon Medication: 1.5cc 0.5% bupivicaine, 1cc dexamethasone, 0.5cc kenalog? Description: The right ankle was prepped using alcohol. A steroid injection was administered using sterile technique. The site was dressed using a band-aid. Post-procedure Instructions: The patient was instructed to apply ice to the injection site. The patient was advised to call the office if there are signs or symptoms of worsening pain, infection, or steroid flare. - Flexor Tendon Injection All charges added?: Procedure code (CPT) selection complete Office Meds triamcinolone acetonide 40 mg/mL suspension for injection Performing Provider: Caesar Bowser DPM Performing Location: [facility] Administered by: Caesar Bowser DPM on 07/08/25 19:57 Dose Route Admin Location Dispensed Lot Number Expiration Date [facility] Traveling Rep[employer] Accountant 20 mg Tendon Sheath Inj. 1 mL [id number] [employer] Total Dispensed Waste 1 mL 50 % dexamethasone sodium phosphate 4 mg/mL injection solution Performing Provider: Caesar Bowser DPM Performing Location: [facility] Administered by: Caesar Bowser DPM on 07/08/25 19:57 Dose Route Admin Location Dispensed Lot Number Expiration Date [facility] Traveling Repair Accountant 4 mg Tendon Sheath Inj. 1 mL [id number] [employer] Total Dispensed Waste 1 mL 0 % bupivacaine (PF) 0.5 % (5 mg/mL) injection solution Performing Provider: Caesar Bowser DPM Performing Location: [facility] Administered by: Caesar Bowser DPM on 07/08/25 19:57 Dose Route Admin Location Dispensed Lot Number Expiration Date [facility] Traveling Rep[employer] Accountant 2 mL intra-articular 10 mL [id number] [employer] Total Dispensed Waste 10 mL 80 % Results Reviewed Results Reviewed: Podiatry X-ray Read: 05/13/2025 X-ray right ankle 3 views (AP, Mortise, Lateral) reviewed which shows no fractures, dislocations, osteochondral defects, or gross abnormalities. Anatomic alignment of the tibiotalar joint. Bone density is within normal limits. No evidence of swelling, foreign body, or calcifications. I personally reviewed the imaging and my findings are listed above. Assessment & Plan Assessment & Plan (1) Peroneal tendonitis of right lower extremity: Code(s): M76.71 - Peroneal tendinitis, right leg Category: Medical Plan: * Discussed the etiology of his right ankle pain. * Administered cortisone injection to the right ankle. * Instructed to perform range of motion and stretching exercises. Hand-out dispensed. * Pending right ankle MRI * Follow up in 1 month. (2) Cavus deformity of both feet: Code(s): Q66.71 - Congenital pes cavus, right foot; Q66.72 - Congenital pes cavus, left foot Category: Medical Plan: * Educated the patient on his foot type. Explained that his high arch foot type (Cavus feet) can lead to altered weight distribution, resulting in increased pressure on the heel and forefoot. Patients may experience symptoms such as pain, callus formation, tendinitis, instability, lateral ankle sprains, and, in some cases, development of digital deformities (e.g., claw toes or hammertoes). Discussed the importance of shoe type with heel and forefoot padding and support. * Explained that he will likely need custom orthotics in the near future however we will treat the tendinitis symptoms first. Orders: Orders AMB Flexor Tendon / Plantar Fascia Injection Today M76.71 - Peroneal tendinitis, right leg Coding Level of Care Code Est Pt Level 3 (43231) Diagnoses Peroneal tendonitis of right lower extremity M76.71 Cavus deformity of both feet Q66.71; Q66.72 CPT Codes Tendon Injection - Tendon Injection POD1: - Flexor Tendon Injection ([id number]) Time Spent (min) 20
== END 2025-07-08 11:24 | disposition home or self-care (01) ==
LOC: HO.HPODS 10:45
PROVIDERS: PCP Nurse Practitioner Family; Visit Provider Student in an Organized Health Care Education/Training Program
DX: M76.71 Peroneal tendinitis, right leg (principal); Q66.71 Congenital pes cavus, right foot; Q66.72 Congenital pes cavus, left foot
CPT/HCPCS: 20550; 99213

== ENCOUNTER → 2025-07-08 10:44 | Outpatient (BNVA) | payer OTHER, SELFPAY | PROVIDERS: PCP Nurse Practitioner Family; Visit Provider Student in an Organized Health Care Education/Training Program | DX: M76.71 Peroneal tendinitis, right leg (principal); Q66.71 Congenital pes cavus, right foot; Q66.72 Congenital pes cavus, left foot | CPT/HCPCS: 20550; 99212; J0665; J1100; J3301 ==

== ENCOUNTER 2025-07-10 10:09 | Outpatient (AMB) | payer OTHER, SELFPAY ==
--- NOTE | 2025-07-10 10:45 | MHC.OFFVIS ---
Intake Visit Reasons: Rising PSA(set) Intake Note: Reason for Visit: New Patient Rising PSA Levels Urology Meds: None Blood Thinners: Aspirin Antibiotic Allergy: None Labs: PSA- 0.34 07/01/24 PSA 1.38 05/14/2025 A1C- 5.6 05/14/2025 Imaging: None Last PVR: None Family History: Prostate Cancer? Uncle has prostate cancer Bladder Cancer? no Kidney Cancer? no Previous Urology? no Patient Financial Services Coordinator Required: Yes Patient Financial Services Coordinator Language: Pian[employer] Salesperson Services: Patient Financial Services Coordinator Present Systems Program Manager: Systems Program Manager Present Accompanied by: deniz Allergies pineapple Allergy (Severe, Verified 07/10/25 10:49) anyphylaxis tree and shrub pollen Allergy (Mild, Verified 07/10/25 10:49) Unknown HPI Comments Details: Mansoor is a pleasant Lithuanian-speaking male. He is a patient of Dr. Cornejo. He is seen with the following urologic conditions - elevated PSA Lithuanian translation provided by qualified medical office technology instructor Previously evaluated for hypogonadism in [place] Discussion regarding starting testal Required open heart surgery in [employer] Follow-up in six-month with repeat PSA and testosterone Elevated PSA PSA rising greater than 0.75 within 12 month PSA - 06/29 0.34, 05/30 1.38 PFSH Medical History Myocardial infarction involving left anterior descending (LAD) coronary artery Atherosclerotic cardiovascular disease High cholesterol Surgical History S/P CABG x 3 Hx of colonoscopy H/O hernia repair H/O cardiac catheterization Family History Sister Ovarian cancer Brother Throat cancer Father Stroke Social History Household Members Other:: nephew Housing: Apartment Alcohol intake: current Alcohol intake frequency: a few times a month Patient Tobacco Use Status: Never used Tobacco e-Cigarette/Vaping Use: Never Used service: No Cognitive needs: No Hearing needs: No Vision needs: Yes Review of Systems Const Denies chills and Denies fever(s) Card Reports no additional complaints and Denies syncope Resp Denies cough GI Denies abdominal pain and Denies heartburn Reports as per HPI and Denies change in libido Neuro Denies syncope Psych Denies change in libido Endo Denies change in libido Physical Exam Const General: cooperative, healthy appearing, comfortable and no acute distress Orientation/consciousness: patient oriented x3 HEENT Face and sinus: Yes normal facial exam Mouth: moist mucous membranes Neck Neck: Yes normal visual inspection, Yes full ROM and Yes trachea midline Chest Chest palpation & inspection: normal inspection of the chest Resp Effort & Inspection: normal respiratory effort, able to speak in complete sentences and no respiratory distress GI Inspection: Yes normal to inspection Back/Spine/Pelvis Cervical Spine: normal cervical lordosis Thoracic/Lumbar Spine: thoracic and lumbar spine normal to inspection Skin General skin exam: no rashes or lesions noted Neuro General: patient oriented x3, gait normal, tone normal and moves all extremities Extrem General: Yes normal to inspection and Yes capillary refill normal Assessment & Plan Assessment & Plan (1) Hypogonadism in male: Code(s): E29.1 - Testicular hypofunction Category: Medical Plan Six-month follow-up lab Orders: Orders Prostate Specific Antigen 5 Months E29.1 - Testicular hypofunction Estrad Free (Tot Ultra + Free) 5 Months E29.1 - Testicular hypofunction Testosterone, Free/Total 5 Months E29.1 - Testicular hypofunction Lutenizing Hormone 5 Months E29.1 - Testicular hypofunction Patient Instructions: This note is constructed using voice recognition software. While every effort has been made to ensure accuracy senior sas programmer errors may have been included. Imaging studies, laboratory and physical exam results were discussed and reviewed in detail. No major barriers to patient understanding were identified. An opportunity to ask questions regarding the treatment plan was provided. All questions were answered. The patient expressed understanding and agreement with the above treatment plan. The patient is aware they should contact our office by phone for worsening of their current condition or the appearance of new urologic symptoms. Compliance is encouraged with any medications and followup testing that is ordered. It is a privilege to participate in the urologic care of your patient. If you have any questions or concerns regarding treatment for the above conditions, or other urologic issues, please do not hesitate to contact me. The office telephone contact is [phone]. Sincerely, Dr Zay Pires MD, [facility] - Urology Compassionate Specialist Care for the Genitourinary System Coding Level of Care Code New Pt Level 3 (14088) Diagnoses Hypogonadism in male E29.1
== END 2025-07-10 11:20 | disposition home or self-care (01) ==
LOC: HO.HUSH 10:10
PROVIDERS: PCP Nurse Practitioner Family; Visit Provider Urology
DX: E29.1 Testicular hypofunction (principal)
CPT/HCPCS: 99203

== ENCOUNTER → 2025-07-10 10:09 | Outpatient (BNVA) | payer OTHER, SELFPAY | PROVIDERS: PCP Nurse Practitioner Family; Visit Provider Urology | DX: E29.1 Testicular hypofunction (principal) | CPT/HCPCS: 99202 ==

== ENCOUNTER 2025-07-12 08:36 | Outpatient (REF) | payer OTHER, SELFPAY ==
--- NOTE | ~2025-07-12 | MR_ITS ---
EXAMINATION: MR ANKLE WITHOUT CONTRAST, RIGHT CLINICAL INFORMATION: Evaluate peroneal tendon complex. COMPARISON: None available. TECHNIQUE: MRI of the ankle was performed using routine sequences on a high-field scanner. FINDINGS: BONE/JOINTS: Tibiotalar articulation is maintained. Focal subchondral signal in the lateral aspect of the talar dome, could reflect degenerative changes. No loose or unstable osteochondral fragments is seen. No evidence of acute fracture or dislocation. Small tibiotalar joint fluid. MUSCLES/TENDONS: Severe peroneus brevis tendinosis. The tendon is partially torn, with flattening of the tendon, with the tendon fibers displaced along the the anterior and lateral aspect of the peroneus longus tendon, as it courses posterior to the fibula and along the calcaneus. Possible component of longitudinal split tear in this region. Moderate peritendinitis/tenosynovitis. Mild-moderate peroneus longus peritendinitis/tenosynovitis. Posterior tibial physiological fluid versus mild tenosynovitis. Medial flexor tendons intact. Intact extensor tendons. LIGAMENTS: Partial tearing of the ATFL. Posterior talofibular, tibiofibular ligaments intact. Calcaneofibular ligament grossly appears intact. Intact deltoid ligament ACHILLES TENDON: Intact. PLANTAR FASCIA: Intact. SINUS TARSI: Normal signal. TARSAL TUNNEL : No mass lesion SUBCUTANEOUS SOFT TISSUES: Focus of susceptibility artifact in the plantar medial subcutaneous region of the midfoot, could reflect a metallic foreign body. Correlate with x-ray. MR/MR ankle RT wo con IMPRESSION: 1. Severe peroneus brevis tendinosis and partial tearing. Moderate peritendinitis/tenosynovitis. See details above. 2. Mild-moderate peroneus longus peritendinitis/tenosynovitis. 3. Posterior tibial physiological fluid versus mild tenosynovitis. 4. Focal subchondral signal in the lateral aspect of the talar dome, could reflect degenerative changes. 5. ATFL partial tear.. 6. Focus of susceptibility artifact in the plantar medial subcutaneous tissues of the midfoot, correlate with x-ray for possible foreign body.. IMPRESSION: Unremarkable examination. Electronically signed by: Gerber Underwood MD 07/13/2025 09:52 AM EST
== END 2025-07-12 08:37 | disposition home or self-care (01) ==
LOC: HO.MRI 08:36
PROVIDERS: PCP Nurse Practitioner Family; Visit Provider Student in an Organized Health Care Education/Training Program
DX: M76.71 Peroneal tendinitis, right leg (principal)
CPT/HCPCS: 73721

== ENCOUNTER 2025-07-16 10:03 | Outpatient (AMB) | payer OTHER, SELFPAY ==
--- NOTE | 2025-07-16 10:14 | A.OFFVIS_ITS ---
Intake Visit Reasons: discuss mri results Intake Note: Madhuri is a 54 year old male who presents today for a follow up on his right ankle pain and discuss MRI results. At his last visit a cortisone injection was administered to is right ankle and he was advised to perform range of motion/ stretching exercises and patient was provided with an information sheet as well. Patient reports he is no longer experiencing any pain at this time and the cortisone injection has helped significantly however he still experiences slight pain when he moves his ankle. He would like to discuss his next steps for treatment and the MRI results. sign language interpreter ID [id number] Polymerization Engineer Required: Yes Polymerization Engineer Services: Polymerization Engineer Present Polymerization Engineer Name: [id number] Allergies pineapple Allergy (Severe, Verified 07/16/25 10:16) anyphylaxis tree and shrub pollen Allergy (Mild, Verified 07/16/25 10:16) Unknown HPI HPI discuss mri results: Details: 54-year-old male with past medical history of CABG February 2025 who returns for MRI review for chronic right ankle pain. He notes his pain has significantly improved/disappeared after the injection administered at his last visit. He still has some occasional pain depending on certain movements of his ankle. He is still going to cardiac rehab 3 times a week, using a stationary bike. History: Patient states he has been having worsening ankle pain which started after cardiac rehab and walking. He has swelling to his ankle that is worse at the end the day and after activity. Patient denies any history and symptoms of claudication. Denies cramping to his legs. [facility] Medical History Myocardial infarction involving left anterior descending (LAD) coronary artery Atherosclerotic cardiovascular disease High cholesterol Surgical History S/P CABG x 3 Hx of colonoscopy H/O hernia repair H/O cardiac catheterization Family History Sister Ovarian cancer Brother Throat cancer Father Stroke Social History Household Members Other:: nephew Housing: Apartment Alcohol intake: current Alcohol intake frequency: a few times a month Patient Tobacco Use Status: Never used Tobacco e-Cigarette/Vaping Use: Never Used service: No Cognitive needs: No Hearing needs: No Vision needs: Yes Review of Systems Const All systems reviewed & are unremarkable except as noted in HPI and below Physical Exam Extrem Other: *Bilateral Lower Extremity Focused Exam Vascular: DP/PT 2/4, CFT less than 3 seconds all digits, temperature gradient warm to cool, no remaining edema to the retromalleolar region of the fibula rig ht ankle Derm: No clinical signs of infection. Neuro: Protective sensation grossly intact to bilateral lower extremities. MSK: No tenderness on palpation of the peroneal tendons inferior to the lateral malleolus and on active eversion. Eversion strength 5/5. Results Reviewed Results Reviewed: Ordering Physician: Caesar Bowser DPM Date of Service: 07/12/25 Procedure(s): MR ankle RT wo con IMPRESSION: 1. Severe peroneus brevis tendinosis and partial tearing. Moderate peritendinitis/tenosynovitis. See details above. 2. Mild-moderate peroneus longus peritendinitis/tenosynovitis. 3. Posterior tibial physiological fluid versus mild tenosynovitis. 4. Focal subchondral signal in the lateral aspect of the talar dome, could reflect degenerative changes. 5. ATFL partial tear.. 6. Focus of susceptibility artifact in the plantar medial subcutaneous tissues of the midfoot, correlate with x-ray for possible foreign body.. Assessment & Plan Assessment & Plan (1) Peroneal tendonitis of right lower extremity: Code(s): M76.71 - Peroneal tendinitis, right leg Category: Medical Plan: * Discussed the etiology of his right ankle pain. * Instructed to perform range of motion and stretching exercises. Hand-out dis pensed. * Referred for physical therapy to begin in 2 weeks, giving a total of 3 weeks of decreased activity and recovery time status post injection * Recommended ankle compression sleeve to be used whenever he is working or undergoing high impact activities * Discussed he may need surgical treatment in the form of debridement and repair if his symptoms return/persist. We may planned for this once he is out of his rehab/ recovery period s/p CABG. * Follow up in 1 month. Orders: Orders PT Evaluation and Treatment Today M76.71 - Peroneal tendinitis, right leg Coding Level of Care Code Est Pt Level 4 (78354) Diagnoses Peroneal tendonitis of right lower extremity M76.71 Time Spent (min) 30
== END 2025-07-16 10:35 | disposition home or self-care (01) ==
LOC: HO.HPODS 10:04
PROVIDERS: PCP Nurse Practitioner Family; Visit Provider Student in an Organized Health Care Education/Training Program
DX: M76.71 Peroneal tendinitis, right leg (principal)
CPT/HCPCS: 99214

== ENCOUNTER → 2025-07-16 10:03 | Outpatient (BNVA) | payer OTHER, SELFPAY | PROVIDERS: PCP Nurse Practitioner Family; Visit Provider Student in an Organized Health Care Education/Training Program | DX: M76.71 Peroneal tendinitis, right leg (principal) | CPT/HCPCS: 99212 ==

== ENCOUNTER 2025-07-20 10:00 | Outpatient (RCR) | payer OTHER, SELFPAY | END 2025-07-20 12:03 | disposition home or self-care (01) | LOC: HO.CR 10:00 | PROVIDERS: PCP Nurse Practitioner Family; Visit Provider Internal Medicine | DX: Z95.1 Presence of aortocoronary bypass graft (principal) | CPT/HCPCS: 93798 ==